=== PATIENT | female | born 2000 | race Caucasian/White ===

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

== ENCOUNTER → 2018-10-31 16:20 | Outpatient (CLI) | payer OTHER, SELFPAY ==
[2018-10-31 12:03] VITALS: BMI 19.9
[2018-10-31 18:50] LABS: Chlamydia Trachomatis by PCR Negative (Negative)
[2018-10-31 18:51] LABS: Neisserai gonorrhoeae by PCR Negative (Negative); Probe Check PASS; Sample Adequacy Control PASS; Specimen Processing Control PASS
== END ==
PROVIDERS: Family Provider Family Medicine; PCP Family Medicine; Referring Provider Obstetrics & Gynecology; Visit Provider Obstetrics & Gynecology
DX: Z34.90 Encounter for supervision of normal pregnancy, unspecified, unspecified trimester (principal)
CPT/HCPCS: 87491; 87591

== ENCOUNTER → 2018-11-17 11:37 | Outpatient (CLI) | payer OTHER, SELFPAY ==
[2018-10-31 12:03] VITALS: BMI 19.9
[2018-11-17 12:19] LABS: Absolute Lymphocyte Count 1.72 X10^3/uL (0.83-4.51); Absolute Neutrophil Count 8.1 X10^3/uL (2.0-7.7); Basophil# 0.06 X10^3/uL; Basophil% 0.6 % (0-1); Eosinophil# 0.21 X10^3/uL; Hematocrit 40.7 % (37-47); Hemoglobin 13.7 g/dL (12.0-15.0); Lymphocyte # 1.72 X10^3/ul (4.0); Lymphocyte % 16.1 % (19-41); Mean Corp Hgb Conc 33.7 g/dL (32-36); Mean Corpuscular Hgb 30.3 pg (27.0-32.0); Mean Platelet Vol. 9.8 fl (6.2-12.0); Monocyte# 0.55 X10^3/uL; Monocyte% 5.2 % (0-10); NRBC Flagged by Analyzer 0 % (0-5); Neutrophil # 8.09 X10^3/uL (2.7-7.7); Neutrophil % 75.8 % (47-70); Platelet Count 308 K/mm3 (150-450); RBC Distribution Width CV 12.2 % (11.6-14.6); RBC Distribution Width SD 39.8 fl (35.1-43.9); Red Blood Count 4.52 M/mm3 (4.2-5.4); White Blood Count 10.7 K/mm3 (4.4-11.0)
[2018-11-17 13:25] LABS: HIV - WCH Non-Reactive (Nonreactive); Hepatitis B Surface Antigen Non-Reactive (Nonreactive); Rubella IgG 35.6 IU/mL
[2018-11-18 01:39] LABS: Rapid Plasmin Reagin (RPR) NONREACTIVE (NONREACTIVE)
[2018-12-01 11:03] LABS: Miscellaneous Lab Procedure RL
== END ==
PROVIDERS: Family Provider Family Medicine; PCP Family Medicine; Referring Provider Obstetrics & Gynecology; Visit Provider Obstetrics & Gynecology
DX: Z34.81 Encounter for supervision of other normal pregnancy, first trimester (principal)
CPT/HCPCS: 36415; 85025; 86592; 86703; 86762; 86850; 86900; 86901; 87340

== ENCOUNTER → 2019-01-17 12:17 | Outpatient (CLI) | payer OTHER, SELFPAY ==
[2018-11-30 09:43] VITALS: BMI 19.3
[2018-12-28 09:46] VITALS: BMI 19.3
--- NOTE | 2019-01-17 12:19 | US_ITS ---
STUDY: SECOND AND THIRD TRIMESTER OBSTETRICAL ULTRASOUND REASON FOR EXAM: Female, 18 years old evaluation of anatomy. LMP: 08/28/2018 TECHNIQUE: Transabdominal real-time exam with kerr scale image documentation. TECHNICAL QUALITY: Adequate. PRIOR ULTRASOUND: None. FINDINGS: There is a single intrauterine fetus. The fetus is in a cephalic presentation. There is demonstrated cardiac activity with a heart rate of 143 bpm. There is a normal amniotic fluid volume. The largest amniotic fluid pocket measures 4.5 x 7.9 cm. The amniotic fluid index (VANITA) is 15.0 cm. The placenta is posterior and not low-lying. There are Grade 0 placental changes. The cervix measures 3.6 cm in length. The adnexal regions are not visualized. BIOMETRY: BPD: 4.64 cm: 20 weeks, 0 days HC: 17.3 cm: 19 weeks, 5 days AC: 14.9 cm: 20 weeks, 1 days FL: 3.13 cm: 19 weeks, 4 days CI: 77.5 FL/BPD: 67.3 FL/AC: 21 HC/AC: 1.16 age by current US: 19 weeks, 6 days. MARCELO by current US: 06/06/2018. Estimated weight: 323 grams, +/- 48 grams, 27 %. Age by LMP: 20 weeks, 1 days. MARCELO by LMP: 06/04/2018. ANATOMY: Gender: Male Cranium: Normal lateral ventricles. Normal choroid plexus. Normal cerebellum. Normal cisterna magna. Normal face, nose and lips. Chest: Normal 4-chamber heart. Abdomen/Pelvis: Normal diaphragm. Normal stomach. Normal abdominal wall. Normal cord insertion. Normal 3 vessel cord. Normal kidneys. Normal bladder. Spine: Normal cervical spine. Normal thoracic spine. Normal lumbar spine. Normal sacrum. Extremities: Normal bilateral upper extremities. Normal bilateral lower extremities. US/OB Anatomy Scan IMPRESSION: Single living male fetus of 19 weeks and 6 days with an MARCELO of 06/06/2018. Normal anatomy. Grade 0 posterior and not low lying placenta. Amniotic fluid index of 15.0 cm. Cervical length of 3.6 cm. weight of 323 g +/- 48 g, 27 percentile. Electronically Signed: Racheal Bah MD at 21:27 EST , Service support ,
== END ==
PROVIDERS: Family Provider Family Medicine; PCP Family Medicine; Referring Provider Obstetrics & Gynecology; Visit Provider Obstetrics & Gynecology
DX: Z36.89 Encounter for other specified antenatal screening (principal); Z3A.19 19 weeks gestation of pregnancy
CPT/HCPCS: 76805

== ENCOUNTER → 2019-01-27 12:28 | Outpatient (CLI) | payer OTHER, SELFPAY ==
[2019-01-27 10:27] VITALS: BMI 19.3
== END ==
PROVIDERS: Family Provider Family Medicine; PCP Family Medicine; Referring Provider Obstetrics & Gynecology; Visit Provider Obstetrics & Gynecology
DX: R30.0 Dysuria (principal)
CPT/HCPCS: 87086; 87088

== ENCOUNTER → 2019-03-15 10:27 | Outpatient (CLI) | payer OTHER, SELFPAY ==
[2019-03-15 09:53] VITALS: BMI 19.3
[2019-03-15 10:50] LABS: Absolute Lymphocyte Count 1.48 X10^3/uL (0.83-4.51); Absolute Neutrophil Count 7.4 X10^3/uL (2.0-7.7); Basophil# 0.05 X10^3/uL; Basophil% 0.5 % (0-1); Eosinophil# 0.21 X10^3/uL; Eosinophils% 2.2 % (0-5); Hematocrit 37.3 % (37-47); Hemoglobin 12.6 g/dL (12.0-15.0); Lymphocyte # 1.48 X10^3/ul (4.0); Lymphocyte % 15.3 % (19-41); Mean Corp Hgb Conc 33.8 g/dL (32-36); Mean Corpuscular Hgb 31.3 pg (27.0-32.0); Mean Corpuscular Volume 92.8 fL (81-99); Mean Platelet Vol. 9.3 fl (6.2-12.0); Monocyte# 0.51 X10^3/uL; Monocyte% 5.3 % (0-10); NRBC Flagged by Analyzer 0 % (0-5); Neutrophil # 7.35 X10^3/uL (2.7-7.7); Platelet Count 251 K/mm3 (150-450); RBC Distribution Width CV 12.2 % (11.6-14.6); RBC Distribution Width SD 42.2 fl (35.1-43.9); Red Blood Count 4.02 M/mm3 (4.2-5.4); White Blood Count 9.7 K/mm3 (4.4-11.0)
[2019-03-15 11:08] LABS: Glucose Challenge Gest 1H 50g 97 mg/dL (70-140)
== END ==
LOC: PAVLAB 10:29
PROVIDERS: PCP Family Medicine; Referring Provider Obstetrics & Gynecology; Visit Provider Obstetrics & Gynecology
DX: Z34.92 Encounter for supervision of normal pregnancy, unspecified, second trimester (principal); Z3A.28 28 weeks gestation of pregnancy
CPT/HCPCS: 36415; 82950; 85025

== ENCOUNTER → 2019-03-30 15:31 | Outpatient (CLI) | payer OTHER, SELFPAY ==
[2019-03-29 08:52] VITALS: BMI 19.3
--- NOTE | 2019-03-30 15:33 | US_ITS ---
STUDY: SECOND AND THIRD TRIMESTER OBSTETRICAL ULTRASOUND - LIMITED REASON FOR EXAM: Female, 18 years old GROWTH LMP: August 29, 2018. PRIOR ULTRASOUND: Comparison is made with a prior examination dated January 17, 2019. TECHNIQUE: Transabdominal TECHNICAL QUALITY: Adequate. FINDINGS: There is a single intrauterine fetus. The fetus is in a cephalic presentation. There is demonstrated cardiac activity with a heart rate of 125 bpm. There is a normal amniotic fluid volume. The largest amniotic fluid pocket measures 5.9 cm. The amniotic fluid index (VANITA) is 15.51 cm. The placenta is posterior in location and is not low lying. There are Grade 0 placental changes. The cervix measures 3.3 cm in length. BIOMETRY: BPD: 7.11 cm: 28 weeks, 4 days HC: 29.63 cm: 30 weeks, 2 days AC: 25.54 cm: 29 weeks, 6 days FL: 5.47 cm: 29 weeks, 0 days Age by LMP: 30 weeks, 3 days. MARCELO by LMP: June 05, 2019. age by prior US: 30 weeks, 2 days. MARCELO by prior US: June 07, 2019. age by current US: 29 weeks, 3 days. MARCELO by current US: June 20, 2019. Estimated weight: 1389 grams, +/- 203 grams, 11 percentile. US/OB Limited With Biometrics IMPRESSION: Single live intrauterine gestation with a mean gestational age of 29 weeks and 3 days. The measurements obtained today fall within the normal expected range. Electronically Signed: Helder Paulino, at 10:36 EST , Service support ,
== END ==
PROVIDERS: PCP Family Medicine; Referring Provider Obstetrics & Gynecology; Visit Provider Obstetrics & Gynecology
DX: O26.843 Uterine size-date discrepancy, third trimester (principal); Z3A.00 Weeks of gestation of pregnancy not specified
CPT/HCPCS: 76816

== ENCOUNTER → 2019-05-03 11:30 | Outpatient (CLI) | payer OTHER, SELFPAY ==
[2019-03-29 08:52] VITALS: BMI 19.3
[2019-04-26 09:02] VITALS: BMI 19.3
--- NOTE | 2019-05-03 11:31 | US_ITS ---
STUDY: SECOND AND THIRD TRIMESTER OBSTETRICAL ULTRASOUND REASON FOR EXAM: Female, 18 years old GROWTH - SIZE SMALLER THAN DATES LMP: August 29, 2018. TECHNIQUE: Transabdominal TECHNICAL QUALITY: Adequate. PRIOR ULTRASOUND: Comparison is made with prior examination of March 30, 2019. FINDINGS: There is a single intrauterine fetus. The fetus is in a cephalic presentation. There is demonstrated cardiac activity with a heart rate of 1.4 bpm. There is a normal amniotic fluid volume. The largest amniotic fluid pocket measures 5.7 cm. The amniotic fluid index (VANITA) is 20.2 cm. The placenta is posterior in location and is not low lying. There are Grade 1 placental changes. The cervix was not measured due to the head positioning. The adnexal regions are not visualized. BIOMETRY: BPD: 7.9 cm: 31 weeks, 4 days HC: 30.8 cm: 34 weeks, 3 days AC: 29.7 cm: 33 weeks, 5 days FL: 6.6 cm: 33 weeks, 5 days CI: 74% FL/BPD: 83% FL/HC: FL/AC: 22% HC/AC: 1.04 age by current US: 33 weeks, 3 days. MARCELO by current US: June 18, 2019. Estimated weight: 2223 grams, +/- 325 grams, 10 %. age by prior US: 34 weeks, 2 days. MARCELO by prior US: June 12, 2019. Age by LMP: 35 weeks, 2 days. MARCELO by LMP: June 05, 2019. US/OB Limited With Biometrics IMPRESSION: Single live intrauterine gestation with a mean gestational age of 34 weeks and 2 days. The measurements obtained today fall within the lower normal expected range. Electronically Signed: Helder Paulino, at 14:49 EDT , Service support ,
== END ==
PROVIDERS: PCP Family Medicine; Referring Provider Obstetrics & Gynecology; Visit Provider Obstetrics & Gynecology
DX: O26.843 Uterine size-date discrepancy, third trimester (principal); Z3A.34 34 weeks gestation of pregnancy
CPT/HCPCS: 76816

== ENCOUNTER → 2019-05-10 | Outpatient (CLI) | payer OTHER, SELFPAY ==
[2019-05-10 08:54] VITALS: BMI 19.3
== END | disposition home or self-care (01) ==
LOC: LABSPEC 14:00
PROVIDERS: PCP Family Medicine; Referring Provider Obstetrics & Gynecology; Visit Provider Obstetrics & Gynecology
DX: Z34.81 Encounter for supervision of other normal pregnancy, first trimester (principal)
CPT/HCPCS: 87081

== ENCOUNTER 2019-05-25 02:37 | Inpatient (IN) | payer OTHER, SELFPAY ==
[2019-05-18 08:38] VITALS: BMI 19.3
[2019-05-25] MEDS: Lactated Ringers 1,000 ML 50 ML IV (02:53)
[2019-05-25] MEDS: Lactated Ringers 500 ML 999 ML IV (03:03)
[2019-05-25] MEDS: fentaNYL-bupivacaine (epidural) 100 ML BAG EPIDURAL (04:25)
[2019-05-25] MEDS: Oxytocin 30 units/NS 500 ml 30 UNITS/500 ML IV.SOLN 334 UNITS IV (05:12)
[2019-05-25 09:29] VITALS: BMI 22.7
--- NOTE | 2019-05-25 10:36 | NURSING ---
[email or web address] charting unavailable at this time. charting completed per downtime policy on paper from [id number] through [id number]
[2019-05-25 12:05] VITALS: BP 90/54; PULSE 80; RESP 16; TEMP 36.5
[2019-05-25 14:59] LABS: White Blood Count 10.6 K/mm3 (4.4-11.0)
[2019-05-25 15:00] LABS: Hematocrit 36.7 % (37-47); Hemoglobin 12.7 g/dL (12.0-15.0); Mean Corp Hgb Conc 34.6 g/dL (32-36); Mean Corpuscular Hgb 31.8 pg (27.0-32.0); Mean Corpuscular Volume 91.8 fL (81-99); Mean Platelet Vol. 10.1 fl (6.2-12.0); Platelet Count 204 K/mm3 (150-450); RBC Distribution Width CV 12.4 % (11.6-14.6); RBC Distribution Width SD 41.3 fl (35.1-43.9); Scan Indicated on CBC? Y/N NO
[2019-05-25 17:10] VITALS: BP 106/65; PULSE 73; RESP 16; TEMP 36.6
[2019-05-25] MEDS: Naproxen 250 MG Tablet 500 MG PO (17:17)
[2019-05-25 19:30] VITALS: BP 100/56; PULSE 79; RESP 16; TEMP 36.9
[2019-05-25 23:20] VITALS: BP 102/62; PULSE 76; RESP 16; TEMP 36.4
--- NOTE | 2019-05-26 03:38 | HP.PCM_ITS ---
- Problem List (1) IUGR (intrauterine growth restriction) Status: Acute Comment: mfm consult, twice weekly testing once with MFM and once with [facility] office. deliver by 39 (2) Status: Acute Qualifiers: Comment: NIPT-low risk, declines NTD screen. declines carrier. Anatomy US normal (3) Supervision of normal Status: Acute Qualifiers: Comment: PRR MARCELO 06/05/19 boy PC Mark Kennedy History Date of Admission: 05/25/19 Final MARCELO: 06/05/19 Gestational age: 38 Weeks and 4 Days History of this : This is a 19 year-old, , at 38 weeks gestational age presents IAL. she denies any vb admits lof good fm and regular ctx. she has had a complicated by IUGR with reassuring testing. Medical History: Medical History (Last Reviewed 05/18/19 @ 08:36 by Tamera Lo) Blood in stool K92.1 Hemorrhoid K64.9 Anal fissure (Resolved) K60.2 PVCs (premature ventricular contractions) (Resolved) I49.3 Surgical History: Surgical History (Last Reviewed 05/18/19 @ 08:36 by Tamera Lo) No pertinent past surgical history Allergies No Known Allergies Allergy (Verified 05/25/19 09:30) Home Medications: Home Medications prenat.vits,lj,kbw-[id number] 1 tab PO QDAY 03/12/17 hydrocortisone 2.5 % topical cream with perineal applicator 1 applic RC QD-BID PRN #30 g 11/16/17 promethazine 12.5 mg tablet 12.5 mg PO Q6H PRN #120 tab 11/01/18 Smoking Status: Never smoker Alcohol: None Number of Fetus(es): 1 NST - FHR Rate Baby A Baseline: 130 Variability:: Moderate Accelerations:: 15 x 15 Decelerations:: None NST Reactive:: Yes FHR Category:: Category I Uterine Activity:: regular History Past Pregnancies: Past Pregnancies previous term uncomplicated Labs: Mom's Labs & Results 05/25/19 05/25/19 02:53 02:53 WBC 10.6 RBC 4.00 L Hgb 12.7 Hct 36.7 L MCV 91.8 MCH 31.8 MCHC 34.6 RDW Std Deviation 41.3 RDW Coeff of Kendra 12.4 Plt Count 204 MPV 10.1 Blood Type B POSITIVE Antibody Screen NEGATIVE Course Did the patient receive Yes care? Labs Blood Type: B RH: POSITIVE RPR/VDRL/Syphilis Nonreactive Rubella status Immune HbSAg Negative Date Done: 11/18/19 Chlamydia Negative Gonorrhea Negative HIV/AIDS Non-Reactive Group B Strep: Negative Current Obstetrical History Gestational Diabetes No Incompetent Cervix No Infertility No IUGR Yes Macrosomia No Hypertension/Pre-eclampsia No Placenta Previa/Abruption No PTL/PROM No Uterine anomaly No Oligohydramnios No Polyhydramnios No Multiple gestation No Past Medical History Asthma No Diabetes No Hypertension No Heart disease No Mitral valve prolapse No Neurologic/Seizure disorder/ No Migraines Kidney disease No Liver disease No Varicosities No Clotting disorders/Hx of DVT No Thyroid Dysfunction No Other medical diseases No Psychiatric disorders No Major trauma No Abnormal PAP smear No Sleep apnea No Mammogram in the last 2 years No Social History Marital Status: Alleged father Peter Hx Smoking No Smoking Status Never smoker Expected Infant Delivery Method: Spontaneous Vaginal Review of Systems Constitutional: Denies: Fever, Malaise Eyes: Denies: Blurred vision, Vision Change HEENT: Denies: Head Aches, Visual Changes Cardiovascular: Denies: Chest Pain, Palpitations Respiratory: Denies: Cough, Shortness of Breath, Wheezing Gastrointestinal: Denies: Abdominal Pain, Diarrhea, Nausea, Vomiting Genitourinary: Denies: Dysuria, Hematuria Musculoskeletal: Denies: Joint Pain, Muscle pain Skin: Denies: Lesions, Rash Neurological: Denies: Blurred vision, Focal weakness, Headaches Psychiatric: Denies: Anxiety, Depression Endocrine: Denies: Heat/ Cold Intolerance Hematologic/ Lymphatic: Denies: Easy Bruising, Easy Bleeding Physical Exam Vitals: Vital Signs Temp Pulse Resp BP 97.5 F L 76 16 102/62 05/25/19 23:20 05/25/19 23:20 05/25/19 23:20 05/25/19 23:20 General: Alert, Cooperative, No apparent distress HEENT: Atraumatic, Normocephalic. Negative for: Thyromegaly, Lymphadenopathy Cardiovascular: Regular rate Lungs: Normal air movement Abdomen: Soft, Non Tender, Gravid Neurological: Deep Tendon Reflexes 2+/4 and Symmetrical, Neuro grossly intact. 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 Negative for: Vulvar lesions Estimated gestational size: Appropriate for gestational size Presentation: Cephalic Assessment/Plan All Active Problems (Last Reviewed 05/18/19 @ 08:36 by Tamera Lo) IUGR (intrauterine growth restriction) (Acute) (Acute) Supervision of normal (Acute) Abdominal or pelvic swelling, mass, or lump, left lower quadrant (Resolved) Active labor at term (Resolved) Anal fissure (Resolved) False labor (Resolved) PVCs (premature ventricular contractions) (Resolved) Supervision of normal first (Resolved) Uterine size-date discrepancy, third trimester (Resolved) This is a 19 year-old, , at 38 weeks gestational age presents IAL. Patient presents IAL, plan expectant management for , Pain management: epi. GBS negative Management of any complications: IUGR I have reviewed the [facility] and made any clinically relevant updates.
--- NOTE | 2019-05-26 03:42 | PCM.OPRPT ---
Problem List (1) IUGR (intrauterine growth restriction) Status: Acute Comment: mfm consult, twice weekly testing once with MFM and once with [facility] office. deliver by 39 (2) Status: Acute Qualifiers: Comment: NIPT-low risk, declines NTD screen. declines carrier. Anatomy US normal (3) Supervision of normal Status: Acute Qualifiers: Comment: PRR MARCELO 06/05/19 boy PC Mark Kennedy Vaginal Delivery Maternal Presentation: Active Labor ial Amniotic Fluid Description: Clear Final MARCELO: 06/05/19 Gestational age: 38 Weeks and 4 Days Date of Procedure: 05/25/19 Pre-Operative Diagnosis: ial Post-Operative Diagnosis: same Surgery/ Procedure Performed: Spontaneous Vaginal Delivery Type of Anesthesia: Epidural Description of Procedure: Patient began pushing and delivered the head in the ANASTASIIA presentation. The head was delivered atraumatically. The anterior and posterior shoulders delivered without complication followed by the rest of the and the infant was placed on the maternal abdomen. Delayed cord clamping was employed for approximately 60 seconds. Cord was clamped and cut and gentle traction was applied to the cord and the placenta delivered spontaneously immediately following it was noted to be intact with three-vessel cord. The perineum and vagina were inspected and noted to have no laceration. Patient and tolerated delivery well. Presentation: ANASTASIIA Placental Delivery Description: Spontaneous Placenta Disposition: [facility] Cord Entanglement: None Infant A gender: Male Episiotomy Description: None Laceration: None Medications given after delivery: IV Pitocin Complications: None Multi Select Codes - Urinary/Genital Urinary/Genital CPT Codes: 97243 Vaginal Delivery [facility]
--- NOTE | 2019-05-26 04:11 | PCM.PN.OB ---
Subjective: doing well no complaints pain controlled no CP SOB N V ambulating well tolerating po lochia moderate, going well - Physical Exam Vitals/I&O's: Vital Signs Temp Pulse Resp BP 97.5 F L 76 16 102/62 05/25/19 23:20 05/25/19 23:20 05/25/19 23:20 05/25/19 23:20 Oxygen Delivery Method Room Air Weight: 132 lb 6 oz Body Mass Index (BMI) 22.7 Intake and Output for Last 24 Hours 05/24/19 05/25/19 05/26/19 23:59 23:59 23:59 Intake Total 1248.33 / 1248.33 Output Total 1000 / 1000 Balance 248.33 / 248.33 General: Alert, Oriented x3 Laboratory Results 05/25/19 02:53: Blood Type B POSITIVE, Antibody Screen NEGATIVE 05/25/19 02:53: WBC 10.6, RBC 4.00 L, Hgb 12.7, Hct 36.7 L, MCV 91.8, MCH 31.8, MCHC 34.6, RDW Std Deviation 41.3, RDW Coeff of Kendra 12.4, Plt Count 204, MPV 10.1 Current Medications Acetaminophen (Tylenol) 1,000 mg PO Q8H PRN PRN PRN Reason: Pain Score 1-3/10 Bisacodyl (Dulcolax) 10 mg RECTAL UD PRN PRN Reason: If no BM Dibucaine (Dibucaine) 1 applic TOPICAL TID PRN PRN; Protocol PRN Reason: Discomfort Ephedrine Sulfate () 10 mg IV Q10M PRN PRN Reason: hypotension Ephedrine Sulfate () 10 mg IM Q30M PRN PRN Reason: hypotension Hydrocortisone (Hytone) 1 applic TOPICAL TID PRN PRN; Protocol PRN Reason: Discomfort Naloxone HCl 4 mg/ Dextrose 504 mls @ 0 mls/hr IV .Q0M PRN; Protocol PRN Reason: To maintain Resp. rate >10 Methylergonovine Maleate (Methergine) 0.2 mg IM X1 PRN PRN Reason: Excess bleeding/uterine atony Nalbuphine HCl (Nubain) 5 mg IV Q3H PRN PRN PRN Reason: ITCHING Naloxone HCl (Narcan) 0.02 mg IV Q1M PRN PRN Reason: RR< 10 AND PT UNRESPONSIVE Naproxen (Naprosyn) 500 mg PO Q8H PRN PRN PRN Reason: Pain Score 1-3/10 Last Admin: 05/25/19 17:17 Dose: 500 mg Documented by: Ondansetron HCl (Zofran) 4 mg IV Q4H PRN PRN PRN Reason: Nausea Oxycodone HCl (Oxyir) 5 - 10 mg PO Q4H PRN PRN PRN Reason: Pain Score 4-10/10 Senna/Docusate Sodium (Senokot-S, Shruthi-Colace) 1 - 2 tablet PO DAILY PRN PRN PRN Reason: Constipation Simethicone (Mylicon) 80 mg PO PCHS PRN PRN Reason: Indigestion/Stomach pain Sodium Chloride () 5 - 15 ml IV UD PRN PRN Reason: SALINE FLUSH Medical Necessity - Tobacco Use Smoking Status: Never smoker Assessment/Plan All Active Problems (Last Reviewed 05/18/19 @ 08:36 by Tamera Lo) IUGR (intrauterine growth restriction) (Acute) (Acute) Supervision of normal (Acute) Abdominal or pelvic swelling, mass, or lump, left lower quadrant (Resolved) Active labor at term (Resolved) Anal fissure (Resolved) False labor (Resolved) PVCs (premature ventricular contractions) (Resolved) Supervision of normal first (Resolved) Uterine size-date discrepancy, third trimester (Resolved) s/p PPD # 1 1. routine post delivery care 2. breast feeding- support given 3. rh positive 4. rubella immune
--- NOTE | 2019-05-26 04:20 | DCINST_ITS ---
Discharge Diet: No Restrictions Discharge Activity: Return to Normal Activity, May not drive while taking narcotic pain medications., May Shower May resume sexual activity in: 4-6 weeks Call your doctor if your incision/area has: Continuous Slow Oozing, Sudden Increased Bleeding, Increased Pain/ Swelling, Increased Redness, Foul Smelling Discharge Additional Instructions: If you experience any of the following, contact your healthcare provider. * Bleeding that soaks a pad every hour for 2 hours * Fever 100.4 or higher * Unrelieved incision or abdominal pain * Swelling, redness, discharge or bleeding from your incision or episiotomy site * Your incision begins to separate * Problems urinating (including inability to urinate or burning while urinating). * Visual changes * Severe headache * Flu-like symptoms * Pain or redness in one of both of your breasts * Pain, warmth, tenderness or swelling in your legs, especially the calf area * Frequent nausea and vomiting * Symptoms of depression or anxiety If you experience any of the following, call 911 or go to the nearest Emergency Room. * Chest pain * Problems breathing * Seizure activity * Partial or complete paralysis of a body part, slurred speech, weakness or drooping of the face, or a sudden inability to walk or hold your balance Allergies/Adverse Reactions: Allergies No Known Allergies Allergy (Verified 05/25/19 09:30) Medications to take at Discharge prenat.vits,lj,lmo-jcvf-rlfcb 1 tab PO QDAY 03/12/17 hydrocortisone 2.5 % topical cream with perineal applicator 1 applic RC QD-BID PRN #30 g 11/16/17 promethazine 12.5 mg tablet 12.5 mg PO Q6H PRN #120 tab 11/01/18 Please Follow Up With: Mary Ann Boogie MD - [phone] When: Call to make an appointment with your doctor in 6 weeks. If you had elevated Blood pressure or 4th degree laceration you will need to be seen in 2 weeks. Primary Care Physician: Ge Rodarte MD [Primary Care Provider] - Test Results: Test results from this visit will be discussed in further detail at your follow- up appointment, if applicable.
--- NOTE | 2019-05-26 04:20 | PCM.DCVAG ---
Discharge Diet: No Restrictions Discharge Activity: Return to Normal Activity, May not drive while taking narcotic pain medications., May Shower May resume sexual activity in: 4-6 weeks Call your doctor if your incision/area has: Continuous Slow Oozing, Sudden Increased Bleeding, Increased Pain/ Swelling, Increased Redness, Foul Smelling Discharge Additional Instructions: If you experience any of the following, contact your healthcare provider. Bleeding that soaks a pad every hour for 2 hours Fever 100.4 or higher Unrelieved incision or abdominal pain Swelling, redness, discharge or bleeding from your incision or episiotomy site Your incision begins to separate Problems urinating (including inability to urinate or burning while urinating). Visual changes Severe headache Flu-like symptoms Pain or redness in one of both of your breasts Pain, warmth, tenderness or swelling in your legs, especially the calf area Frequent nausea and vomiting Symptoms of depression or anxiety If you experience any of the following, call 911 or go to the nearest Emergency Room. Chest pain Problems breathing Seizure activity Partial or complete paralysis of a body part, slurred speech, weakness or drooping of the face, or a sudden inability to walk or hold your balance Allergies/Adverse Reactions: Allergies No Known Allergies Allergy (Verified 05/25/19 09:30) Medications to take at Discharge prenat.vits,lj,tcx-lpes-jqofj 1 tab PO QDAY 03/12/17 hydrocortisone 2.5 % topical cream with perineal applicator 1 applic RC QD-BID PRN #30 g 11/16/17 promethazine 12.5 mg tablet 12.5 mg PO Q6H PRN #120 tab 11/01/18 Please Follow Up With: Mary Ann Boogie MD - [phone] When: Call to make an appointment with your doctor in 6 weeks. If you had elevated Blood pressure or 4th degree laceration you will need to be seen in 2 weeks. Primary Care Physician: Ge Rodarte MD [Primary Care Provider] - Test Results: Test results from this visit will be discussed in further detail at your follow-up appointment, if applicable.
[2019-05-26 05:10] VITALS: BP 99/61; PULSE 68; RESP 16; TEMP 36.4
[2019-05-26 08:00] VITALS: BP 109/70; PULSE 81; RESP 18; TEMP 36.6
[2019-05-26] MEDS: Senna/Docusate Sodium 1 Tablet PO (09:29)
[2019-05-26 13:03] VITALS: BP 125/76; PULSE 78; RESP 18; TEMP 36.4
== END 2019-05-26 13:15 | disposition home or self-care (01) | DRG 807 ==
LOC: WPOUT 08:57 → WP 08:59
PROVIDERS: Admitting Provider Obstetrics & Gynecology; PCP Family Medicine; Referring Provider Obstetrics & Gynecology; Visit Provider Obstetrics & Gynecology
DX: O36.5990 Maternal care for other known or suspected poor fetal growth, unspecified trimester, not applicable or unspecified (principal); Z37.0 Single live birth; Z3A.38 38 weeks gestation of pregnancy
CPT/HCPCS: 59025; 59050; 85027; 86850; 86900; 86901; 99218; J7120; G0378

== ENCOUNTER 2019-07-14 17:30 | Outpatient (CLI) | payer OTHER, SELFPAY ==
[2019-07-05 10:42] VITALS: BMI 22.7
== END 2019-07-14 18:30 | disposition home or self-care (01) ==
LOC: WPOUT 17:39 → WP 17:40
PROVIDERS: PCP Family Medicine; Visit Provider Obstetrics & Gynecology
DX: P92.5 Neonatal difficulty in feeding at breast (principal)
CPT/HCPCS: 96158; 96159

== ENCOUNTER → 2020-03-28 12:07 | Outpatient (CLI) | payer OTHER, SELFPAY ==
[2019-07-05 10:42] VITALS: BMI 22.7
[2020-03-28 15:37] LABS: Erythrocyte Sedimentation Rate 5 mm/hr (0-30)
[2020-03-28 15:38] LABS: Absolute Lymphocyte Count 1.88 X10^3/uL (0.83-4.51); Absolute Neutrophil Count 4.7 X10^3/uL (2.0-7.7); Basophil# 0.09 X10^3/uL; Basophil% 1.2 % (0-1); Eosinophil# 0.34 X10^3/uL; Eosinophils% 4.5 % (0-5); Hematocrit 41.4 % (37-47); Hemoglobin 13.7 g/dL (12.0-15.0); Lymphocyte # 1.88 X10^3/ul (4.0); Lymphocyte % 24.9 % (19-41); Mean Corp Hgb Conc 33.1 g/dL (32-36); Mean Corpuscular Hgb 30.4 pg (27.0-32.0); Mean Corpuscular Volume 91.8 fL (81-99); Mean Platelet Vol. 10.3 fl (6.2-12.0); Monocyte# 0.51 X10^3/uL; Monocyte% 6.7 % (0-10); NRBC Flagged by Analyzer 0 % (0-5); Neutrophil # 4.71 X10^3/uL (2.7-7.7); Neutrophil % 62.3 % (47-70); Platelet Count 310 K/mm3 (150-450); RBC Distribution Width CV 12.5 % (11.6-14.6); RBC Distribution Width SD 42.5 fl (35.1-43.9); Red Blood Count 4.51 M/mm3 (4.2-5.4); White Blood Count 7.6 K/mm3 (4.4-11.0)
[2020-03-28 15:51] LABS: Vitamin B12 569 pg/mL (211-911); Vitamin D,25 Hydroxy 20.4 ng/mL
[2020-03-28 15:59] LABS: ALB/GLOB Ratio 1.2 RATIO (0.9-2.4); AST(SGOT) 11 U/L (15-37); Alanine Aminotransfer ALT/SGPT 25 U/L (13-56); Albumin, Serum 4.1 g/dL (3.2-5.0); Alkaline Phosphatase 74 U/L (45-117); Anion Gap 6 (5-15); BUN 16 mg/dL (7-18); BUN/Creat Ratio 20.2 RATIO (10-20); Chloride 108 mmol/L (98-107); Creatinine, Serum 0.79 mg/dL (0.55-1.02); EST Glomerular Filtration Rate 97 mL/min (>60); Est Glom Filt Rate - Afr Amer 117 mL/min (>60); Globulin 3.3 g/dL (2.2-4.2); Glucose 85 mg/dL (74-106); Iron 111 ug/dL (50-170); Potassium 3.9 mmol/L (3.5-5.1); Protein, Total 7.4 g/dL (6.4-8.2); Sodium Level 140 mmol/L (136-145); Thyroid Stim Hormone (TSH) 0.89 uIU/mL (0.358-3.74)
== END ==
PROVIDERS: PCP Family Medicine; Referring Provider Family Medicine; Visit Provider Family Medicine
DX: R53.83 Other fatigue (principal)
CPT/HCPCS: 36415; 80053; 82306; 82607; 83540; 84443; 85025; 85652

== ENCOUNTER → 2020-06-25 16:22 | Outpatient (CLI) | payer OTHER, SELFPAY ==
[2019-07-05 10:42] VITALS: BMI 22.7
[2020-06-25 18:32] LABS: hCG Titer Quant., Serum 2410 mIU/mL (1-3)
== END ==
PROVIDERS: Nurse Practitioner Women's Health; PCP Family Medicine; Referring Provider Obstetrics & Gynecology; Visit Provider Obstetrics & Gynecology
DX: Z78.9 Other specified health status (principal)
CPT/HCPCS: 36415; 84702

== ENCOUNTER → 2020-06-27 16:26 | Outpatient (CLI) | payer OTHER, SELFPAY ==
[2019-07-05 10:42] VITALS: BMI 22.7
[2020-06-27 18:36] LABS: hCG Titer Quant., Serum 3241 mIU/mL (1-3)
== END ==
PROVIDERS: PCP Family Medicine; Referring Provider Obstetrics & Gynecology; Visit Provider Obstetrics & Gynecology
DX: Z34.90 Encounter for supervision of normal pregnancy, unspecified, unspecified trimester (principal)
CPT/HCPCS: 36415; 84702

== ENCOUNTER → 2020-07-09 16:39 | Outpatient (CLI) | payer OTHER, SELFPAY ==
[2019-07-05 10:42] VITALS: BMI 22.7
--- NOTE | 2020-07-09 16:42 | US_ITS ---
STUDY: FIRST TRIMESTER OBSTETRICAL ULTRASOUND REASON FOR EXAM: Female, 20 years old well being LMP: Unknown. TECHNIQUE: Transvaginal TECHNICAL QUALITY: Adequate. PRIOR ULTRASOUND: None. FINDINGS: There is visualization of a single gestational sac in a normal intrauterine position. The mean sac diameter (MSD) measures 1.21 cm, indicating an estimated gestational age (EGA) of 6 weeks, 0 days. The gestational sac shape is within normal limits. There is a visualized yolk sac. The yolk sac measures 2.3 mm.. The placenta is non-visualized. There is visualization of a live embryo. The crown-rump length (CRL) measures 1.39 cm, indicating an estimated gestational age (EGA) of 7 weeks, 5 days. There is demonstrated cardiac activity with a heart rate of 149 bpm. The estimated gestation age (EGA) by LMP: LMP is unknown. The estimated gestation age (EGA) by US is 6 weeks, 6 days. The estimated date of delivery (MARCELO) by US is 02/26/2021. The uterus measures 6.9 x 6.9 x 4.7 cm. There is no demonstrated uterine fibroid. The cervix is closed. There is a hypoechoic area with subtle internal echoes likely representing a small subchorionic hemorrhage measuring 0.4 x 0.7 x 0.5 cm. There is a small cystic structure within the left side of the differential diagnosis consisting of a simple cysts, hemorrhage or second gestational sac without pole or yolk sac seen. The right ovary measures 2.5 x 1.9 x 1.9 cm. There is no right ovarian cyst. There is no visualized right adnexal mass or complex lesion. There is normal DOPPLER flow. The left ovary measures 2.8 x 2.7 x 1.8 cm. There is a left ovarian cyst measuring 1.4 x 1.3 x 0.8 cm There is no visualized left adnexal mass or complex lesion. There is normal DOPPLER flow. There is no fluid in the cul de sac. US/Transvaginal w/Preg US IMPRESSION: Single live intrauterine with ultrasound age of 6 weeks and 6 days and estimated date of delivery of 02/26/2021. Normal cardiac activity. Small subchorionic hemorrhage as described. Small focus of cystic structure adjacent to the gestational sac with differential diagnosis described above. Electronically Signed: Sandy Sunshine MD at 3:45 EDT , Service support ,
== END ==
PROVIDERS: PCP Family Medicine; Referring Provider Obstetrics & Gynecology; Visit Provider Obstetrics & Gynecology
DX: O36.80X0 Pregnancy with inconclusive fetal viability, not applicable or unspecified (principal); Z3A.01 Less than 8 weeks gestation of pregnancy
CPT/HCPCS: 76817

== ENCOUNTER 2020-08-03 19:20 | Day surgery (SDC) | payer OTHER, SELFPAY ==
[2020-07-31 15:10] VITALS: BMI 20.4
--- NOTE | 2020-08-03 | POC_PTH ---
PATIENT: KATY TORRES LOC: [facility] [place] U#:[id number] AGE/SX: 20/F ROOM: RE08/03/[address]: Dr. Mary Ann Boogie MD : 2000 BED: DIS: 08/04/2020 SPEC #: [id number] RECD: 08/05/20 08:19 STATUS: SHORTY REKermit #: [id number] YOGESH: 08/03/20 00:[address]: Mary Ann Boogie DEPT: SURGICAL PATHOLOGY RECD BY: Erick Novoa ENTERED: 08/05/20 09:56 SP TYPE: PROD CONC OTHR DR: Dr. Julian Rodarte MD Tissues: Product of conception, NOS Procedures: Surgery Specimen Level IV HEADER OPERATION: Suction dilation and curettage PRE-OP DIAGNOSIS: Incomplete TISSUE SUBMITTED: Products of conception MICROSCOPIC DIAGNOSIS Endometrium, curettage: Chorionic villi, decidualized stroma and trophoblastic cells consistent with products of conception. AM:angela 08/06/2020 MICROSCOPIC DESCRIPTION Slides are reviewed. GROSS DESCRIPTION Received in fixative is one container labeled with the patient's name and designated products of conception. The specimen consists of multiple irregular fragments of red-fox soft tissue that in aggregate measure 8 x 5 x 1 cm. parts are not grossly recognized. Landscape Drafter portions are submitted in three cassettes. / AM:angela 08/05/20 TC:5 CPT: 48545
[2020-08-03 19:21] VITALS: BP 132/77; PULSE 122; RESP 15; TEMP 37.3; O2SAT 97; BMI 20.3
--- NOTE | 2020-08-03 19:45 | ED.VIS.FEGU ---
HPI <Dr. Alyx Ware MD - Last Filed: 08/03/20 22:47> HPI - Female History of Present Illness Informant: patient Narrative Narrative: Patient presents secondary to vaginal bleeding with a miscarriage. Patient is currently 10 weeks . They did ultrasound 3 days ago that showed no heartbeat. Patient states that she passed the baby in tissue approximate hour prior to arrival. She is still bleeding heavily and having cramping. She was advised by the nurse practitioner to come to the emergency room. PFSH <Dr. Alyx Ware MD - Last Filed: 08/03/20 22:47> PFSH Medical History Anal fissure Blood in stool Hemorrhoid PVCs (premature ventricular contractions) Home Medications prenat.vits,lj,ife-[id number] 1 tab PO DAILY 07/17/20 [History Last Taken Unknown] cetirizine [Zyrtec] 10 mg PO DAILY 08/03/20 [History Last Taken Unknown] Allergy/AdvReac Type Severity Reaction Status Date / Time No Known Allergies Allergy Verified 08/03/20 19:25 Family History Mother Colitis Surgical History No pertinent past surgical history Social History household members: spouse and children number of children: 2 current occupational status: unemployed Smoking Status: Never smoker alcohol intake: never substance use type: does not use caffeine: No what type of physical activity do you participate in: none seatbelt use: always additional social history: patient works at [employer], 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 Alyx Ware MD - Last Filed: 08/03/20 22:47> ROS ED Constitutional Constitutional ED: Denies chills or fever(s) Eyes Eyes: Denies change in vision ENT ENT ED: Denies ear pain Cardiovascular Cardiovascular: Denies chest pain or palpitations Respiratory/Chest Respiratory/Chest: Denies cough or dyspnea Gastrointestinal Gastrointestinal: Reports abdominal pain; Denies vomiting Genitourinary Genitourinary ED: Denies dysuria Integumentary Denies rash Neurologic Neurologic: Denies headache(s) Psychiatric Psychiatric: Denies depression Hematologic/Lymphatic Hematologic/Lymphatic: Denies easy bleeding or easy bruising Allergic/Immunologic Allergic/Immunologic ED: Denies urticaria EXAM <Dr. Alyx Ware MD - Last Filed: 08/03/20 22:47> Physical Exam Const Vital Signs: 08/03/20 19:21 08/03/20 21:23 08/03/20 21:54 Temperature 99.2 F H Temperature Source Temporal Pulse Rate 122 H 93 83 Respiratory Rate 15 16 16 Blood Pressure 132/77 H 105/62 91/55 L Blood Pressure Mean 95 76 67 Blood Pressure Source Blood Pressure Position Blood Pressure Location Pulse Ox 97 98 98 Oxygen Delivery Method Room Air Room Air Room Air 08/03/20 22:36 08/03/20 22:39 08/03/20 22:47 Temperature 96.6 F L Temperature Source Temporal Pulse Rate 86 88 98 Respiratory Rate 16 16 16 Blood Pressure 86/55 L 90/65 91/75 Blood Pressure Mean 65 73 80 Blood Pressure Source Monitor Blood Pressure Position Semi-Fowlers Blood Pressure Location Left Arm Pulse Ox 99 100 99 Oxygen Delivery Method Room Air Room Air Room Air Positive well nourished and well developed General Appearance ED: well developed Eyes PERRL and EOMs intact bilaterally Neck supple Chest Wall inspection of chest normal and palpation of chest normal Resp normal respiratory effort and clear to auscultation bilaterally Cardio regular rhythm Rate: tachycardic GI normal to inspection, nondistended, normoactive bowel sounds and soft to palpation Narrative: Pelvic examination was performed. Patient does have heavy vaginal bleeding with passing of clots. Neuro oriented x3 Sensorium / Orientation: alert Psych Mood & Affect: tearful <Dr. Mary Ann Boogie MD - Last Filed: 08/03/20 23:26> Physical Exam Const Vital Signs: 08/03/20 19:21 08/03/20 21:23 08/03/20 21:54 Temperature 99.2 F H Temperature Source Temporal Pulse Rate 122 H 93 83 Respiratory Rate 15 16 16 Blood Pressure 132/77 H 105/62 91/55 L Blood Pressure Mean 95 76 67 Blood Pressure Source Blood Pressure Position Blood Pressure Location Pulse Ox 97 98 98 Oxygen Delivery Method Room Air Room Air Room Air 08/03/20 22:36 08/03/20 22:39 08/03/20 22:47 Temperature 96.6 F L Temperature Source Temporal Pulse Rate 86 88 98 Respiratory Rate 16 16 16 Blood Pressure 86/55 L 90/65 91/75 Blood Pressure Mean 65 73 80 Blood Pressure Source Monitor Blood Pressure Position Semi-Fowlers Blood Pressure Location Left Arm Pulse Ox 99 100 99 Oxygen Delivery Method Room Air Room Air Room Air MDM <Dr. Alyx Ware MD - Last Filed: 08/03/20 22:47> MDM MDM Narrative Medical decision making narrative: Patient was ordered a liter of IV fluid. Lab work is obtained. Lab Data Attestation: I reviewed the patient's lab results. Labs: Laboratory Results - last 24 hr 08/03/20 08/03/20 19:45 19:45 WBC 10.7 RBC 4.25 Hgb 13.2 Hct 39.4 MCV 92.7 MCH 31.1 MCHC 33.5 RDW Std Deviation 41.1 RDW Coeff of Kendra 11.9 Plt Count 312 MPV 9.4 Immature Gran % (Auto) 0.400 Neut % (Auto) 63.3 Lymph % (Auto) 22.8 Coosa % (Auto) 7.6 Eos % (Auto) 5.1 H Baso % (Auto) 0.8 Absolute Neuts (auto) 6.8 Absolute Lymphs (auto) 2.44 Nucleated RBC % 0 Sodium 138 Potassium 3.7 Chloride 106 Carbon Dioxide 26.0 Anion Gap 6 BUN 10 Creatinine 0.74 Estim Creat Clear Calc 98.20 Est GFR (MDRD) Af Amer 126 Est GFR (MDRD) Non-Af 104 BUN/Creatinine Ratio 13.5 Glucose 96 Calcium 9.0 Radiography Diagnostic Testing: Radiology Impression Obstetrics Ultrasound 08/03/20 20:26 IMPRESSION: No IUP demonstrated. Thickened heterogeneous endometrial stripe at 18 mm with blood flow within the endometrial canal consistent with retained products of conception or neoplasia. Findings may represent missed AB. at 2234 Reported and signed by: Alphonso Ruano MD Electronically Signed: Alphonso Ruano MD at 22:33 EDT Tel , Service support , Treatment and Re-Evaluation Comments:: Patient was discussed with Dr. Boogie shortly after I performed her pelvic examination. She did request that we go ahead and get an ultrasound. She also requested the patient be given p.o. Cytotec. Ultrasound was performed and does reveal thickened endometrial stripe at 18 mm with blood flow in the canal consistent with retained products. She was updated with these findings and she will begin with plan to take the patient for a D&C. Bleeding at this time has significantly improved. <Dr. Mary Ann Boogie MD - Last Filed: 08/03/20 23:26> [facility] Lab Data Labs: Laboratory Results - last 24 hr 08/03/20 08/03/20 19:45 19:45 WBC 10.7 RBC 4.25 Hgb 13.2 Hct 39.4 MCV 92.7 MCH 31.1 MCHC 33.5 RDW Std Deviation 41.1 RDW Coeff of Kendra 11.9 Plt Count 312 MPV 9.4 Immature Gran % (Auto) 0.400 Neut % (Auto) 63.3 Lymph % (Auto) 22.8 Coosa % (Auto) 7.6 Eos % (Auto) 5.1 H Baso % (Auto) 0.8 Absolute Neuts (auto) 6.8 Absolute Lymphs (auto) 2.44 Nucleated RBC % 0 Sodium 138 Potassium 3.7 Chloride 106 Carbon Dioxide 26.0 Anion Gap 6 BUN 10 Creatinine 0.74 Estim Creat Clear Calc 98.20 Est GFR (MDRD) Af Amer 126 Est GFR (MDRD) Non-Af 104 BUN/Creatinine Ratio 13.5 Glucose 96 Calcium 9.0 Radiography Diagnostic Testing: Radiology Impression Obstetrics Ultrasound 08/03/20 20:26 IMPRESSION: No IUP demonstrated. Thickened heterogeneous endometrial stripe at 18 mm with blood flow within the endometrial canal consistent with retained products of conception or neoplasia. Findings may represent missed AB. at 2234 Reported and signed by: Alphonso Ruano MD Electronically Signed: Alphonso Ruano MD at 22:33 EDT Tel , Service support , Discharge Plan Dx/Rx/DC Orders Clinical Impression: Incomplete Disposition Disposition: Acute Care Hospital [facility] [place] [facility]
[2020-08-03 19:51] LABS: Absolute Lymphocyte Count 2.44 X10^3/uL (0.83-4.51); Absolute Neutrophil Count 6.8 X10^3/uL (2.0-7.7); Basophil# 0.09 X10^3/uL; Basophil% 0.8 % (0-1); Eosinophil# 0.55 X10^3/uL; Eosinophils% 5.1 % (0-5); Hematocrit 39.4 % (37-47); Hemoglobin 13.2 g/dL (12.0-15.0); Lymphocyte # 2.44 X10^3/ul (0.83-4.51); Lymphocyte % 22.8 % (19-41); Mean Corp Hgb Conc 33.5 g/dL (32-36); Mean Corpuscular Hgb 31.1 pg (27.0-32.0); Mean Corpuscular Volume 92.7 fL (81-99); Mean Platelet Vol. 9.4 fl (6.2-12.0); Monocyte# 0.81 X10^3/uL; Monocyte% 7.6 % (0-10); NRBC Flagged by Analyzer 0 % (0-5); Neutrophil # 6.76 X10^3/uL (2.7-7.7); Neutrophil % 63.3 % (47-70); Platelet Count 312 K/mm3 (150-450); RBC Distribution Width CV 11.9 % (11.6-14.6); RBC Distribution Width SD 41.1 fl (35.1-43.9); Red Blood Count 4.25 M/mm3 (4.2-5.4); White Blood Count 10.7 K/mm3 (4.4-11.0)
[2020-08-03] MEDS: 0.9% Normal Saline 1,000 ML 1000 ML IV (19:51)
[2020-08-03] MEDS: Ondansetron 4 MG/2 ML Vial IV (19:52)
[2020-08-03] MEDS: Ketorolac 30 MG/ML Syringe IV (19:53)
--- NOTE | 2020-08-03 19:56 | ED.RN ---
pt refused morphine at this time.
[2020-08-03 20:07] LABS: Anion Gap 6 (5-15); BUN 10 mg/dL (7-18); BUN/Creat Ratio 13.5 RATIO (10-20); Chloride 106 mmol/L (98-107); Creatinine, Serum 0.74 mg/dL (0.55-1.02); EST Glomerular Filtration Rate 104 mL/min (>60); Est Glom Filt Rate - Afr Amer 126 mL/min (>60); Glucose 96 mg/dL (74-106); Potassium 3.7 mmol/L (3.5-5.1); Sodium Level 138 mmol/L (136-145)
[2020-08-03] MEDS: Morphine 2 MG/ML Syringe IV (20:22)
--- NOTE | 2020-08-03 20:26 | US_ITS ---
HISTORY: Miscarriage. Bleeding. 76 images. Comparison study is from July 09, 2020 when the patient was . Findings: Endovaginal imaging: The cervix appears to contain some heterogeneous tissue.. The uterus measures 11.3 x 5.1 x 5.5 cm. The endometrial stripe is heterogeneous. Endometrial stripe thickness is measured at 18 mm. Color Doppler imaging demonstrates flow within the endometrial canal. The left ovary measures 1.9 x 1.9 x 1.1 cm. Color Doppler imaging demonstrates flow to the left ovarian parenchyma. The right ovary measures 2.2 x 1.0 x 1.7 cm. Color Doppler imaging demonstrates flow to left ovarian parenchyma. US/Transvaginal w/Preg US IMPRESSION: No IUP demonstrated. Thickened heterogeneous endometrial stripe at 18 mm with blood flow within the endometrial canal consistent with retained products of conception or neoplasia. Findings may represent missed AB. at 2234 Reported and signed by: Alphonso Ruano MD Electronically Signed: Alphonso Ruano MD at 22:33 EDT Tel , Service support ,
[2020-08-03] MEDS: miSOPROStol 200 MCG Tablet 800 MCG PO (21:07)
[2020-08-03] MEDS: 0.9% Normal Saline 1,000 ML 150 ML IV (21:11)
[2020-08-03 21:23] VITALS: BP 105/62; PULSE 93; RESP 16; O2SAT 98
[2020-08-03 21:54] VITALS: BP 91/55; PULSE 83; RESP 16; O2SAT 98
[2020-08-03] MEDS: 0.9% Normal Saline 1,000 ML 999 ML IV (22:06)
[2020-08-03 22:36] VITALS: BP 86/55; PULSE 86; RESP 16; O2SAT 99
[2020-08-03 22:39] VITALS: BP 90/65; PULSE 88; RESP 16; O2SAT 100
[2020-08-03 22:47] VITALS: BP 91/75; PULSE 108; PULSE 98; RESP 14; RESP 16; TEMP 35.9; O2SAT 100; O2SAT 99; BMI 21.0
--- NOTE | 2020-08-03 23:18 | HP.PCM.OB_ITS ---
HPI - General HPI Narrative 20-year-old at 19 weeks of with demise measuring 8 weeks presents with heavy bleeding and having passed tissue at home. Initially patient was mildly tachycardic then after IV fluids this resolved. Initial hemoglobin was 13. Ultrasound shows 18 mm lining with increased blood flow suspected retained products of conception. Maternal Data Information MARCELO Calculator Estimated Delivery Date Method Current WG Current Estimate 02/26/21 Ultrasound #1 10w 3d PFSH [facility] Medical History Anal fissure Blood in stool Hemorrhoid PVCs (premature ventricular contractions) Home Medications prenat.vits,lj,ube-[id number] 1 tab PO DAILY 07/17/20 [History Last Taken Unknown] cetirizine [Zyrtec] 10 mg PO DAILY 08/03/20 [History Last Taken Unknown] Allergy/AdvReac Type Severity Reaction Status Date / Time No Known Allergies Allergy Verified 08/03/20 19:25 Family History Mother Colitis Surgical History No pertinent past surgical history Social History household members: spouse and children number of children: 2 current occupational status: unemployed Smoking Status: Never smoker alcohol intake: never substance use type: does not use caffeine: No what type of physical activity do you participate in: none seatbelt use: always additional social history: patient works at [employer], just finished school for [employer] History 3 Elective abortions Hx Para 2 Spontaneous abortions Hx # Term Pregnancies 2 Ectopic pregnancies Hx # Pregnancies Multiple births # of living children 2 Past Pregnancies Del. Date Name GA/Weeks Outcome Route Bth Weight Infant Gen Labor Lgth Anesthesia Del Locatn Provider FOB 09/13/17 [place] 39 live - full term Male epi dural [facility] 05/25/19 [place] live - full term 6# 9oz Male epidu ral [facility] Dr. Keagan Benavides Delivery Date: 09/13/17 No notes to display Delivery Date: 05/25/19 IUGR [facility] Visit Details OB Flowsheet Initial Weight: Not Recorded Date -?-?-?-?-?-?-?-?-?-?-?-?- EGA Weight BP Urine Prot -?-?-?-?-?-?-?-?-?-?-?-?- Glucose FHR FuHt Pres Dilation -?-?-?-?-?-?-?-?-?-?-?-?- Effaced St Visit Note 07/31/20 -?-?-?-?-?-?-?-?-?-?-?-?- 10w 0d 115 lb 4 oz 110/60 -?-?-?-?-?-?-?-?-?-?-?-?- -?-?-?-?-?-?-?-?-?-?-?-?- GP - presented f or NOB. US showed CRL 7w5d with no cardiac activity. 08/03/20 -?-?-?-?-?-?-?-?-?-?-?-?- 10w 3d 119 lb 0.794 oz 105/ 62 91/55 86/55 90/65 91/75 91/75 -?-?-?-?-?-?-?-?-?-?-?-?- -?-?-?-?-?-?-?--?-?-?-?-?- ROS Review of Systems ROS Unobtainable: due to mental status and other Constitutional Constitutional: Reports systems reviewed and no addt'l complaints, except as documented; Denies as per HPI, change in weight, fatigue, fever(s), malaise, weakness or other Eyes Eyes: Reports systems reviewed and no addt'l complaints, except as documented; Denies as per HPI, change in vision or other ENT HEENT: Reports as per HPI and dizziness; Denies dry mouth, headache(s), loss taste/smell, nasal congestion, nasal discharge, neck pain, sore throat or other Respiratory/Chest Respiratory/Chest: Reports systems reviewed and no addt'l complaints, except as documented Gastrointestinal Gastrointestinal: Reports systems reviewed and no addt'l complaints, except as documented Genitourinary Genitourinary: Reports systems reviewed and no addt'l complaints, except as documented and as per HPI Musculoskeletal Musculoskeletal: Reports systems reviewed and no addt'l complaints, except as documented; Denies back pain or joint pain Neurologic Neurologic: Reports systems reviewed and no addt'l complaints, except as documented Psychiatric Psychiatric: Reports systems reviewed and no addt'l complaints, except as documented Endocrine Endocrinology: Reports systems reviewed and no addt'l complaints, except as documented Hematologic/Lymphatic Hematologic/Lymphatic: Reports systems reviewed and no addt'l complaints, except as documented Vital Signs Vital Signs Vital Signs: 08/03/20 19:21 08/03/20 21:23 08/03/20 21:54 Temperature 99.2 F H Temperature Source Temporal Pulse Rate 122 H 93 83 Respiratory Rate 15 16 16 Blood Pressure 132/77 H 105/62 91/55 L Blood Pressure Mean 95 76 67 Blood Pressure Source Blood Pressure Position Blood Pressure Location Pulse Ox 97 98 98 Oxygen Delivery Method Room Air Room Air Room Air 08/03/20 22:36 08/03/20 22:39 08/03/20 22:47 Temperature 96.6 F L Temperature Source Temporal Pulse Rate 86 88 98 Respiratory Rate 16 16 16 Blood Pressure 86/55 L 90/65 91/75 Blood Pressure Mean 65 73 80 Blood Pressure Source Monitor Blood Pressure Position Semi-Fowlers Blood Pressure Location Left Arm Pulse Ox 99 100 99 Oxygen Delivery Method Room Air Room Air Room Air Weight Weight: 119 lb 0.794 oz Body Mass Index (BMI) 21.0 Physical Exam Const alert, oriented x3 and no apparent distress HEENT normocephalic Head and Scalp: atraumatic Eyes EOMs intact bilaterally and conjunctivae normal Neck full ROM, no lymphadenopathy, supple and thyroid normal General: trachea midline Lymph Lymphatic: no lymphadenopathy noted Resp normal respiratory effort, no retractions, no use of accessory muscles and clear to auscultation bilaterally Cardio regular rhythm GI normal to inspection, nondistended, normoactive bowel sounds, soft to palpation, non-distended and no masses Inspection: Negative for abdominal distention Palpation: tender Speculum Exam - Vagina: vaginal bleeding Back/Spine no CVA tenderness Extremity normal to inspection Skin no rashes or lesions noted Neuro moves all extremities and deep tendon reflexes 2+ bilaterally Motor Exam: clonus absent Psych mental status grossly normal Labs Labs Labs: Blood Type B POSITIVE Antibody Screen NEGATIVE Hct 39.4 % (37-47) Hgb 13.2 g/dL (12.0-15.0) Obstetrics US Rubella IgG Antibody 35.6 IU/mL Hep Bs Antigen Non-Reactive (Nonreactive) HIV 1&2 Antibody Non-Reactive (Nonreactive) C.trachomatis DNA (PCR) Negative (Negative) Glucose 1 Hr 50 gm 97 mg/dL (70-140) Group B Strep DNA Negative (Negative) Rhogam given: No Miscellaneous Test RL Assessment & Plan (1) Incomplete : COMMENT: suction d and c 08/04/20 PLAN: proceed with surgery due to suspected retained products. After discussing the patient's diagnosis and treatment plan options, patient wishes to proceed with surgical management. I have discussed with the patient the risks, benefits, and alternatives of the procedure which include but are not limited to risks of anesthesia, bleeding, infection, possible damage to bowel, bladder, or surrounding vasculature which could lead to additional surgery to evaluate any complications. Patient agrees to procedure and wishes to proceed.
--- NOTE | 2020-08-03 23:28 | OP.PCM_ITS ---
Problems Associated Problem List Diagnoses (1) Incomplete : Report of Operation Date of Procedure: 08/04/20 Pre-Operative Diagnosis: see problem list Post-Operative Diagnosis: same Surgery/Procedure Performed:: Suction dilation and curettage Description of Surgical Findings:: no FHT present, Nonviable 9-10 weeks neurosurgery spine physician: None Type of Anesthesia: Local MAC Special Medications: none Specimen's removed: POC Drains: none Estimated Blood Loss (mL): 50 Fluids Replaced: crystalloid Description of Procedure: Patient was taken to the operating room and placed under MAC local anesthesia. She was prepped and draped in the normal sterile fashion the dorsal lithotomy position. Bladder was drained of clear urine and anterior lip of the cervix was grasped and the uterus sounded to 10mm. Cervix was progressively dilated to allow passage of a 8 then 10 mm suction curette. Progressive passes were made removing the retained products of conception without complication. Sharp curettage confirmed complete removal of the retained products. All instruments were removed from the vagina and excellent hemostasis was noted and the patient was taken to recovery in stable condition. Grafts/Implants Used: none Complications none Admit VTE Documentation VTE Present on Admission: No VTE Mechan Device Prophylaxis: SCD's Procedures Urinary/Genital [id number]: [id number] Trmt of incomplete Ab, any TM
--- NOTE | 2020-08-03 23:29 | PCM.DC ---
Discharge Instructions Diet Discharge Diet: No restrictions Activity Discharge Activity: Return to Normal Activity, May Shower and May Take a Tub Bath (after 1 week) May resume sexual activity in: 1-2 weeks Weight Bearing Status: Weight bearing as tolerated Lifting Restrictions: none Dressing / Incision Call your doctor if you observe: Fever of 101 or Higher, Using more than 1 pad per hour, Shortness of breath and Uncontrolled pain Follow Up Care Please Follow Up With: Mary Ann Boogie MD When: Call [phone] to schedule appointment. Test Results: Test results from this visit will be discussed in further detail at your follow-up appointment, if applicable. Discharge Plan Admission Primary Reason for Your Visit: miscarriage Attending Provider: Mary Ann Boogie Primary Care Provider: Ge Rodarte Discharge Orders/Prescriptions Prescriptions: No Action prenat.vits,lj,[id number] Tablet 1 tab PO DAILY RF: 0 cetirizine [Zyrtec] 10 mg Tablet 10 mg PO DAILY RF: 0 Referrals / Follow Up: Ge Rodarte MD [Primary Care Provider] - Mary Ann Boogie MD [STAFF PHYSICIAN] - 08/12/20 Disposition Disposition (needs filled in before D/C Order can be placed): Home, self care
[2020-08-04] VITALS (7 sets, daily range): BP systolic 88–103; BP diastolic 50–75; PULSE 76–97; RESP 16; TEMP 36.1–36.3; O2SAT 99–100
== END 2020-08-04 01:35 | disposition home or self-care (01) ==
LOC: ED 22:47 → SDC 23:03 → MS3 23:06
PROVIDERS: Emergency Provider Emergency Medicine; PCP Family Medicine; Visit Provider Obstetrics & Gynecology
PROC: (CPT 59812; principal; 2020-08-03 23:10)
DX: O03.4 Incomplete spontaneous abortion without complication (principal); Z3A.19 19 weeks gestation of pregnancy; Z87.59 Personal history of other complications of pregnancy, childbirth and the puerperium; Z56.0 Unemployment, unspecified
CPT/HCPCS: 59812; 76817; 80048; 85025; 88305; 99285; J7030; A4216; J2405

== ENCOUNTER → 2020-09-09 09:29 | Outpatient (CLI) | payer OTHER, SELFPAY ==
[2020-08-13 08:25] VITALS: BMI 21.0
[2020-09-09 10:17] LABS: hCG Titer Quant., Serum 57 mIU/mL (1-3)
== END ==
PROVIDERS: PCP Family Medicine; Referring Provider Obstetrics & Gynecology; Visit Provider Obstetrics & Gynecology
DX: O03.4 Incomplete spontaneous abortion without complication (principal)
CPT/HCPCS: 36415; 84702

== ENCOUNTER → 2020-09-11 11:33 | Outpatient (CLI) | payer OTHER, SELFPAY ==
[2020-08-13 08:25] VITALS: BMI 21.0
[2020-09-11 12:25] LABS: hCG Titer Quant., Serum 63 mIU/mL (1-3)
== END ==
PROVIDERS: PCP Family Medicine; Referring Provider Nurse Practitioner Women's Health; Visit Provider Nurse Practitioner Women's Health
DX: N91.2 Amenorrhea, unspecified (principal)
CPT/HCPCS: 36415; 84702

== ENCOUNTER → 2020-09-13 09:48 | Outpatient (CLI) | payer OTHER, SELFPAY ==
[2020-08-13 08:25] VITALS: BMI 21.0
[2020-09-13 10:32] LABS: Vitamin D,25 Hydroxy 44.9 ng/mL
[2020-09-13 10:33] LABS: hCG Titer Quant., Serum 58 mIU/mL (1-3)
== END ==
PROVIDERS: Obstetrics & Gynecology; PCP Family Medicine; Referring Provider Obstetrics & Gynecology; Visit Provider Obstetrics & Gynecology
DX: Z34.90 Encounter for supervision of normal pregnancy, unspecified, unspecified trimester (principal)
CPT/HCPCS: 36415; 82306; 84702

== ENCOUNTER → 2020-09-14 10:35 | Outpatient (CLI) | payer OTHER, SELFPAY ==
[2020-08-13 08:25] VITALS: BMI 21.0
--- NOTE | 2020-09-14 10:37 | US_ITS ---
EXAM: US PELVIS TRANSVAGINAL CLINICAL INDICATION: Status post DTC TECHNIQUE: Transvaginal pelvic ultrasound was performed with grayscale and color Doppler imaging. Transvaginal imaging was used for better evaluation of the endometrium and adnexa. This report was created using [employer] report gate5 technology. COMPARISON: None. FINDINGS: UTERUS/CERVIX: Within the endometrium of the uterine fundus, there is a 1.8 x 1.1 x 0.8 cm focal hyperechoic structure that demonstrates mild vascular flow. Uterus measures 9.4 x 6.7 x 4.4 cm. The endometrial complex measures 12 mm. Anteverted. There is no uterine mass. RIGHT OVARY: Right ovary measures 2.1 x 1.6 x 1.3 cm. Blood flow is present in the right ovary. LEFT OVARY: Left ovary measures 3.3 x 2.2 x 3.3 cm. Blood flow is present in the left ovary. Left ovarian mildly septated cyst measures up to 1.7 cm. SRU Consensus Conference guidelines ([place], et. al. Radiology 2019;293:359-371) suggest no follow-up is necessary. FREE FLUID: None. BLADDER: Empty bladder which cannot be evaluated with this probe. OTHER FINDINGS: No intrauterine identified. US/Transvaginal w/Preg US IMPRESSION: 1. Within the endometrium of the uterine fundus, there is a 1.8 x 1.1 x 0.8 cm focal hyperechoic structure that demonstrates mild vascular flow. This could potentially represent retained products of conception versus endometritis. 2. No intrauterine identified. Electronically Signed: Jorge Corral MD ([place]) at 17:24 EDT , Service support ,
== END ==
PROVIDERS: PCP Family Medicine; Referring Provider Obstetrics & Gynecology; Visit Provider Obstetrics & Gynecology
DX: O36.80X0 Pregnancy with inconclusive fetal viability, not applicable or unspecified (principal)
CPT/HCPCS: 76817

== ENCOUNTER → 2020-09-16 16:34 | Outpatient (CLI) | payer OTHER, SELFPAY ==
[2020-09-16 16:21] VITALS: BMI 21.0
[2020-09-16 19:19] LABS: hCG Titer Quant., Serum 141 mIU/mL (1-3)
== END ==
PROVIDERS: PCP Family Medicine; Visit Provider Obstetrics & Gynecology
DX: Z34.90 Encounter for supervision of normal pregnancy, unspecified, unspecified trimester (principal)
CPT/HCPCS: 36415; 84702

== ENCOUNTER → 2020-09-18 16:06 | Outpatient (CLI) | payer OTHER, SELFPAY ==
[2020-09-16 16:21] VITALS: BMI 21.0
[2020-09-18 17:55] LABS: hCG Titer Quant., Serum 271 mIU/mL (1-3)
== END ==
PROVIDERS: PCP Family Medicine; Visit Provider Obstetrics & Gynecology
DX: Z34.90 Encounter for supervision of normal pregnancy, unspecified, unspecified trimester (principal)
CPT/HCPCS: 36415; 84702

== ENCOUNTER → 2020-09-23 17:03 | Outpatient (CLI) | payer OTHER, SELFPAY ==
[2020-09-16 16:21] VITALS: BMI 21.0
--- NOTE | 2020-09-23 17:04 | US_ITS ---
STUDY: FIRST TRIMESTER OBSTETRICAL ULTRASOUND REASON FOR EXAM: Female, 20 years old viability LMP: Unknown. TECHNIQUE: Transvaginal TECHNICAL QUALITY: Adequate. PRIOR ULTRASOUND: None. FINDINGS: There is no demonstrated intrauterine gestational sac.. The uterus measures 8.8 x 6.0 x 4.7 cm. There is no demonstrated uterine fibroid. The cervix is closed. There is a 5 mm round hyperechoic mass in the anterior endometrial stripe and correlation with hysteroscopy would be useful. The right ovary measures 2.8 x 1.1 x 1.7 cm. There is no right ovarian cyst. There is no visualized right adnexal mass or complex lesion. The left ovary measures 2.3 x 1.5 x 1.7 cm. There is no left ovarian cyst. There is no visualized left adnexal mass or complex lesion. There is minimal fluid in the cul de sac. US/Transvaginal w/Preg US IMPRESSION: 1. No intrauterine . 2. 5 mm hyperechoic mass in the anterior aspect of the endometrial stripe and correlation with hysteroscopy would be useful. Electronically Signed: Дмитрий Yuen MD at 9:53 EDT Tel , Service support ,
== END ==
PROVIDERS: PCP Family Medicine; Referring Provider Obstetrics & Gynecology; Visit Provider Obstetrics & Gynecology
DX: Z34.90 Encounter for supervision of normal pregnancy, unspecified, unspecified trimester (principal)
CPT/HCPCS: 76817

== ENCOUNTER → 2020-09-27 16:41 | Outpatient (CLI) | payer OTHER, SELFPAY ==
[2020-09-16 16:21] VITALS: BMI 21.0
[2020-09-27 17:40] LABS: hCG Titer Quant., Serum 29 mIU/mL (1-3)
== END ==
PROVIDERS: PCP Family Medicine; Referring Provider Obstetrics & Gynecology; Visit Provider Obstetrics & Gynecology
DX: O20.0 Threatened abortion (principal); Z3A.00 Weeks of gestation of pregnancy not specified
CPT/HCPCS: 36415; 84702

== ENCOUNTER → 2020-10-05 11:15 | Outpatient (CLI) | payer OTHER, SELFPAY ==
[2020-09-16 16:21] VITALS: BMI 21.0
[2020-10-05 12:09] LABS: hCG Titer Quant., Serum 4 mIU/mL (1-3)
[2020-10-05 12:13] LABS: Thyroid Stim Hormone (TSH) 0.85 uIU/mL (0.358-3.74)
== END ==
PROVIDERS: PCP Family Medicine; Referring Provider Nurse Practitioner Women's Health; Visit Provider Nurse Practitioner Women's Health
DX: O03.9 Complete or unspecified spontaneous abortion without complication (principal); N96 Recurrent pregnancy loss
CPT/HCPCS: 36415; 84443; 84702; 86146; 86147

== ENCOUNTER → 2021-01-13 09:22 | Outpatient (CLI) | payer OTHER, SELFPAY ==
[2021-01-13 11:09] LABS: hCG Titer Quant., Serum 1258 mIU/mL (1-3)
== END ==
PROVIDERS: PCP Family Medicine; Referring Provider Obstetrics & Gynecology; Visit Provider Obstetrics & Gynecology
DX: Z34.90 Encounter for supervision of normal pregnancy, unspecified, unspecified trimester (principal)
CPT/HCPCS: 36415; 84702

== ENCOUNTER → 2021-01-15 10:39 | Outpatient (CLI) | payer OTHER, SELFPAY ==
[2021-01-15 11:46] LABS: hCG Titer Quant., Serum 2458 mIU/mL (1-3)
== END ==
PROVIDERS: PCP Family Medicine; Referring Provider Obstetrics & Gynecology; Visit Provider Obstetrics & Gynecology
DX: Z34.90 Encounter for supervision of normal pregnancy, unspecified, unspecified trimester (principal)
CPT/HCPCS: 36415; 84702

== ENCOUNTER → 2021-02-13 06:40 | Outpatient (CLI) | payer OTHER, SELFPAY ==
[2021-02-13 18:18] LABS: Amphetamine Urine VISTA NEGATIVE (<1000 ng/mL); Barbiturate Urine VISTA NEGATIVE (< 200 ng/mL); Benzodiazepine Urine VISTA NEGATIVE (< 200 ng/mL); Cocaine Urine VISTA NEGATIVE (< 300 ng/mL); Ecstacy Urine VISTA NEGATIVE (< 500 ng/mL); Methadone Urine VISTA NEGATIVE (< 300 ng/mL); PCP Urine VISTA NEGATIVE (< 25 ng/mL); THC Urine VISTA NEGATIVE (< 50 ng/mL); Vista UDS pH Range 6
[2021-02-18 00:06] LABS: Chlamydia By Nucleic Acid AMP Negative (Negative)
[2021-02-18 09:16] LABS: Gonococcus By Nucleic Acid AMP Negative (Negative)
[2021-02-19 13:42] LABS: HPV Reflexed? NOT INDICATED
== END ==
PROVIDERS: PCP Family Medicine; Referring Provider Obstetrics & Gynecology; Visit Provider Obstetrics & Gynecology
DX: Z12.4 Encounter for screening for malignant neoplasm of cervix (principal); Z34.80 Encounter for supervision of other normal pregnancy, unspecified trimester
CPT/HCPCS: 80307; 87086; 87088; 87491; 87591; 88175; G0145

== ENCOUNTER 2021-02-28 11:08 | Outpatient (CLI) | payer OTHER, SELFPAY ==
[2021-02-28 11:30] LABS: Absolute Lymphocyte Count 1.78 X10^3/uL (0.83-4.51); Basophil# 0.05 X10^3/uL; Basophil% 0.4 % (0-1); Eosinophil# 0.12 X10^3/uL; Hematocrit 37.9 % (37-47); Hemoglobin 12.8 g/dL (12.0-15.0); Lymphocyte # 1.78 X10^3/ul (0.83-4.51); Lymphocyte % 15.4 % (19-41); Mean Corp Hgb Conc 33.8 g/dL (32-36); Mean Corpuscular Hgb 30.5 pg (27.0-32.0); Mean Corpuscular Volume 90.2 fL (81-99); Mean Platelet Vol. 9.5 fl (6.2-12.0); Monocyte# 0.61 X10^3/uL; Monocyte% 5.3 % (0-10); NRBC Flagged by Analyzer 0 % (0-5); Neutrophil # 8.97 X10^3/uL (2.7-7.7); Neutrophil % 77.5 % (47-70); Platelet Count 309 K/mm3 (150-450); RBC Distribution Width CV 12.2 % (11.6-14.6); RBC Distribution Width SD 40.2 fl (35.1-43.9); White Blood Count 11.6 K/mm3 (4.4-11.0)
[2021-02-28 12:20] LABS: NATERA MAILED SPECIMEN
[2021-02-28 12:31] LABS: HIV - WCH Non-Reactive (Nonreactive); Hepatitis B Surface Antigen Non-Reactive (Nonreactive); Hepatitis C Antibody Non-Reactive (Nonreactive); Rubella IgG Reactive (Nonreactive); Syphilis Antibodies Non-reactive
== END 2021-02-28 23:59 | disposition short-term general hospital (02) ==
LOC: PAVLAB 11:10
PROVIDERS: PCP Family Medicine; Referring Provider Obstetrics & Gynecology; Visit Provider Obstetrics & Gynecology
DX: Z34.81 Encounter for supervision of other normal pregnancy, first trimester (principal)
CPT/HCPCS: 36415; 85025; 86703; 86762; 86780; 86803; 86850; 86900; 86901; 87340

== ENCOUNTER 2021-04-21 13:03 | Outpatient (CLI) | payer OTHER, SELFPAY ==
[2021-04-21] MEDS: Dextrose 5%-Lactated Ringers 1,000 ML 999 ML IV (13:13)
[2021-04-21 13:16] VITALS: BP 99/56; PULSE 97; RESP 16; TEMP 36.8; O2SAT 97
[2021-04-21] MEDS: Ondansetron 4 MG/2 ML Vial IV (13:24)
[2021-04-21] MEDS: 0.9% NaCl Peripheral Flush Adult/Peds IV (13:26)
[2021-04-21 14:25] VITALS: BP 92/57; PULSE 89; RESP 16; O2SAT 100
== END 2021-04-21 23:59 | disposition home or self-care (01) ==
LOC: MEDOUTP 13:03
PROVIDERS: PCP Family Medicine; Referring Provider Nurse Practitioner Women's Health; Visit Provider Nurse Practitioner Women's Health
DX: E86.0 Dehydration (principal)
CPT/HCPCS: 96374; 96360; A4216; J2405

== ENCOUNTER 2021-05-05 11:41 | Outpatient (CLI) | payer OTHER, SELFPAY ==
--- NOTE | 2021-05-05 11:46 | US_ITS ---
STUDY: SECOND AND THIRD TRIMESTER OBSTETRICAL ULTRASOUND REASON FOR EXAM: Female, 20 years old anatomy LMP: The established LMP 12/13/2020. Gestational age 20 weeks 3 days. TECHNIQUE: Transabdominal and Transvaginal TECHNICAL QUALITY: Adequate. PRIOR ULTRASOUND: None. FINDINGS: There is a single intrauterine fetus. The fetus is in a cephalic presentation. There is demonstrated cardiac activity with a heart rate of 131 bpm. There is a normal amniotic fluid volume. The largest amniotic fluid pocket measures 5.8 cm. The amniotic fluid index (VANITA) is within normal limits. The placenta is anterior in location and is not low lying. There are Grade 0 placental changes. The cervix measures 3.7 cm in length. Cervical os is closed. Adnexa visualized. BIOMETRY: BPD: 4.6 cm: 9 weeks, 6 days HC: 17.8 cm: 20 weeks, 1 days AC: 15.6 cm: 20 weeks, 5 days FL: 3.1 cm: 19 weeks, 4 days FL/BPD is slightly low measuring 78.1. The other 4 calculated biometric ratios are within normal limits. age by current US: 19 weeks, 6 days. MARCELO by current US: 09/23/2021. Estimated weight: 342 grams, +/- 51 grams, 36 %. Age by LMP: 20 weeks, 3 days. MARCELO by LMP: 09/19/2021. ANATOMY: Gender: Male from the images provided Lateral ventricles, choroid plexus, cerebellum, cisterna magna, face nose and lips, four-chamber heart, diaphragm, stomach, abdominal wall, cord insertion, three-vessel cord, kidneys, bladder, cervical, thoracic and lumbar spine, sacrum, upper and lower extremities were visualized. Bilateral choroid cysts measuring 0.6 cm on the right and 0.6 cm on the left. Bilateral renal pelvis dilatation measuring 0.2 cm. As per real estate photographer worksheet velamentous cord insertion. US/OB Anatomy Scan IMPRESSION: Single living intrauterine gestation with estimated gestational age by ultrasound of 19 weeks 6 days. Estimated date of delivery September 23, 2021. Bilateral choroid cysts. Bilateral renal pelvis dilatation. Velamentous cord insertion. Electronically Signed: Facundo Magana MD at 5:07 EDT Reading Location ID and State: [id number] / , Service support ,
== END 2021-05-05 23:59 | disposition home or self-care (01) ==
PROVIDERS: PCP Family Medicine; Referring Provider Obstetrics & Gynecology; Visit Provider Obstetrics & Gynecology
DX: Z34.80 Encounter for supervision of other normal pregnancy, unspecified trimester (principal)
CPT/HCPCS: 76805; 76817

== ENCOUNTER 2021-05-19 23:15 | Outpatient (CLI) | payer OTHER, SELFPAY ==
[2021-05-19 23:23] VITALS: BMI 21.8
[2021-05-19 23:38] VITALS: PULSE 72; O2SAT 98
[2021-05-19 23:39] VITALS: TEMP 36.6
[2021-05-19 23:40] VITALS: BP 107/58; PULSE 72
[2021-05-19 23:55] LABS: Glucose, Dipstick Normal (Normal); Ketone-Dipstick Negative (Negative); Leukocyte Esterase-Dipstick Negative /ul (Negative); Nitrite-Dipstick Negative (Negative); Occult Blood-Urine 150 /ul (Negative); Protein-Dipstick Negative (Negative); Urine Bilirubin Dipstick Negative (Negative); Urine Urobilinogen Normal (Normal); Urine pH 6.5 (5.0 - 8.0)
[2021-05-20 00:06] LABS: Color, Urine Yellow (Yellow); Urine Clarity Clear (Clear)
--- NOTE | 2021-06-06 08:41 | OB.TRI.PN ---
Progress Notes Date of Service: 05/19/21 Progress Note: seen for pelvic pressure, fht present, no regular ctx, cervix not significantly dilated, reassurance given, ua and culture sent fu as scheduled. Laboratory Studies: Laboratory Tests 05/19/21 Range/Units 23:40 Urine Color Yellow (Yellow) Urine Clarity Clear (Clear) Urine pH 6.5 (5.0 - 8.0) Ur Specific [place] 1.020 (1.002-1.030) Urine Protein Negative (Negative) mg/dl Urine Glucose (UA) Normal (Normal) mg/dl Urine Ketones Negative (Negative) mg/dl Urine Occult Blood 150 H (Negative) /ul Urine Nitrite Negative (Negative) Urine Bilirubin Negative (Negative) mg/dL Urine Urobilinogen Normal (Normal) mg/dl Ur Leukocyte Esterase Negative (Negative) /ul Assessment & Plan (1) Pelvic pressure in female:
== END 2021-05-20 00:15 | disposition home or self-care (01) ==
LOC: WPOUT 23:23 → WP 23:23
PROVIDERS: PCP Family Medicine; Visit Provider Obstetrics & Gynecology
DX: O26.899 Other specified pregnancy related conditions, unspecified trimester (principal); Z3A.00 Weeks of gestation of pregnancy not specified
CPT/HCPCS: 59025; 59050; 81002; 87086; 87088; 99218; G0378

== ENCOUNTER 2021-05-30 12:14 | Outpatient (CLI) | payer OTHER, SELFPAY ==
--- NOTE | 2021-05-30 12:16 | US_ITS ---
STUDY: SECOND AND THIRD TRIMESTER OBSTETRICAL ULTRASOUND - LIMITED REASON FOR EXAM: Female, 21 years old anatomy US follow up -- CORD INSERTION -- BILAT CHOROID CYSTS -- FULL RENAL PELVIS LMP: 12/13/2020 PRIOR ULTRASOUND: Comparison is made with prior study 05/05/2021. TECHNIQUE: Transabdominal TECHNICAL QUALITY: Adequate. FINDINGS: There is a single intrauterine fetus. The fetus is in a cephalic presentation. There is demonstrated cardiac activity with a heart rate of 149 bpm. 4.17 The largest amniotic fluid pocket measures 4.17cm. The amniotic fluid index (VANITA) is 13.26 cm. The placenta is anterior in location and is not low lying. There are Grade 1 placental changes. The cervix measures 3.5 cm in length. BIOMETRY: Age by LMP: 24 weeks, 0 days. MARCELO by LMP: 09/19/2021. The cord insertion is at the edge of the placenta. It is velamentous . Once again, small bilateral choroid plexus cysts are seen. They both measure 6 mm. Minimal fullness of the renal pelves. US/OB Limited (No Biometrics) IMPRESSION: Velamentous insertion of the umbilical cord on the placenta. 6 mm choroid plexuses cysts bilaterally Fullness of the renal pelves. Electronically Signed: Helder Paulino MD at 11:13 EDT ,
== END 2021-05-30 23:59 | disposition home or self-care (01) ==
LOC: US 12:15
PROVIDERS: PCP Family Medicine; Referring Provider Obstetrics & Gynecology; Visit Provider Obstetrics & Gynecology
DX: Z34.92 Encounter for supervision of normal pregnancy, unspecified, second trimester (principal); Z3A.24 24 weeks gestation of pregnancy
CPT/HCPCS: 76815

== ENCOUNTER → 2021-06-26 | Outpatient (CLI) | payer OTHER, SELFPAY ==
[2021-06-26 11:24] LABS: Absolute Lymphocyte Count 1.51 X10^3/uL (0.83-4.51); Absolute Neutrophil Count 6.8 X10^3/uL (2.0-7.7); Basophil# 0.06 X10^3/uL; Basophil% 0.6 % (0-1); Eosinophil# 0.29 X10^3/uL; Eosinophils% 3.1 % (0-5); Hematocrit 36.3 % (37-47); Hemoglobin 12.5 g/dL (12.0-15.0); Lymphocyte # 1.51 X10^3/ul (0.83-4.51); Lymphocyte % 16.3 % (19-41); Mean Corp Hgb Conc 34.4 g/dL (32-36); Mean Corpuscular Hgb 31.7 pg (27.0-32.0); Mean Corpuscular Volume 92.1 fL (81-99); Mean Platelet Vol. 9.7 fl (6.2-12.0); Monocyte# 0.58 X10^3/uL; Monocyte% 6.3 % (0-10); NRBC Flagged by Analyzer 0 % (0-5); Neutrophil % 73.4 % (47-70); Platelet Count 229 K/mm3 (150-450); RBC Distribution Width CV 12.7 % (11.6-14.6); RBC Distribution Width SD 42.3 fl (35.1-43.9); Red Blood Count 3.94 M/mm3 (4.2-5.4); White Blood Count 9.3 K/mm3 (4.4-11.0)
[2021-06-26 11:41] LABS: Glucose Challenge Gest 1H 50g 91 mg/dL (70-140)
== END | disposition home or self-care (01) ==
LOC: PAVLAB 11:08
PROVIDERS: PCP Family Medicine; Referring Provider Obstetrics & Gynecology; Visit Provider Obstetrics & Gynecology
DX: Z34.80 Encounter for supervision of other normal pregnancy, unspecified trimester (principal)
CPT/HCPCS: 36415; 82950; 85025

== ENCOUNTER → 2021-07-25 | Outpatient (CLI) | payer OTHER, SELFPAY ==
[2021-08-04 11:26] LABS: Dilute Prothrombin Time (dPT) 29.7 sec (0.0-47.6); Dilute Russell Viper Venom 32.4 sec (0.0-47.0); PTT-LA 35.3 sec (0.0-51.9); Thrombin Time 15.8 sec (0.0-23.0); dPT Confirm Ratio 1.17 Ratio (0.00-1.34)
[2021-08-04 18:02] LABS: Interpretation Comment: (.)
== END | disposition home or self-care (01) ==
LOC: LAB 15:11
PROVIDERS: PCP Family Medicine; Visit Provider Obstetrics & Gynecology
DX: N96 Recurrent pregnancy loss (principal)
CPT/HCPCS: 36415; 86146; 86147

== ENCOUNTER → 2021-07-30 | Outpatient (CLI) | payer OTHER, SELFPAY | END | disposition home or self-care (01) | PROVIDERS: PCP Family Medicine; Referring Provider Obstetrics & Gynecology; Visit Provider Obstetrics & Gynecology | DX: Z00.00 Encounter for general adult medical examination without abnormal findings (principal) ==

== ENCOUNTER → 2021-08-22 | Outpatient (CLI) | payer OTHER, SELFPAY | END | disposition home or self-care (01) | PROVIDERS: PCP Family Medicine; Referring Provider Obstetrics & Gynecology; Visit Provider Obstetrics & Gynecology | DX: O09.90 Supervision of high risk pregnancy, unspecified, unspecified trimester (principal) | CPT/HCPCS: 87081 ==

== ENCOUNTER 2021-09-07 00:02 | Inpatient (IN) | payer OTHER, SELFPAY ==
[2021-09-07] VITALS (45 sets, daily range): BP systolic 86–127; BP diastolic 51–78; PULSE 63–156; RESP 14–16; TEMP 36.2–36.7; O2SAT 81–99; BMI 24.3
[2021-09-07] MEDS: Lactated Ringers 1,000 ML 200 ML IV (00:10)
[2021-09-07] MEDS: LACTATED RINGERS 500 ML 999 ML IV (00:25)
[2021-09-07 00:27] LABS: Absolute Lymphocyte Count 2.03 X10^3/uL (0.83-4.51); Absolute Neutrophil Count 7.1 X10^3/uL (2.0-7.7); Basophil# 0.03 X10^3/uL; Basophil% 0.3 % (0-1); Eosinophil# 0.12 X10^3/uL; Eosinophils% 1.2 % (0-5); Hematocrit 33.9 % (37-47); Hemoglobin 11.6 g/dL (12.0-15.0); Lymphocyte # 2.03 X10^3/ul (0.83-4.51); Lymphocyte % 20.2 % (19-41); Mean Corp Hgb Conc 34.2 g/dL (32-36); Mean Corpuscular Hgb 31.4 pg (27.0-32.0); Mean Corpuscular Volume 91.6 fL (81-99); Mean Platelet Vol. 9.9 fl (6.2-12.0); Monocyte# 0.74 X10^3/uL; Monocyte% 7.3 % (0-10); NRBC Flagged by Analyzer 0 % (0-5); Neutrophil # 7.09 X10^3/uL (2.7-7.7); Neutrophil % 70.4 % (47-70); Platelet Count 237 K/mm3 (150-450); RBC Distribution Width CV 12.5 % (11.6-14.6); RBC Distribution Width SD 41.2 fl (35.1-43.9); White Blood Count 10.1 K/mm3 (4.4-11.0)
[2021-09-07 00:35] LABS: ROM Internal Control Test YES-OK TO RESULT pt. (Internal QC)
[2021-09-07 00:36] LABS: ROM Patient Test POSITIVE (Negative)
[2021-09-07] MEDS: Mag Hydrox/Al Hydrox/Simeth 30 ML UDC PO (00:38)
--- NOTE | 2021-09-07 00:59 | HP.PCM.OB_ITS ---
HPI - General General Date of Admission: 09/07/21 Date of Service: 09/07/21 Chief Complaint: labor HPI Narrative KATY TORRES, is a 21 y/o @ 38 weeks 2 days who presents to L&D with rupture of membranes and active labor. She denies decreased movement but has some bloody show Maternal Data Information MARCELO Calculator Estimated Delivery Date Method Current WG Current Estimate 09/19/21 LMP (Certain) 38w 2d Other Estimates 09/17/21 Ultrasound #1 38w 4d Final MARCELO: 09/19/21 Final MARCELO Source: US <20 weeks PFSH PFS Medical History Anal fissure Blood in stool Congenital dilated renal pelvis Hemorrhoid Incomplete PVCs (premature ventricular contractions) Threatened Velamentous insertion of umbilical cord Home Medications prenat.vits,lj,wra-rblh-otmpk 1 tab PO DAILY 07/17/20 [History Last Taken 09/06/21 20:00] aspirin 81 mg tablet 81 mg PO DAILY hx of miscarriage 04/21/21 [History Last Taken 09/06/21 20:00] docosahexaenoic acid 200 mg capsule (Algal [place]-3 DHA) mg PO 05/30/21 [History Last Taken Unknown] sertraline 50 mg tablet (Zoloft) 50 mg PO DAILY 09/07/21 [History Last Taken 09/06/21 20:00] Allergy/AdvReac Type Severity Reaction Status Date / Time No Known Allergies Allergy Verified 09/05/21 10:41 Family History Mother Colitis Surgical History H/O dilation and curettage No pertinent past surgical history Social History household members: spouse and children number of children: 2 current occupational status: unemployed Smoking Status: Never smoker alcohol intake: never substance use type: does not use caffeine: No what type of physical activity do you participate in: none seatbelt use: always additional social history: patient works at [employer], 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 Date Name GA/Weeks Outcome Route Bth Weight Gen Labor Lgth Anesthesia Del Locatn Provider FOB 09/13/17 Mark 39 live - full term 7lbs 5oz Male 9 hours epidural [facility] 05/25/19 Moiz 38 live - full term 6# 9oz Male [address] [facility] Dr. Keagan Benavides Delivery Date: 05/25/19 Last Updated by: Tory Segundo REFRESH TECHNICIAN, REFRESH TECHNICIAN-C IUGR Visit Details Expected Delivery Route/Plan Labor Preferences- CB/BF classes: [] labor support person: [] labor intervention preferences: [] pain management options preferred: [] cut cord/dad catch: [] : [] PP control planned: [] discussed possible routes of delivery and associated risks: [] special requests: [] Plans Covid status: [] Flu vaccine: [] Tdap vaccine: [] Rhogam: [] LARC form signed: [] Problem list reviewed and updated with the most current plan of care details and appropriate orders placed. Relevant counseling for the gestational age provided. Continue routine care and follow up unless otherwise noted in visit notes/problem list details OB Flowsheet Initial Weight: Not Recorded Date -?-?-?-?-?-?-?-?-?-?-?-?- EGA Weight BP Urine Prot -?-?-?-?-?-?-?-?-?-?-?-?- Glucose FHR FuHt Pres Dilation -?-?-?-?-?-?-?-?-?-?-?-?- Effaced St Visit Note 02/13/21 -?-?-?-?-?-?-?-?-?-?-?-?- 8w 6d 114 lb 120/70 -?-?-?-?-?-?-?-?-?-?-?-?- 170 -?-?-?-?-?-?-?-?-?-?-?-?- JV- CRL consiste nt with LMP 02/28/21 -?-?-?-?-?-?-?-?-?-?-?-?- 11w 0d 115 lb 6 oz 100/70 Nega tive -?-?-?-?-?-?-?-?-?-?-?-?- Negative 153 -?-?-?-?-?-?-?-?-?-?-?-?- JV- no vaginal b leeding or cramping. pt is using the progesterone cream up to 16 weeks. no complaints. nausea is well controlled on medication. 04/01/21 -?-?-?-?-?-?-?-?-?-?-?-?- 15w 4d 117 lb 2 oz 90/58 Nega tive -?-?-?-?-?-?-?-?-?-?-?-?- Negative 150 -?-?-?-?-?-?-?-?-?-?-?-?- JV- no lof, vagi nal bleeding, or cramping. Pt has an anatomy scan april 26. nausea is improving but not gone. pt declines further medication. 05/01/21 -?-?-?-?-?-?-?-?-?-?-?-?- 19w 6d 119 lb 2 oz 110/72 Nega tive -?-?-?-?-?-?-?-?-?-?-?-?- Negative 154 -?-?-?-?-?-?-?-?-?-?-?-?- JV- no lof, vagi nal bleeding or cramping. anatomy scan wednesday05/23/21 -?-?-?-?-?-?-?-?-?-?-?-?- 23w 0d 122 lb 2 oz 114/70 Nega tive -?-?-?-?-?-?-?-?-?-?-?-?- Negative 150 -?-?-?-?-?-?-?-?-?-?-?-?- JV- no lof ,vagi nal bleeding or dec fm. velamentous insertion, choroid plexus cysts, an mild pyelectasis. for rpt scan next month 05/30/21 -?-?-?-?-?-?-?--?-?-?-?-?- 24w 0d 121 lb 94/60 Negative -?-?-?-?-?-?-?-?-?-?-?-?- Negative 150 -?-?-?-?-?-?-?-?-?-?-?-?- SM- no vb lof go od fm no regular ctx 06/26/21 -?-?-?-?-?-?-?-?-?-?-?-?- 27w 6d 126 lb 8 oz 96/54 Nega tive -?-?-?-?-?-?-?-?-?-?-?-?- Negative 134 27 -?-?-?-?-?-?-?-?-?-?-?-?- JV- follow up ul trasound done today was normal GCT is pending, 07/10/21 -?-?-?-?-?-?-?-?-?-?-?-?- 29w 6d 130 lb 6 oz 104/66 Nega tive -?-?-?-?-?-?-?--?-?-?-?-?- Negative 124 29 -?-?-?-?-?-?-?-?-?-?-?-?- JV- pt has instr uctions for weekly nsts starting 32 weeks. no lof, vaginal bleeding, or cramping. 07/25/21 -?-?-?-?-?-?-?-?-?-?-?-?- 32w 0d 134 lb 104/62 -?-?-?-?-?-?-?-?-?-?-?-?- 130 -?-?-?-?-?-?-?-?-?-?-?-?- SM- no vb lof go od fm no regular ctx 07/30/21 -?-?-?-?-?-?-?-?-?-?-?-?- 32w 5d 134 lb 8 oz 90/58 Nega tive -?-?-?-?-?-?-?-?-?-?-?-?- Negative 140 -?-?-?-?-?--?-?-?-?-?-?-?- JV- nst reactive . no complaints today 08/08/21 -?-?-?-?-?-?-?-?-?-?-?-?- 34w 0d 137 lb 2 oz 100/70 Nega tive -?-?-?-?-?-?-?-?-?-?-?-?- Negative 120 -?-?-?-?-?-?-?-?-?-?-?-?- JV- no lof, vagi nal bleeding, or dec fm. growth 50th% on 07/25, next scan scheduled for 08/2108/22/21 -?-?-?-?-?--?-?-?-?-?-?-?- 36w 0d 139 lb 2 oz 110/70 Nega tive -?-?-?-?-?-?-?-?-?-?-?-?- Negative 130 -?-?-?-?-?-?-?-?-?-?-?-?- SM- no vb lof go od fm no regular ctx 08/29/21 -?-?-?-?-?-?-?-?-?-?-?-?- 37w 0d 140 lb 118/70 Negative -?-?-?-?-?-?-?-?-?-?-?-?- Negative 130 38 -?-?-?-?-?-?-?-?-?-?--?-?- SM- no vb lof go od fm no regular ctx 09/05/21 -?-?-?-?-?-?-?-?-?-?-?-?- 38w 0d 139 lb 100/60 Negative -?-?-?-?-?-?-?-?-?-?-?-?- Negative 135 39 -?-?-?-?-?-?-?-?-?-?-?-?- sm- no vb lof go od fm no regular ctx NST FHR Rate Baby A Baseline: 135 Variability:: Moderate Accelerations:: 15 x 15 Decelerations:: None NST Reactive:: Yes FHR Category:: Category I ROS Constitutional Constitutional: Denies change in weight, fatigue, fever(s), headache(s), poor appetite or weakness Eyes Eyes: Denies blurry vision, change in vision, seeing flashes or spots in vision ENT HEENT: Denies dizziness, headache(s), loss taste/smell or sore throat Cardiovascular Cardiovascular: Denies chest pain, dizziness, dyspnea, irregular heart rhythm, leg edema, palpitations, rapid heart rate or vomiting Respiratory/Chest Respiratory/Chest: Denies chest tightness, cough, dyspnea or breast pain Gastrointestinal Gastrointestinal: Denies abdominal pain, anorexia, constipation, cramping, diarrhea, hemorrhoids, vomiting or weight changes Genitourinary Genitourinary: Denies dysuria, flank pain, genital lesions, genital pain, urinary frequency or urinary urgency Musculoskeletal Musculoskeletal: Denies back pain, difficulty walking, joint pain, limited range of motion, muscle cramps or numbness Integumentary Integumentary: Denies lesions or unusual bruising Neurologic Neurologic: Denies abnormal movements, abnormal speech, dizziness, numbness, seizure-like activity or syncope Psychiatric Psychiatric: Denies anxiety, behavioral changes, change in appetite, change in libido, cognitive impairment, confusion, depression, difficulty concentrating, hallucinations or suicidal thoughts Endocrine Endocrinology: Denies excessive sweating, polydipsia or polyuria Hematologic/Lymphatic Hematologic/Lymphatic: Denies easy bleeding, easy bruising or lymphadenopathy Allergic/Immunologic Allergic/Immunologic: Denies itchy eyes, lip swelling, seasonal rhinorrhea, rhinitis, throat swelling, tongue swelling, eczemia, wheezing or asthma Vital Signs Vital Signs Vital Signs: 09/07/21 00:05 09/07/21 00:05 09/07/21 00:05 Temperature Temperature Source Pulse Rate 80 Blood Pressure 118/74 BP Systolic 118 BP Diastolic 74 Pulse Ox 98 09/07/21 00:05 09/07/21 00:05 09/07/21 00:57 Temperature 98.0 F Temperature Source Temporal Pulse Rate 156 H Blood Pressure BP Systolic BP Diastolic Pulse Ox 09/07/21 00:57 09/07/21 00:57 09/07/21 00:57 Temperature Temperature Source Pulse Rate 73 Blood Pressure BP Systolic BP Diastolic Pulse Ox 81 99 Weight Weight: 137 lb 2 oz Body Mass Index (BMI) 24.3 Physical Exam Const alert, oriented x3, no apparent distress and healthy appearing General Appearance: cooperative; Negative for anxious HEENT normocephalic Face and Sinus: normal facial exam Eyes EOMs intact bilaterally and no scleral icterus General Eye: normal appearance of both eyes Neck full ROM and supple Lymph Lymphatic: no lymphadenopathy noted Chest Chest: abnormal inspection of the chest Resp normal respiratory effort Effort and Inspection: able to speak in complete sentences Cardio regular rate GI soft to palpation and non-tender Inspection: gravid Palpation: soft; Negative for tender external exam normal Speculum Exam - Cervix: other cx: /bulging membrane forebag Amniotic Fluid: ROM+plus positive + Back/Spine no CVA tenderness Extremity normal to inspection, full ROM and no clubbing, cyanosis or edema General Extremity: Negative for calf tenderness or edema Skin Lesions: no lesions Rashes: no rashes Psych mental status grossly normal Labs Labs Labs: Blood Type B POSITIVE Antibody Screen NEGATIVE Hct 33.9 % (37-47) L Hgb 11.6 g/dL (12.0-15.0) L Obstetrics US Syphilis Total Ab Non-reactive Rubella IgG Antibody Reactive (Nonreactive) Hep Bs Antigen Non-Reactive (Nonreactive) Chlamydia DNA (BERNARDA) Negative (Negative) Neisseria gonorrhoeae DNA (BERNARDA) Negative (Negative) HIV 1&2 Antibody Non-Reactive (Nonreactive) Glucose 1 Hr 50 gm 91 mg/dL (70-140) Group B Strep DNA Negative (Negative) Rhogam given: No Miscellaneous Test RL Assessment & Plan (1) Anxiety and depression: COMMENT: counseling, zoloft. (2) : QUALIFIERS: Weeks of gestation: 38 weeks Qualified Code(s): Z3A.38 - 38 weeks gestation of COMMENT: NIPT low risk, GBS Negative (3) IUGR (intrauterine growth restriction) in prior , : COMMENT: growth scans 32 and 36 weeks 6/3 nl growth (4) H/O miscarriage, currently : COMMENT: taking vaginal progesterone 400mg bid until 16 weeks (5) Supervision of high-risk : COMMENT: PRR MARCELO: 09/19/21 Boy PC: Moiz Flores Spouse: Kennedy (6) Polyhydramnios: COMMENT: weekly BPP with MFM (7) Velamentous insertion of umbilical cord: COMMENT: repeat US @ 4 wks-NL growth 06/26. testing x1 week daily kick counts starting at 32 weeks (8) Congenital dilated renal pelvis: COMMENT: bilateral and persistent after 24 weeks. consulting MFM for recommendations and repeat scan at 28 weeks PLAN: Plan Patient presents IAL, plan expectant management for , pitocin/AROM PRN if needed. Pain management: plans epidural. GBS negative . Management of any complications: none I have reviewed the [facility] and made any clinically relevant updates.
--- NOTE | 2021-09-07 01:03 | PCM.DC ---
Discharge Instructions Diet Discharge Diet: No restrictions Activity Discharge Activity: Return to Normal Activity, May Not Drive (while taking narcotic pain medications.) and May Shower May resume sexual activity in: 4-6 weeks Dressing / Incision Call your doctor if your incision/area has: Continuous Slow Oozing, Sudden Increased Bleeding, Increased Pain/ Swelling, Increased Redness and Foul Smelling Discharge Follow Up Care Please Follow Up With: Alyx Champagne, When: Call [phone] to make an appointment with your doctor in 6 weeks. If you had elevated blood pressure or 4th degree laceration, you will need to be seen in 2 weeks. Test Results: Test results from this visit will be discussed in further detail at your follow-up appointment, if applicable. Discharge Plan Admission Admit Date/Time: 09/07/21 00:02 Primary Reason for Your Visit: vaginal delivery Attending Provider: Alyx Champagne Primary Care Provider: Ge Rodarte Discharge Orders/Prescriptions Prescriptions: New ibuprofen 600 mg tablet 600 mg PO Q6H PRN (Reason: pain) 7 Days Qty: 30 0RF Continued prenat.vits,lj,tos-fbae-rcirr Tablet 1 tab PO DAILY Algal [place]-3 DHA 200 mg capsule PO sertraline [Zoloft] 50 mg tablet 50 mg PO DAILY Discontinued aspirin 81 mg Tablet 81 mg PO DAILY Referrals / Follow Up: Ge Rodarte MD [Primary Care Provider] - Disposition Disposition (needs filled in before D/C Order can be placed): Home, Self Care
[2021-09-07] MEDS: fentaNYL-bupivacaine (epidural) 100 ML BAG EPIDURAL (01:32)
[2021-09-07] MEDS: Ondansetron 4 MG/2 ML Vial IV (02:36)
[2021-09-07] MEDS: 0.9% Saline Lock 10 ML Syringe IV (02:36)
[2021-09-07] MEDS: Oxytocin 30 units/NS 500 ml 30 UNITS/500 ML IV.SOLN 334 UNITS IV (03:13)
--- NOTE | 2021-09-07 03:17 | OP.PCM_ITS ---
Assessment & Plan (1) Anxiety and depression: COMMENT: counseling, garimaoft. (2) : QUALIFIERS: Weeks of gestation: 38 weeks Qualified Code(s): Z3A.38 - 38 weeks gestation of COMMENT: NIPT low risk, GBS Negative (3) IUGR (intrauterine growth restriction) in prior , : COMMENT: growth scans 32 and 36 weeks 6/3 nl growth (4) H/O miscarriage, currently : COMMENT: taking vaginal progesterone 400mg bid until 16 weeks (5) Supervision of high-risk : COMMENT: PRR MARCELO: 09/19/21 Boy PC: Moiz Flores Spouse: Kennedy (6) Polyhydramnios: COMMENT: weekly BPP with MFM (7) Velamentous insertion of umbilical cord: COMMENT: repeat US @ 4 wks-NL growth 06/26. testing x1 week daily kick counts starting at 32 weeks (8) Congenital dilated renal pelvis: COMMENT: bilateral and persistent after 24 weeks. consulting MFM for recommendations and repeat scan at 28 weeks Maternal Data Information MARCELO Calculator Estimated Delivery Date Method Current WG Current Estimate 09/19/21 LMP (Certain) 38w 2d Other Estimates 09/17/21 Ultrasound #1 38w 4d Final MARCELO: 08/20/21 Final MARCELO Source: US <20 weeks Vaginal Delivery Maternal Presentation Maternal Presentation: Active Labor Operative Information Date of Procedure: 09/07/21 Pre-Operative Diagnosis: @ 38 weeks 2 days in active labor Post-Operative Diagnosis: @ 38 weeks 2 days in active labor Surgery / Procedure Performed: Spontaneous Vaginal Delivery Type of Anesthesia: Epidural Drain: Duran to straight drain Estimated Blood Loss: 100cc Findings Description of Procedure: Patient began pushing and delivered the head in the ANASTASIIA presentation. The head was delivered atraumatically and a tight nuchal cord ?1 was identified and reduced over the infant's head. The anterior and posterior shoulders delivered without complication followed by the rest of the and the was placed on the maternal abdomen. Delayed cord clamping was employed for approximately 60 seconds. Cord was clamped and cut and gentle traction was applied to the cord and the placenta delivered spontaneously immediately following it was noted to be intact with three-vessel cord. The perineum and vagina were inspected and noted to have no laceration. EBL was 100 cc. Patient and infant tolerated delivery well. Presentation: Vertex and ANASTASIIA Amniotic Fluid Description: Clear Placental Delivery Description: Spontaneous Placenta Disposition: [facility] Cord Vessel Description: 3 Vessels Cord Entanglement: Around neck x 2, tight Nuchal Cord Compression: Without compression A Gender: Male (1 minute): 7 (5 minute): 9 Delayed Cord Clamping: Yes Post Vaginal Delivery Medications Given After Delivery: IV Pitocin Episiotomy Description: None Laceration: None Multi Select Codes Urinary/Genital Urinary/Genital CPT Codes: 01651 Vaginal Delivery [facility]
[2021-09-07] MEDS: Ibuprofen 600 MG Tablet PO ×2 (07:50→16:22)
[2021-09-07] MEDS: Hydrocortisone 2.5% Crm 1 APPLIC TOPICAL (08:32)
[2021-09-07] MEDS: Acetaminophen 500 MG Tablet 1000 MG PO (13:58)
[2021-09-07] MEDS: Sertraline 50 MG Tablet PO (22:06)
[2021-09-07] MEDS: Prenatal Vits Tablet 1 TABLET PO (22:06)
[2021-09-08] VITALS (9 sets, daily range): BP systolic 98–110; BP diastolic 56–62; PULSE 58–73; RESP 16–18; TEMP 36–36.4; O2SAT 94–97
[2021-09-08] MEDS: Ibuprofen 600 MG Tablet PO (03:49)
== END 2021-09-08 15:10 | disposition home or self-care (01) | DRG 807 ==
LOC: WPOUT 00:05 → WP 00:05
PROVIDERS: Admitting Provider Obstetrics & Gynecology; PCP Family Medicine; Visit Provider Obstetrics & Gynecology
DX: O36.5930 Maternal care for other known or suspected poor fetal growth, third trimester, not applicable or unspecified (principal); Z37.0 Single live birth; O40.3XX0 Polyhydramnios, third trimester, not applicable or unspecified; F32.A Depression, unspecified; F41.9 Anxiety disorder, unspecified; Z79.82 Long term (current) use of aspirin; Z3A.38 38 weeks gestation of pregnancy; O99.344 Other mental disorders complicating childbirth; O69.2XX0 Labor and delivery complicated by other cord entanglement, with compression, not applicable or unspecified; N28.89 Other specified disorders of kidney and ureter; Q63.8 Other specified congenital malformations of kidney; O99.893 Other specified diseases and conditions complicating puerperium
CPT/HCPCS: 59025; 59050; 84112; 85025; 86850; 86900; 86901; 87426; 99218; J7120; A4216; G0378; J2405

== ENCOUNTER → 2021-11-11 | Outpatient (CLI) | payer OTHER, SELFPAY ==
[2021-11-11 17:10] LABS: Absolute Lymphocyte Count 3.48 X10^3/uL (0.83-4.51); Absolute Neutrophil Count 5.3 X10^3/uL (2.0-7.7); Eosinophil# 0.72 X10^3/uL; Eosinophils% 6.9 % (0-5); Hematocrit 38.7 % (37-47); Hemoglobin 12.6 g/dL (12.0-15.0); Lymphocyte # 3.48 X10^3/ul (0.83-4.51); Lymphocyte % 33.2 % (19-41); Mean Corp Hgb Conc 32.6 g/dL (32-36); Mean Corpuscular Hgb 30.2 pg (27.0-32.0); Mean Corpuscular Volume 92.8 fL (81-99); Mean Platelet Vol. 9.6 fl (6.2-12.0); Monocyte# 0.84 X10^3/uL; NRBC Flagged by Analyzer 0 % (0-5); Neutrophil % 50.6 % (47-70); Platelet Count 301 K/mm3 (150-450); RBC Distribution Width CV 12.3 % (11.6-14.6); RBC Distribution Width SD 41.8 fl (35.1-43.9); Red Blood Count 4.17 M/mm3 (4.2-5.4); White Blood Count 10.5 K/mm3 (4.4-11.0)
== END | disposition home or self-care (01) ==
LOC: LAB 16:36
PROVIDERS: PCP Family Medicine; Referring Provider Obstetrics & Gynecology; Visit Provider Obstetrics & Gynecology
DX: Z01.818 Encounter for other preprocedural examination (principal)
CPT/HCPCS: 36415; 85025

== ENCOUNTER 2021-11-14 06:12 | Day surgery (SDC) | payer OTHER, SELFPAY ==
--- NOTE | 2021-11-13 16:22 | HP.PCM_ITS ---
History and Physical Date of Admission: 11/13/21 MR#: [id number] Acct: [id number] Name:KATY CARVALHO Rep #: [id number] : 2000 ? ? Provider: Dr. Alyx Champagne, Age/Sex:? 21/F ? ? Location: [facility] [place] Status: Signed Intake Vital Signs ? 09/07/2199:02 10/21/2214:00 Height 5 ft 3 inB 5 ft 3 in Intake Visit Reasons:?6wk pp, declined IUD discuss tubal Refrigeration Unit Repairer Required: No Is patient in pain?: No Allergies No Known Allergies Allergy (Verified 10/21/21 14:58) Medications docosahexaenoic acid 200 mg capsule (Algal [place]-3 DHA) mg PO 05/30/21 [History Confirmed 10/21/21] sertraline 50 mg tablet (Zoloft) 50 mg PO DAILY 09/07/21 [History Confirmed 10/21/21] lactobacillus combination no.4 3 billion cell capsule (Probiotic) 3,000 mmu cells PO DAILY 10/21/21 [History Confirmed 10/21/21] : Yes PFSH Medical History? Anal fissure Blood in stool Congenital dilated renal pelvis H/O miscarriage, currently Hemorrhoid Incomplete IUGR (intrauterine growth restriction) in prior , Polyhydramnios PVCs (premature ventricular contractions) Supervision of high-risk Threatened Velamentous insertion of umbilical cord Surgical History?(Updated 10/21/21 @ 15:[address] Alyx Champagne, DO) H/O dilation and curettage No pertinent past surgical history Status post vaginal delivery Family History? Mother Colitis Social History?(Updated 10/21/21 @ 14:58 by Tamera Lo) household members:? spouse and children number of children:? 3 current occupational status:? unemployed Smoking Status:? Never smoker alcohol intake:? never substance use type:? does not use caffeine:? No what type of physical activity do you participate in:? none seatbelt use:? always additional social history:? patient works at [employer], just finished school for [employer] [place] History ? ? ? 5 ? Elective abortions ? Hx Para ? ? ? 3 ? Spontaneous abortions ? ? ? 2 Hx # Term Pregnancies ? ? ? 3 ? Ectopic pregnancies ? Hx # Pregnancies ? Multiple births ? # of living children ? ? ? 3 Past Pregnancies Del. Date Name GA/Weeks Outcome Route Bth Weight Infant Gen Labor Lgth Anesthesia Del Locatn Provider FOB 09/13/17 Mark 39 live - full term 7lbs 5oz Male 9 hours epidural [facility] BERNICE ? 05/25/19 Moiz 38 live - full term 6# 9oz Male 4 hours epidural [facility] Dr. Keagan Benavides 09/07/21 [place] ? live - full term ? Male ? ? [facility] [place]de ? Delivery Date: 05/25/19? Last Updated by: Tory Segundo PROTOTYPE TECHNICIAN, PROTOTYPE TECHNICIAN-C ? ? ? IUGR Depression Screen PHQ-2/9 PHQ-2 Over the last 2 weeks, how often have you been bothered by any of the following problems? 1. Little interest or pleasure in doing things: not at all 2. Feeling down, depressed, or hopeless: not at all Total score: 0 Post HPI 6wk pp, declined IUD discuss tubal: Details: KATY TORRES is a 21 year old who presents for her post visit. Infant Feeding: Breast Menses resumed: No [place] since delivery: No Emotional Support: Yes Last Pap:: 2020 ROS Const Reports system reviewed and no additional complaints, except as documented GI Reports system reviewed and no additional complaints, except as documented, Denies bloating, Denies constipation, Denies nausea and Denies vomiting Reports system reviewed and no additional complaints, except as documented, Denies abnormal vaginal bleeding, Denies pelvic pain, Denies sexual dysfunction, Denies urinary incontinence, Denies urinary hesitancy, Denies urinary urgency and Denies vaginal discharge Skin/Breast Reports system reviewed and no additional complaints, except as documented and Reports as per HPI Psych Reports as per HPI Exam Const General: cooperative, healthy appearing, comfortable and no acute distress HENMT Head: normal to inspection Neck Neck: normal visual inspection and no lymphadenopathy Thyroid: thyroid normal Chest Breast inspection: normal inspection of the breasts and normal inspection of the axillae Breast palpation: normal palpation of the breasts and normal palpation of the axillae Resp Effort & Inspection: normal respiratory effort GI Inspection: normal to inspection Palpation: soft, no hepatosplenomegaly and nontender General: bladder normal to palpation External Female Exam: normal external appearance and normal appearance of the urethra Urethra: normal appearance of the urethra Speculum Exam - Vagina: normal appearance of the vagina and normal vaginal discharge Speculum Exam - Cervix: normal appearance of the cervix Bimanual Exam- Vagina & Uterus: normal bimanual exam, uterine size normal, bladder normal to palpation, uterine shape normal and non-tender Bimanual Exam- Adnexa, other: normal adnexae and normal Pelvic Support: normal Skin General: no rashes or lesions noted Coding Level of Care Code No Charge Diagnoses Status post vaginal delivery? Assessment and Plan Assessment and Plan (1) Status post vaginal delivery: ?Status:?Acute Plan Cervical cancer screening: up to date Contraceptive plans: wants tubal ligation -After discussing the patient's diagnosis and treatment plan options, patient wishes to proceed with surgical management.? I have discussed with the patient the risks, benefits, and alternatives of the procedure which include but are not limited to risks of anesthesia, bleeding, infection, possible damage to bowel, bladder, or surrounding vasculature which could lead to additional surgery to evaluate any complications.? Patient agrees to procedure and wishes to proceed.? ACOG/uptodate references given for additional information regarding procedure.? Complications: none Follow up for annual exams or sooner if indicated. UPDATE- I have seen the patient and performed any clinically relevant updates to the history and physical exam. Alyx Champagne, DO
[2021-11-14 06:36] VITALS: BP 107/67; PULSE 79; RESP 16; TEMP 37; O2SAT 99; BMI 22.2
[2021-11-14] MEDS: Lactated Ringers 1,000 ML 15 ML IV (06:44)
[2021-11-14 06:46] LABS: Internal QC Validated? YES +Cl - CLEAR BKGD; Pregnancy, Urine Negative Negative
--- NOTE | 2021-11-14 07:30 | FALS_PTH ---
PATIENT: KATY TORRES LOC: [facility] [place] U#:[id number] AGE/SX: ROOM: RE11/14/[address]: Dr. Alyx Champagne DO : 2000 BED: DIS: 11/14/2021 SPEC #: [id number] RECD: 11/14/21 11:08 STATUS: SHORTY SHASTA #: [id number] YOGESH: 11/14/21 07:[address]: Alyx Champagne DEPT: SURGICAL PATHOLOGY RECD BY: Roberto Tavares ENTERED: 11/14/21 12:07 SP TYPE: FALL TUBES OTHR DR: Dr. Julian Rodarte MD Tissues: Fallopian tube Procedures: Surgery Specimen Level II HEADER OPERATION: Laparoscopic salpingectomy PRE-OP DIAGNOSIS: Status post vaginal delivery TISSUE SUBMITTED: Bilateral fallopian tubes MICROSCOPIC DIAGNOSIS Bilateral fallopian tubes, salpingectomies: Complete sections of benign fallopian tubes with paratubal cyst. AM:angela 11/17/2021 MICROSCOPIC DESCRIPTION Slides are reviewed. GROSS DESCRIPTION Received in fixative is one container labeled with the patient's name and designated bilateral fallopian tubes. The specimen consists of bilateral fallopian tubes including fimbrial ends measuring 4.6 cm in length and 0.3 cm in diameter and 5 cm in length and 0.5 cm in diameter. The fallopian tubes are not identified as right or left. Sections reveal unremarkable cut surfaces. Drilling Rig Operator sections are submitted in two cassettes with each cassette containing one fallopian tube. / CORDELIA:angela 11/14/2021 TC:5 CPT: 81470 x2
--- NOTE | 2021-11-14 07:35 | DCINST_ITS ---
Discharge Instructions Diet Discharge Diet: No restrictions Activity Discharge Activity: Return to Normal Activity, May Not Drive (for two weeks or while taking narcotic pain medications.), May Shower and May Take a Tub Bath (in 7 days) May resume sexual activity in: 1 week Weight Bearing Status: Full weight bearing Dressing / Incision Call your doctor if you observe: Using more than 1 pad per hour, Shortness of breath, Chest pain and Uncontrolled pain Suture Line Care: Avoid Pulling/Pushing and Avoid Pinching/Bending Remove Dressing in: 1 week (if present) Cleanse incision/area with: Soap & Water and Keep Dressing Clean & Dry Follow Up Care Please Follow Up With: Alyx Champagne DO When: Call to make an appointment with your doctor for a follow up incision check in 1-2 weeks. Test Results: Test results from this visit will be discussed in further detail at your follow- up appointment, if applicable. Discharge Plan Admission Primary Reason for Your Visit: laparoscopic bilateral salpingectomy for sterilization Attending Provider: Alyx Champagne Primary Care Provider: Ge Rodarte Discharge Orders/Prescriptions Prescriptions: New ibuprofen 600 mg tablet 600 mg PO Q6H PRN (Reason: pain) 7 Days Qty: 28 0RF Rx Instructions: one tab every 6 hrs as needed for mild to moderate pain oxycodone-acetaminophen [Percocet] 5-325 mg tablet 1 tab PO Q4H PRN (Reason: pain) 7 Days Qty: 15 0RF Continued Algal [place]-3 DHA 200 mg capsule 200 mg PO DAILY Probiotic 3 billion cell capsule 3,000 mmu cells PO DAILY Rx Instructions: administer with a meal sertraline [Zoloft] 50 mg tablet 50 mg PO QHS [id number] 1 mg Tablet 1 tab PO DAILY Referrals / Follow Up: Ge Rodarte MD [Primary Care Provider] - Disposition Disposition (needs filled in before D/C Order can be placed): Home, Self Care
--- NOTE | 2021-11-14 08:12 | OP.PCM_ITS ---
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 Bladder was drained of clear urine and SCDs were on preoperatively. Uterus was sounded and a uterine manipulator was placed after dilating. Attention was then paid to the abdominal portion of the procedure and the umbilicus was elevated and injected with Marcaine and after a 5 mm incision was made and a 5 mm trocar was inserted into the abdomen under direct visualization using the laparoscope. Abdomen was insufflated with CO2 gas and a 5 mm optical trocar was placed under direct visualization. A left lower quadrant 5 mm port and a mini grasper suprapubically were placed under direct visualization. Uterus was well visualized and bilateral fallopian tubes identified and bilateral tubes were elevated and transecting across the mesosalpinx and the attachment to the uterine corpus bilaterally the tubes were removed without complication. Excellent hemostasis was noted. Fallopian tubes were removed through the lower port sites without complication. Liver and upper abdomen were visualized notably within normal limits and no other gross abnormalities were seen in the abdomen. All instruments removed from the abdomen after gas was desufflated. Port sites were closed with 3-0 Monocryl Steri's and op sites were applied. All instruments removed from the vagina and patient was awoken and taken recovery in stable condition. Procedure Start Time: 07:54 Procedure Stop Time: 08:09 Complications none Admit VTE Documentation VTE Present on Admission: Yes VTE Mechan Device Prophylaxis: SCD's VTE Pharm Prophylaxis ordered?: No Reason prophylaxis not ordered:: Treatment Not Indicated Multi Select Codes Urinary/Genital Urinary/Genital CPT Codes: 94618 Laproscopic BS/O
[2021-11-14 08:24] VITALS: BP 107/67; BP 108/64; PULSE 64; RESP 16; TEMP 36.2; O2SAT 98
[2021-11-14 08:30] VITALS: BP 106/72; BP 107/67; PULSE 63; RESP 16; O2SAT 98
[2021-11-14 08:45] VITALS: BP 107/67; BP 110/78; PULSE 62; RESP 15; O2SAT 99
[2021-11-14 08:57] VITALS: BP 105/72; BP 107/67; PULSE 58; RESP 16; TEMP 36.6; O2SAT 98
[2021-11-14 10:12] VITALS: BP 102/61; BP 107/67; PULSE 66; RESP 16; TEMP 36.6; O2SAT 99
== END 2021-11-14 10:24 | disposition home or self-care (01) ==
LOC: SDC 06:12 → AC 06:13
PROVIDERS: PCP Family Medicine; Referring Provider Obstetrics & Gynecology; Visit Provider Obstetrics & Gynecology
PROC: (CPT 58661; principal; 2021-11-14 07:15)
DX: Z30.2 Encounter for sterilization (principal); N83.8 Other noninflammatory disorders of ovary, fallopian tube and broad ligament
CPT/HCPCS: 58661; 00840; 81025; 88302; J7120; J2405

== ENCOUNTER → 2022-12-15 | Outpatient (CLI) | payer OTHER, SELFPAY ==
[2022-12-18 22:06] LABS: Chlamydia By Nucleic Acid AMP Negative (Negative); Gonococcus By Nucleic Acid AMP Negative (Negative)
== END | disposition home or self-care (01) ==
LOC: LABSPEC 15:43
PROVIDERS: PCP Family Medicine; Visit Provider Nurse Practitioner Women's Health
DX: N89.8 Other specified noninflammatory disorders of vagina (principal)
CPT/HCPCS: 87070; 87077; 87186; 87205; 87491; 87591

== ENCOUNTER → 2023-01-06 | Outpatient (CLI) | payer OTHER, SELFPAY | END | disposition home or self-care (01) | LOC: LABSPEC 11:03 | PROVIDERS: PCP Family Medicine; Referring Provider Nurse Practitioner Women's Health; Visit Provider Nurse Practitioner Women's Health | DX: N76.0 Acute vaginitis (principal) | CPT/HCPCS: 87070; 87077; 87186; 87205 ==

== ENCOUNTER → 2023-02-26 | Outpatient (CLI) | payer OTHER, SELFPAY ==
--- NOTE | 2023-02-26 09:02 | RAD_ITS ---
STUDY: X-RAY - RIGHT KNEE REASON FOR EXAM: Female, 22 years old. Right knee injury. TECHNIQUE: 4 views of the right knee. COMPARISON: None. FINDINGS: Normal visualized distal femur. Normal visualized proximal tibia and fibula. Normal proximal tibiofibular articulation. There is no demonstrated fracture. Normal medial femorotibial compartment. Normal lateral femorotibial compartment. Normal patellofemoral articulation. There is no demonstrated joint effusion. The soft tissue structures are unremarkable. RAD/Knee 4 or More Views IMPRESSION: Normal x-ray examination of the knee. Electronically Signed: Walter Dela Cruz MD at 9:26 EST ,
== END | disposition home or self-care (01) ==
LOC: MTRAD 08:55
PROVIDERS: PCP Family Medicine; Referring Provider Family Medicine; Visit Provider Family Medicine
DX: S89.91XA Unspecified injury of right lower leg, initial encounter (principal)
CPT/HCPCS: 73564

== ENCOUNTER → 2023-12-17 | Outpatient (CLI) | payer OTHER, SELFPAY ==
--- OUTSIDE RECORDS SUMMARY | 2023-12-17 17:13 | XMS RPT_ITS | CCD ---
Author Organization [facility] Care Team Providers Care Research Neuropsychologist Name Role Phone CLINTON LOVE Unavailable Unavailable CLINTON LOVE Unavailable Unavailable CLINTON LOVE Unavailable Unavailable PHYSICIAN, NOT RECORDED Primary Care Unavaila jackelyn ALVARENGA MD, EKTA Attending Unavailable LYLE AREVALO, EKTA Consulting Unavailable LYLE AREVALO, EKTA Admitting Unavailable Medications Current Medications Medication Drug Class(es) Dates Sig (Normalized) Sig (Original) acetaminophen 325 mg / HYDROcodone bitartrate 5 mg oral tablet (1 source) Opioid Agonist Start: 03-09-2022 End: 03-14-2022 [place] 325- 5 mg oral tablet Dose = 1 tab(s), Oral, q4h, PRN Pain, scale 1-6, X 5 day(s), # 12 tab(s), 0 Refill(s), Pharmacy: [id number], Acute post-operative pain, 160, cm, 03/09/22 9:22:00 EST, Height, 54.5 Start Date: 03/09/22 Stop Date: 03/14/22 Status: Ordered sertraline 50 mg oral tablet (1 source) Serotonin Reuptake Inhibitor Start: 03-09-2022 sertraline 50 mg oral tablet Dose : 50 mg = 1 tab(s), Oral, Daily, 0 Refill(s) Start Date: 03/09/22 Status: Ordered Problems Active Problems Problem Classification Problem Date Documented Date Episodic/Chronic Appendicitis and other appendiceal conditions (1 source) Appendicitis; Translations: [Unspecified appendicitis] Onset: 03-09-2022 Episodic Other nervous system disorders (1 source) Postoperative pain ; Translations: [Other acute postprocedural pain] Onset: 03-09-2022 Episodic Unclassified (1 source) Unknown / UNK(Unknown) Onset: 01-12-2017 Past or Other Problems Problem Classification Problem Date Documented Da te Episodic/Chronic Normal and/or delivery (1 source) Encounter for supervision of normal first , first trimester; Translations: [Encounter for supervision of normal first , first trimester] Onset: 02-09-2017 Episodic Results Test Name Value Interpretation Reference Range Facility Final Surgical Pathology Rep edmund 03-11-2022 Final Surgical Pathology Report . Pathology Reports Accession: Collected Date/Time: Received Date/Time: Pathologist: [id number] 03/09/2022 10:46 EST 03/10/2022 08:43 GASPER GUTIERREZ MD Final Surgical Pathology Report DIAGNOSIS: APPENDIX: - ACUTE APPENDICITIS AND SEROSITIS COMMENT: [facility] [id number] CLINICAL INFORMATION: Procedure: LAPAROSCOPIC APPENDECTOMY Preoperative diagnosis: APPENDICITIS Postoperative diagnosis: APPENDICITIS SPECIMEN: A APPENDIX GROSS DESCRIPTION: A. Received in formalin, labeled with the patients name, Case #[id number], and appendix , Dimensions-5.5 x 0.6 cm Serosal surface- fox-brown with focal areas of white-fox exudate Lumen-hemorrhage filled measuring up to 0.3 cm Wall thickness-0.2 cm. RS- 1 Dictated by WILFREDO NELSON MICROSCOPIC DESCRIPTION: The microscopic examination is performed, except in the case of Gross Only. Electronically Signed by Pathology Report verified by [facility] GASPER SANCHEZ Sign out Date: 03/11/2022 10:35 Performing Lab: [facility], [address] [place] [address] Pathology Dept Normal [facility] ([place]) .Auto Diffon 03-09-2022 Basophil, Absolute 0.2 10 3/mcL Normal 0.0-0.2 [facility] ([place]) Comment on above: Performed By: #### M DW, CBC, LIP, ANEU, CMP, GFR, ADIFF #### [address] [place], [place] [address] Basophils/100 WBC (Bld) 2.3 % Normal 0.0-2.5 [facility] ([place]) Comment on above: Performed By: #### M DW, CBC, LIP, ANEU, CMP, GFR, ADIFF #### [address] [place], [place] [address] Eosinophil, Absolute 0.6 10 3/mcL High 0.0-0.4 [facility] ([place]) Comment on above: Performed By: #### M DW, CBC, LIP, ANEU, CMP, GFR, ADIFF #### [address] [address] Eosinophils/100 WBC (Bld) 7.9 % High 0.0-7.0 [facility] ([place]) Comment on above: Performed By: #### M DW, CBC, LIP, ANEU, CMP, GFR, ADIFF #### [address] [address] Lymphocyte, Absolute 3.1 10 3/mcL Normal 0.8-3.9 [facility] ([place]) Comment on above: Performed By: #### M DW, CBC, LIP, ANEU, CMP, GFR, ADIFF #### [address] [address] Lymphocytes/100 WBC (Bld) 38.7 % Normal 10.0-50.0 [facility] ([place] Comment on above: Performed By: #### M DW, CBC, LIP, ANEU, CMP, GFR, ADIFF #### [address] [address] Monocyte, Absolute 0.6 10 3/mcL Normal 0.2-1.0 [facility] ([place]) Comment on above: Performed By: #### M DW, CBC, LIP, ANEU, CMP, GFR, ADIFF #### [address] [address] Monocytes/100 WBC (Bld) 7.4 % Normal 1.7-13.0 [facility] ([place] Comment on above: Performed By: #### M DW, CBC, LIP, ANEU, CMP, GFR, ADIFF #### [address] [address] Neutrophils/100 WBC (Bld) 43.7 % Normal 37.0-80.0 [facility] ([place] Comment on above: Performed By: #### M DW, CBC, LIP, ANEU, CMP, GFR, ADIFF #### [address] [place], [place] [address] .GFRon 03-09-2022 GFR Non- 96 ml/min/1.73sqm Normal [facility] ([place]) Comment on above: Result Comment: GFR Population mean for , Non- Americans Ages 20-29 = 116 mL/min/1.73 sq.m. Ages 30-39 = 107 mL/min/1.73 sq.m. Ages 40-49 = 99 mL/min/1.73 sq.m. Ages 50-59 = 93 mL/min/1.73 sq.m. Ages 60-69 = 85 mL/min/1.73 sq.m. Ages 70+ = 75 mL/min/1.73 sq.m. Chronic Kidney Disease: Less than 60 mL/min/1.73 square meters End Stage Renal Disease: Less than 15 mL/min/1.73 square meters Performed By: #### M DW, CBC, LIP, ANEU, CMP, GFR, ADIFF ####[facility] [place], [place] [address] GFR 116 ml/min/1.73sqm Normal [facility] ([place] Comment on above: Result Comment: GFR Population mean for , Non- Americans Ages 20-29 = 116 mL/min/1.73 sq.m. Ages 30-39 = 107 mL/min/1.73 sq.m. Ages 40-49 = 99 mL/min/1.73 sq.m. Ages 50-59 = 93 mL/min/1.73 sq.m. Ages 60-69 = 85 mL/min/1.73 sq.m. Ages 70+ = 75 mL/min/1.73 sq.m. Chronic Kidney Disease: Less than 60 mL/min/1.73 square meters End Stage Renal Disease: Less than 15 mL/min/1.73 square meters Performed By: #### M DW, CBC, LIP, ANEU, CMP, GFR, ADIFF ####[place] [address] [place], [place] [address] .MDWon 03-09-2022 Monocyte Distribution Width 15.84 Normal 0.00-20.00 [facility] ([place]) Comment on above: Result Comment: For ED adult patients suspected of sepsis, MDW<=20.0 does not rule out sepsis or risk of sepsis Performed By: #### M DW, CBC, LIP, ANEU, CMP, GFR, ADIFF #### [address] [address] .NEUABSon 03-09-2022 Neutrophil, Absolute 3.5 10 3/mcL Normal 2.9-6.2 [facility] ([place]) Comment on above: Performed By: #### M DW, CBC, LIP, ANEU, CMP, GFR, ADIFF #### [address] [address] .Urinalysis Microscopic (AO) on 03-09-2022 UA RBC None Seen Normal None Seen [facility] ([place]) Comment on above: Performed By: #### U A, UAMICAO, PREGU #### [place] [address] UA Squam Epithelial 0-5 Abnormal None Seen [facility] ([place]) Comment on above: Performed By: #### U A, UAMICAO, PREGU #### [place] [address] UA WBC 0-5 Abnormal None Seen [facility] ([place]) Comment on above: Performed By: #### U A, UAMICAO, PREGU #### [place] [address] APTTon 03-09-2022 aPTT Coag (Bld) [Time] 31.5 s Normal 24.1-34.9 [facility]) Comment on above: Result Comment: For Heparin anticoagulation therapy, the recommended therapeutic range is: 46.2-75.9 seconds (1.5 - 2.5 the normal plasma mean). Patients on heparin therapy may have an extreme result. Performed By: #### P RO, ANSG, APTT, ABOG ####[place] [address] Heparin dose (APTT) Unknown Normal [facility] ([place]) Comment on above: Performed By: #### P RO, ANSG, APTT, ABOG ####[address] [address] CBCon 03-09-2022 Erythrocyte distribution width (RBC) [Ratio] 12.6 % Normal 11.5-14.5 [facility] ([place]) Comment on above: Performed By: #### M DW, CBC, LIP, ANEU, CMP, GFR, ADIFF #### [place] [address] Hematocrit (Bld) [Volume fraction] 42.1 % Normal 37.0-47.0 [facility] ([place] Comment on above: Performed By: #### M DW, CBC, LIP, ANEU, CMP, GFR, ADIFF #### [place] [address] Hgb 14.4 G/dL Normal 12.0-16.0 [facility] ([place] Comment on above: Performed By: #### M DW, CBC, LIP, ANEU, CMP, GFR, ADIFF #### [place] [address] MCH (RBC) [Entitic mass] 30.5 pg Normal 27.0-31.2 [facility] ([place] Comment on above: Performed By: #### M DW, CBC, LIP, ANEU, CMP, GFR, ADIFF #### [address] [address] MCHC 34.2 G/dL Normal 33.0-37.0 [facility] ([place] Comment on above: Performed By: #### M DW, CBC, LIP, ANEU, CMP, GFR, ADIFF #### [address] [address] MCV (RBC) [Entitic vol] 89.1 fL Normal 80.0-94.0 [facility] ([place] Comment on above: Performed By: #### M DW, CBC, LIP, ANEU, CMP, GFR, ADIFF #### [place] [address] Platelet 281 10 3/mcL Normal 130-400 [facility] ([place] Comment on above: Performed By: #### M DW, CBC, LIP, ANEU, CMP, GFR, ADIFF #### [address] [address] Platelet mean volume (Bld) [Entitic vol] 7.3 fL Low 7.4-10.4 [facility] ([place] Comment on above: Performed By: #### M DW, CBC, LIP, ANEU, CMP, GFR, ADIFF #### [address] [address] RBC 4.72 10 6/mcL Normal 4.20-5.40 [facility] ([place] Comment on above: Performed By: #### M DW, CBC, LIP, ANEU, CMP, GFR, ADIFF #### [address] [address] WBC 8.1 10 3/mcL Normal 4.6-10.8 [facility] ([place] Comment on above: Performed By: #### M DW, CBC, LIP, ANEU, CMP, GFR, ADIFF #### [address] [address] CMPon 03-09-2022 Albumin Level 4.3 G/dL Normal 3.5-5.0 [facility] ([place] Comment on above: Performed By: #### M DW, CBC, LIP, ANEU, CMP, GFR, ADIFF ####[address] [place], [place] [address] Albumin/Globulin [Mass ratio] 1.3 {ratio} Normal 1.1-2.5 [facility] ([place] Comment on above: Performed By: #### M DW, CBC, LIP, ANEU, CMP, GFR, ADIFF ####[facility] [place], [place] [address] ALP [Catalytic activity/Vol] 78 U/L Normal 40-135 [facility] ([place] Comment on above: Performed By: #### M DW, CBC, LIP, ANEU, CMP, GFR, ADIFF ####[address] [place], [place] [address] ALT [Catalytic activity/Vol] 22 U/L Normal 14-59 [facility] ([place] Comment on above: Performed By: #### M DW, CBC, LIP, ANEU, CMP, GFR, ADIFF ####[address] [place], [place] [address] AST [Catalytic activity/Vol] 19 U/L Normal 10-40 [facility] ([place] Comment on above: Performed By: #### M DW, CBC, LIP, ANEU, CMP, GFR, ADIFF ####[address] [place], [place] [address] Bili Total 0.5 mg/dL Normal 0.2-1.0 [facility] ([place] Comment on above: Result Comment: Use of this assay is not recommended for patients undergoing treatment with eltrombopag due to the potential for falsely elevated results. Performed By: #### M DW, CBC, LIP, ANEU, CMP, GFR, ADIFF ####[address] [place], [place] [address] BUN/Creatinine Ratio 23 ratio Normal 7-27 [facility] ([place]) Comment on above: Performed By: #### M DW, CBC, LIP, ANEU, CMP, GFR, ADIFF ####[address] [place], [place] [address] Calcium [Mass/Vol] 9.1 mg/dL Normal 8.4-10.2 [facility] ([place]) Comment on above: Performed By: #### M DW, CBC, LIP, ANEU, CMP, GFR, ADIFF ####[address] [place], [place] [address] Chloride [Moles/Vol] 103 mmol/L Normal 98-107 [facility] ([place]) Comment on above: Performed By: #### M DW, CBC, LIP, ANEU, CMP, GFR, ADIFF ####[address] [place], [place] [address] CO2 [Moles/Vol] 29 mmol/L Normal 22-29 [facility] ([place] Comment on above: Performed By: #### M DW, CBC, LIP, ANEU, CMP, GFR, ADIFF ####[address] [place], [place] [address] Creatinine [Mass/Vol] 0.75 mg/dL Normal 0.55-1.02 [facility] ([place] Comment on above: Performed By: #### M DW, CBC, LIP, ANEU, CMP, GFR, ADIFF ####[address] [place], [place] [address] Electrolyte Balance 9.0 mEq/L Normal 4.0-15.0 [facility] ([place]) Comment on above: Performed By: #### M DW, CBC, LIP, ANEU, CMP, GFR, ADIFF ####[address] [place], [place] [address] Globulin 3.2 G/dL Normal [facility] ([place] Comment on above: Performed By: #### M DW, CBC, LIP, ANEU, CMP, GFR, ADIFF ####[address] [place], [place] [address] Glucose [Mass/Vol] 107 mg/dL High 70-105 [facility] ([place] Comment on above: Performed By: #### M DW, CBC, LIP, ANEU, CMP, GFR, ADIFF ####[address] [place], [place] [address] Potassium [Moles/Vol] 3.6 mmol/L Normal 3.5-5.1 [facility] ([place] Comment on above: Performed By: #### M DW, CBC, LIP, ANEU, CMP, GFR, ADIFF ####[address] [place], [place] [address] Sodium [Moles/Vol] 141 mmol/L Normal 136-145 [facility] ([place] Comment on above: Performed By: #### M DW, CBC, LIP, ANEU, CMP, GFR, ADIFF ####[address] [place], [place] [address] Total Protein 7.5 G/dL Normal 6.4-8.2 [facility] ([place] Comment on above: Performed By: #### M DW, CBC, LIP, ANEU, CMP, GFR, ADIFF ####[address] [place], [place] [address] Urea nitrogen [Mass/Vol] 17 mg/dL Normal 7-18 [facility] ([place] Comment on above: Performed By: #### M DW, CBC, LIP, ANEU, CMP, GFR, ADIFF ####[address] [place], [place] [address] CT ABD/PELVIS W/ IV CONTRAST ONLYon 03-09-2022 CT ABD/PELVIS W/ IV CONTRAST ONLY ORIGINAL EXAMINATION: CT OF THE ABDOMEN AND PELVIS WITH CONTRAST 03/09/2022 5:31 am TECHNIQUE: CT of the abdomen and pelvis was performed with the administration of intravenous contrast. Multiplanar reformatted images are provided for review. Automated exposure control, iterative reconstruction, and/or weight based adjustment of the mA/kV was utilized to reduce the radiation dose to as low as reasonably achievable. COMPARISON: None. HISTORY: ORDERING SYSTEM PROVIDED HISTORY: Reason for Exam: pain FINDINGS: Lower Chest: No acute findings. Organs: The liver, pancreas, spleen, adrenal glands, kidneys, and ureters show no sign of abnormality. GI/Bowel: The stomach and duodenum are unremarkable. In the distal small intestine there are several loops of fluid-filled small intestine without dilatation. These are mostly located in the pelvis. The appendix is mildly thickened (8 mm) and moderately inflamed. The appendix is identified in the right side of the pelvis posterior to the right external iliac vein (image 82 of series 2. No abscess or free intraperitoneal air is present. There is no obstruction or inflammation of the colon. Pelvis: Urinary bladder is partly distended. Uterus and adnexal structures are unremarkable. There is a small amount of free fluid in the pelvis. Peritoneum/Retroperitone um: Abdominal aorta is nonaneurysmal. No retroperitoneal lymph node enlargement is present. Bones/Soft Tissues: No acute findings. IMPRESSION: Acute appendicitis. There is associated ileus in the distal small intestine. No abscess or free intraperitoneal air. Interpreted by: Sanket Cuevas MD Preliminary Report By: Sanket Cuevas MD Electronically signed By Sanket Cuevas MD Dictated Date: 03/09/2022 5:34:08 AM Prelim Date: 03/09/2022 5:43:39 AM Sign Date: 03/09/2022 5:43:39 AM Ordering Provider: ADRIANA PACHECO [facility] ([place]) Gel ABOon 03-09-2022 ABO/Rh Interp Positive Invalid Interpretation Code [facility] ([place] Comment on above: Performed By: #### P RO, ANSG, APTT, ABOG ####[address] [place], [place] [address] Gel ABSon 03-09-2022 Antibody Screen Gel Negative Normal [facility] ([place]) Comment on above: Performed By: #### P RO, ANSG, APTT, ABOG ####[address] [place], [place] [address] LABORATORYOrdered By: Maria Del Carmen Vaughan on 03-09-2022 ABO/Rh Interp Positive Invalid Interpretation Code AO BB SS Antibody Screen Gel Negative ABSC (03/09/22 6:31 AM) Invalid Interpretation Code AO BB SS LABORATORYOrdered By: Amadou Yi on 03-09-2022 aPTT Coag (Bld) [Time] 31.5 s Invalid Interpretation Code 24.1 - 34.9 seconds AO Coag SS Heparin dose (APTT) Unknown (03/09/22 6:31 AM) Invalid Interpretation Code AO Coag SS INR Coag (PPP) [Relative time] 1.1 {INR} Invalid Interpretation Code 0.9 - 1.2 ratio AO Coag SS PT Coag (PPP) [Time] 12.5 s Invalid Interpretation Code 9.7 - 13.9 seconds AO Coag SS LABORATORYOrdered By: SYSTEM SYSTEM on 03-09-2022 Albumin BCP dye [Mass/Vol] 4.3 G/dL Invalid Interpretation Code 3.5 - 5.0 G/dL AO ADM SS Albumin/Globulin [Mass ratio] 1.3 {ratio} Invalid Interpretation Code 1.1 - 2.5 ratio AO ADM SS ALP [Catalytic activity/Vol] 78 U/L Invalid Interpretation Code 40 - 135 U/L AO ADM SS ALT With P-5'-P [Catalytic activity/Vol] 22 U/L Invalid Interpretation Code 14 - 59 U/L AO ADM SS AST With P-5'-P [Catalytic activity/Vol] 19 U/L Invalid Interpretation Code 10 - 40 U/L AO ADM SS Bilirubin [Mass/Vol] 0.5 mg/dL Invalid Interpretation Code 0.2 - 1.0 mg/dL AO ADM SS Calcium [Mass/Vol] 9.1 mg/dL Invalid Interpretation Code 8.4 - 10.2 mg/dL AO ADM SS Chloride [Moles/Vol] 103 mmol/L Invalid Interpretation Code 98 - 107 mmol/L AO ADM SS CO2 [Moles/Vol] 29 mmol/L Invalid Interpretation Code 22 - 29 mmol/L AO ADM SS Creatinine [Mass/Vol] 0.75 mg/dL Invalid Interpretation Code 0.55 - 1.02 mg/dL AO ADM SS Electrolyte Balance 9.0 mEq/L Invalid Interpretation Code 4.0 - 15.0 mEq/L AO ADM SS GFR 116 ml/min/1.73sqm Invalid Interpretation Code AO Chemistry S GFR Non- 96 ml/min/1.73sqm Invalid Interpretation Code AO Chemistry S Globulin 3.2 G/dL Invalid Interpretation Code AO ADM SS Glucose [Mass/Vol] 107 mg/dL Invalid Interpretation Code 70 - 105 mg/dL AO ADM SS Lipase [Catalytic activity/Vol] 50 U/L Invalid Interpretation Code 16 - 77 U/L AO ADM SS Potassium [Moles/Vol] 3.6 mmol/L Invalid Interpretation Code 3.5 - 5.1 mmol/L AO ADM SS Protein [Mass/Vol] 7.5 G/dL Invalid Interpretation Code 6.4 - 8.2 G/dL AO ADM SS Sodium [Moles/Vol] 141 mmol/L Invalid Interpretation Code 136 - 145 mmol/L AO ADM SS Urea nitrogen [Mass/Vol] 17 mg/dL Invalid Interpretation Code 7 - 18 mg/dL AO ADM SS Urea nitrogen/Creatinine [Mass ratio] 23 ratio Invalid Interpretation Code 7 - 27 ratio AO ADM SS LABORATORYOrdered By: Abby Hoff on 03-09-2022 Appearance (U) Clear (03/09/22 4:38 AM) Invalid Interpretation Code Clear AO Auto Urine SS Basophil, Absolute 0.2 103/mcL Invalid Interpretation Code 0.0 - 0.2 10^3/mcL AO Workflow SS Basophils/100 WBC (Bld) 2.3 % Invalid Interpretation Code 0.0 - 2.5 % AO Workflow SS Bilirubin Ql (U) Negative (03/09/22 4:38 AM) Invalid Interpretation Code Negative AO Auto Urine SS Color (U) Yellow (03/09/22 4:38 AM) Invalid Interpretation Code AO Auto Urine SS Eosinophil, Absolute 0.6 103/mcL Invalid Interpretation Code 0.0 - 0.4 10^3/mcL AO Workflow SS Eosinophils/100 WBC (Bld) 7.9 % Invalid Interpretation Code 0.0 - 7.0 % AO Workflow SS Erythrocyte distribution width (RBC) [Ratio] 12.6 % Invalid Interpretation Code 11.5 - 14.5 % AO Workflow SS Glucose Test strip (U) [Mass/Vol] Negative Invalid Interpretation Code Negativemg/dL AO Auto Urine SS HCG ( test) Ql Negative (03/09/22 4:38 AM) Invalid Interpretation Code AO Manual Urine SS Hematocrit (Bld) [Volume fraction] 42.1 % Invalid Interpretation Code 37.0 - 47.0 % AO Workflow SS Hemoglobin (Bld) [Mass/Vol] 14.4 G/dL Invalid Interpretation Code 12.0 - 16.0 G/dL AO Workflow SS Hemoglobin Auto test strip (U) [Mass/Vol] Trace *ABN* (03/09/22 4:38 AM) Invalid Interpretation Code Negative AO Auto Urine SS Ketones Ql (U) Negative Invalid Interpretation Code Negativemg/dL AO Auto Urine SS Lymphocyte, Absolute 3.1 103/mcL Invalid Interpretation Code 0.8 - 3.9 10^3/mcL AO Workflow SS Lymphocytes/100 WBC (Bld) 38.7 % Invalid Interpretation Code 10.0 - 50.0 % AO Workflow SS MCH (RBC) [Entitic mass] 30.5 pg Invalid Interpretation Code 27.0 - 31.2 pg AO Workflow SS MCHC 34.2 G/dL Invalid Interpretation Code 33.0 - 37.0 G/dL AO Workflow SS MCV (RBC) [Entitic vol] 89.1 fL Invalid Interpretation Code 80.0 - 94.0 fL AO Workflow SS Monocyte distribution width Auto (Bld) [Entitic vol] 15.84 Invalid Interpretation Code 0.00 - 20.00 AO Workflow SS Comment on above: Result Comment: For ED adult patients suspected of sepsis, MDW<=20.0 does not rule out sepsis or risk of sepsis Monocyte, Absolute 0.6 103/mcL Invalid Interpretation Code 0.2 - 1.0 10^3/mcL AO Workflow SS Monocytes/100 WBC (Bld) 7.4 % Invalid Interpretation Code 1.7 - 13.0 % AO Workflow SS Neutrophil, Absolute 3.5 103/mcL Invalid Interpretation Code 2.9 - 6.2 10^3/mcL AO Workflow SS Neutrophils/100 WBC (Bld) 43.7 % Invalid Interpretation Code 37.0 - 80.0 % AO Workflow SS Platelet mean volume (Bld) [Entitic vol] 7.3 fL Invalid Interpretation Code 7.4 - 10.4 fL AO Workflow SS Platelets (Bld) [#/Vol] 281 103/mcL Invalid Interpretation Code 130 - 400 10^3/mcL AO Workflow SS test (u) int Not detected Invalid Interpretation Code AO Manual Urine SS RBC (Bld) [#/Vol] 4.72 106/mcL Invalid Interpretation Code 4.20 - 5.40 10^6/mcL AO Workflow SS UA Leuk Est Trace *ABN* (03/09/22 4:38 AM) Invalid Interpretation Code Negative AO Auto Urine SS UA Nitrite Negative (03/09/22 4:38 AM) Invalid Interpretation Code Negative AO Auto Urine SS UA pH 5.5 (03/09/22 4:38 AM) Invalid Interpretation Code 5.0 - 8.0 AO Auto Urine SS UA Protein Negative Invalid Interpretation Code Negativemg/dL AO Auto Urine SS UA RBC None Seen /HPF Invalid Interpretation Code None Seen/HPF AO Auto Urine SS UA Spec Grav >=1.030 *ABN* (03/09/22 4:38 AM) Invalid Interpretation Code 1.015-1.025 AO Auto Urine SS UA Specimen Type Clean Catch (03/09/22 4:38 AM) Invalid Interpretation Code AO Auto Urine SS UA Squam Epithelial 0-5 /HPF Invalid Interpretation Code None Seen/HPF AO Auto Urine SS UA Urobilinogen 0.2 E.U./dL Invalid Interpretation Code 0.2-1.0E.U./d L AO Auto Urine SS WBC (Bld) [#/Vol] 8.1 103/mcL Invalid Interpretation Code 4.6 - 10.8 10^3/mcL AO Workflow SS WBC LM.HPF (Urine sed) [#/Area] 0-5 /HPF Invalid Interpretation Code None Seen/HPF AO Auto Urine SS LIPon 03-09-2022 Lipase Level 50 U/L Normal 16-77 [facility] ([place]) Comment on above: Performed By: #### M DW, CBC, LIP, ANEU, CMP, GFR, ADIFF #### [address] [address] PREGUon 03-09-2022 HCG ( test) Ql (U) Negative Normal [facility] ([place] Comment on above: Performed By: #### U A, UAMICAO, PREGU #### [address] [address] test (u) int Not detected Invalid Interpretation Code [facility] ([place] Comment on above: Performed By: #### U A, UAMICAO, PREGU #### [address] [address] PROon 03-09-2022 INR Coag (PPP) [Relative time] 1.1 {INR} Normal 0.9-1.2 [facility] ([place]) Comment on above: Result Comment: Sridhar dard Dose 2.0 - 3.0 High Dose 2.5 - 3.5 The recommended therapeutic range for oral anticoagulant therapy is: LOW RISK: Prophylaxis of venous thrombosis INR: 2.0 - 3.0 Treatment of pulmonary embolism 2.0 - 3.0 Prevention of systemic embolism 2.0 - 3.0 HIGH RISK: Mechanical prosthetic valves 2.5 - 3.5 Performed By: #### P RO, ANSG, APTT, ABOG ####[place] [address] [address] PT Coag (PPP) [Time] 12.5 s Normal 9.7-13.9 [facility] ([place]) Comment on above: Performed By: #### P RO, ANSG, APTT, ABOG ####[address] [address] UAon 03-09-2022 Color (U) Yellow Normal [facility] ([place] Comment on above: Performed By: #### U A, UAMICAO, PREGU #### [address] [address] Glucose (U) [Mass/Vol] Negative Normal Negative [facility] ([place] Comment on above: Performed By: #### U A, UAMICAO, PREGU #### [address] [address] Ketones Ql (U) Negative Normal Negative [facility] ([place] Comment on above: Performed By: #### U A, UAMICAO, PREGU #### [place] [address] UA Appear Clear Normal Clear [facility] ([place] Comment on above: Performed By: #### U A, UAMICAO, PREGU #### [address] [address] UA Blood Trace Abnormal Negative [facility] ([place] Comment on above: Performed By: #### U A, UAMICAO, PREGU #### [place] [address] UA Leuk Est Trace Abnormal Negative [facility] [place] Comment on above: Performed By: #### U A, UAMICAO, PREGU #### [place] [address] UA Nitrite Negative Normal Negative [facility] [place] Comment on above: Performed By: #### U A, UAMICAO, PREGU #### [place] [address] UA pH 5.5 Normal 5.0 - 8.0 [facility] [place] Comment on above: Performed By: #### U A, UAMICAO, PREGU #### [place] [address] UA Protein Negative Normal Negative [facility] [place] Comment on above: Performed By: #### U A, UAMICAO, PREGU #### [place] [address] UA Spec Grav >=1.030 Abnormal 1.015-1.025 [facility] [place] Comment on above: Performed By: #### U A, UAMICAO, PREGU #### [place] [address] UA Specimen Type Clean Catch Normal [facility] [place] Comment on above: Performed By: #### U A, UAMICAO, PREGU #### [place] [address] UA Urobilinogen 0.2 E.U./dL Normal 0.2-1.0 [facility] [place] Comment on above: Performed By: #### U Bacilio UAMICTHAD PREGU #### [address] [place] [address] [place], [place] [address] Urobilinogen (U) [Mass/Vol] Negative Normal Negative [facility] [place] Comment on above: Performed By: #### U A UAMICTHAD PREGU #### [place] [address] [place], [place] [address] Progress Noteon 08-21-2021 Color Maker Formulator Authentication Interface Message Text Amie Jimenez was seen on at [facility] to discuss the ultrasound finding of polyhydramnios History At the time of the visit Amie was 21 y.o. y.o. and approximately 35 6/7 weeks gestation. Known velamentous cord insertion Family and Medical History Low risk NIPT- male Report normal glucose screen Follow-up Weekly BPP, fluid evaluation Consider other underlying etiology if increases Reinforced movement monitoring, continued follow up with OB provider The total patient time of the visit was 10 minutes: 5 direct patient care, 5 minutes chart review and documentation. Normal [facility] CBCon 02-09-2017 Erythrocyte distribution width Auto Ratio (RBC) 12.3 % Normal 11.5-15.0 [facility] Comment on above: Performed By: #### H BSAG, HIV12C, RUBIGG, CBC, SYPHGX ####[facility] [place], [place] [phone] Erythrocytes (RBC) 10*6/uL Normal <0.01 [facility] Comment on above: Performed By: #### H BSAG, HIV12C, RUBIGG, CBC, SYPHGX ####[facility] [place], [place] [phone] Erythrocytes (RBC) 4.31 10*6/uL Normal 3.90-5.20 [facility] Comment on above: Performed By: #### H BSAG, HIV12C, RUBIGG, CBC, SYPHGX ####[place] [address] [address] [place] [phone] Hematocrit (HCT) 40.8 % Normal 36.0-46.0 [facility] Comment on above: Performed By: #### H BSAG, HIV12C, RUBIGG, CBC, SYPHGX ####[address] [phone] Hemoglobin mass conc (Bld) 13.2 g/dL Normal 11.5-15.5 [facility] Comment on above: Performed By: #### H BSAG, HIV12C, RUBIGG, CBC, SYPHGX ####[phone] MCH 30.6 pG Normal 26.0-34.0 [facility] Comment on above: Performed By: #### H BSAG, HIV12C, RUBIGG, CBC, SYPHGX ####[phone] MCHC mass conc (RBC) 32.4 g/dL Normal 30.5-36.0 [facility] Comment on above: Performed By: #### H BSAG, HIV12C, RUBIGG, CBC, SYPHGX ####[address] [phone] MCV 94.7 fL Normal 80.0-100.0 [facility] Comment on above: Performed By: #### H BSAG, HIV12C, RUBIGG, CBC, SYPHGX ####[address] [place] [phone] Platelet mean volume (PMV) 10.0 fL Normal 9.0-12.7 [facility] Comment on above: Performed By: #### H BSAG, HIV12C, RUBIGG, CBC, SYPHGX ####[address] [phone] Platelets 357 10*3/uL Normal 150-400 [facility] Comment on above: Performed By: #### H BSAG, HIV12C, RUBIGG, CBC, SYPHGX ####[place] [address] [place], [place] [phone] WBC (Leukocytes) 11.82 10*3/uL High 3.70-11.00 [facility] [place] Comment on above: Performed By: #### H BSAG, HIV12C, RUBIGG, CBC, SYPHGX ####[place] [phone] GC/Chlamydia Amplifon 2016 Chlamydia Amplif Negative Normal [facility] Comment on above: Performed By: #### G CCT ####[place] [phone] GC Amplification Negative Normal [facility] Comment on above: Performed By: #### G CCT ####[place] [phone] GC/Chlam Amp Source Cervix Normal [facility] Comment on above: Performed By: #### G CCT ####[place] [phone] HIV 12 Combo (Ag/Ab)on 02-09 HIV 12 Ag/Ab Non Reactive Normal Non Reactive [facility] Comment on above: Result Comment: (NOT E)HIV Information: [place] Rev. Code 3701.243(E):This information has been disclosed to you from confidential recordsprotected from disclosure by state law. You shall make no furtherdisclosure of this information without the specific, written, andinformed release of the individual to whom it pertains, or asotherwise permitted by state law. A general authorization for therelease of medical or other information is not sufficient for thepurpose of the release of HIV test results or diagnoses. Performed By: #### H BSAG, HIV12C, RUBIGG, CBC, SYPHGX ####[facility] [address] [place], [place] [phone] HOSPon 02-09-2017 HOSP Initial Off ice Visit (WOOB) CHANI MOISE ([id number]) 2000 FDate Time Provider Uphzulmmdt33/19/17 9:45 AM CLINTON LOVE During your visit today, we recorded the following information about you: Blood pressure Weight Height Last Period 102/60 50.3 kg 1.613 m 12/12/16Clinton Love MD 02/09/2017 10:41 AM SignedINITIAL OB ASSESSMENTOB Provider: Kenisha Galicia [facility]: Amie Moise is a 16 year old female here to establishObstetrical Care. 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 Patient BMI over 30? NoMarital Status:MarriedPAST MEDICAL HISTORYDiagnosis Date- ChlamydiaNo past surgical history on file.Current Outpatient Prescriptions on File Prior to Visit: Rtvtwvee-Ni-Udm-Fe-FA ( VITAMIN) tab Take 1 tablet by mouth.DOCOSAHEXANOIC ACID/EPA (FISH OIL ORAL) Take by mouth.MULTIVITAMIN ORAL Take by mouth.No current facility-administered medications on file prior to visit.Review of Systems:GENERAL: Negative for: Fever or ChillsHEENT: Negative for: Headache, Impaired Vision, Ringing in Ears, NosebleedsNECK: Negative for: Swelling, Pain, StiffnessRESPIRATORY: Negative for: Cough, Shortness of breath, WheezingGASTROINTESTINAL : Negative for: Heartburn, Constipation, Diarrhea, Blood instoolMUSCULOSKELETAL: Negative for: Muscle or joint pain, stiffness, Joint swellingNEUROLOGIC/PSYCH IATRIC: Negative for: Weakness, Paralysis, Numbness, Tingling,Tremor, Anxiety, Depression, Memory lossSKIN: Negative for: Rash, ItchingGENITOURINARY: Negative for: vaginal itching, vaginal discharge, hematuria ordysuriaPHYSICAL EXAM: LMP 12/12/2016GENERAL: pleasant female in no apparent distressDERMATOLOGY: Normal, without lesions, non-icteric and non-hirsuteNECK: Supple, full range of motion, no adenopathy and thyroid normalCHEST: Normal inspiratory effortBREAST: soft, non-tender, symmetric, no dominant mass, normal nipple-areolarcomplex, no lymphadenopathy and no nipple dischargeABDOMEN: soft, non-tender and no massesNEURO: alert and oriented x3,exam grossly non-focalPELVIS: External genitalia normal without lesions. Perineal body intact. Novaginal or cervical lesions. Cervix closed. Uterus 8 week size. No adnexalmasses or tenderness.Clinical Pelvimetry: Pelvimetry clinically assessed as adequateLimited OB ultrasound exam: single intrauterine and positive fetalcardiac activityASSESSMENT: 16 year old at 8ANDamp;3 wks gestational agePLAN:1) Patient oriented to practice.Discussed nutrition, folic acid supplementation, dietary guidelines, exercise,smoking, alcohol, caffeine, and drug use.Discussed routine OB labs including STD/HIV.Discussed aneuploidy screening options including serum screening and nuchaltranslucency.Patie nt declines all aneuploidy screening.CF carrier screening discussed and declined.2) See problem listFollow up in 4 weeks or sooner prn.Karmon Tomer, MDReferring Provider: SELF [200]Allergies As of Date: 02/09/2017(No Known Allergies)Date Reviewed: 02/09/2017Reviewed by: Kenisha Galicia LPN - Fully AssessedReason for Visit: Initial OB Visit [4058]Primary Visit Diagnosis:Supervision of normal first teen in first trimester [Z34.01] Other Visit Diagnoses:8 weeks gestation of [Z3A.08] Supervision of normal first , antepartum [Z34.00]Order(s):CBC [SQCBC] Order #: [id number] FUTURE SYPHILIS IGG WITH CONF [SQSYPHGX] Order #: [id number] FUTURE RUBELLA IGG AB [SQRUBQNT] Order #: [id number] FUTURE HEP B SURF AG SCRN [SQHBSAG] Order #: [id number] FUTURE HIV 1,2 COMBO (AG/AB) [SQHIV12] Order #: [id number] FUTURE TYPE + SCREEN [SQTSPN] Order #: [id number] FUTURE GC/CHLAMYDIA DNA DET [SQGCCAMP] Order #: [id number] URINE CULTURE [SQURCUL] Order #: [id number] TOX SCREEN ROUT UR [SQUTOX2] Order #: [id number] as of 02/09/2017 Sig: VITAMIN,CALCIUM,MINE* Take 1 tablet by mouth. FISH OIL ORAL Take by mouth.Problem List As Of Date 02/09/2017 Noted Resolved Acne vulgaris [L70.0] INVALID FOR* Supervision of normal first [Z34.00] INVALID FOR*Medications Discontinued During This Encounter MULTIVITAMIN ORAL 02/09/2017 Class: Historical Med Route: ORAL Sig: Take by mouth. Disc: Discontinued by PatientDisposition: Return in 4 weeks (on 03/09/2017) for FOLLOW UP.Follow-up and Disposition History RecordedEncounter Number: [id number] Status:Closed by CLINTON LOVE MD on 02/09/17 Normal [facility] Hepatitis B Surf. Agon 02-09 Hepatitis B Surf. Ag Negative Normal Negative [facility] Comment on above: Performed By: #### H BSAG, HIV12C, RUBIGG, CBC, SYPHGX ####[facility] [address] AveC[address], [place] [phone] PROGRESSon 02-09-2017 PROGRESS HNO ID: [id number]: Clinton Espino: (none)Author Type: PhysicianType: Progress NotesFiled: 02/09/2017 10:41 AMNote Text:INITIAL OB ASSESSMENTOB Provider: Kenisha Galicia LPCAPI: Amie Moise is a 16 year old female here to establishObstetrical Care. Patient's last menstrual period was 12/12/2016 (exactdate). 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 Patient BMI over 30? NoMarital Status:MarriedPAST MEDICAL HISTORYDiagnosis Date- ChlamydiaNo past surgical history on file.Current Outpatient Prescriptions on File Prior to Visit: Rhskjyuy-Ni-Tuk-Fe-FA ( VITAMIN) tab Take 1 tablet bymouth.DOCOSAHEXANOIC ACID/EPA (FISH OIL ORAL) Take by mouth.MULTIVITAMIN ORAL Take by mouth.No current facility-administered medications on file prior to visit.Review of Systems:GENERAL: Negative for: Fever or ChillsHEENT: Negative for: Headache, Impaired Vision, Ringing in Ears,NosebleedsNECK: Negative for: Swelling, Pain, StiffnessRESPIRATORY: Negative for: Cough, Shortness of breath, WheezingGASTROINTESTINAL : Negative for: Heartburn, Constipation, Diarrhea, Bloodin stoolMUSCULOSKELETAL: Negative for: Muscle or joint pain, stiffness, JointswellingNEUROLOGIC/ PSYCHIATRIC: Negative for: Weakness, Paralysis, Numbness,Tingling, Tremor, Anxiety, Depression, Memory lossSKIN: Negative for: Rash, ItchingGENITOURINARY: Negative for: vaginal itching, vaginal discharge, hematuriaor dysuriaPHYSICAL EXAM: LMP 12/12/2016GENERAL: pleasant female in no apparent distressDERMATOLOGY: Normal, without lesions, non-icteric and non-hirsuteNECK: Supple, full range of motion, no adenopathy and thyroid normalCHEST: Normal inspiratory effortBREAST: soft, non-tender, symmetric, no dominant mass, normalnipple-areolar complex, no lymphadenopathy and no nipple dischargeABDOMEN: soft, non-tender and no massesNEURO: alert and oriented x3,exam grossly non-focalPELVIS: External genitalia normal without lesions. Perineal body intact.No vaginal or cervical lesions. Cervix closed. Uterus 8 week size. Noadnexal masses or tenderness.Clinical Pelvimetry: Pelvimetry clinically assessed as adequateLimited OB ultrasound exam: single intrauterine and positivefetal cardiac activityASSESSMENT: 16 year old at 8AND3 wks gestational agePLAN:1) Patient oriented to practice.Discussed nutrition, folic acid supplementation, dietary guidelines,exercise, smoking, alcohol, caffeine, and drug use.Discussed routine OB labs including STD/HIV.Discussed aneuploidy screening options including serum screening andnuchal translucency.Patient declines all aneuploidy screening.CF carrier screening discussed and declined.2) See problem listFollow up in 4 weeks or sooner prn.Clinton Love MD Normal [facility] Rubella IgG Antibodyon 02-09 Rubella IgG Ab 1.33 Index Value Normal [facility] Comment on above: Result Comment: Inde x values are interpreted as follows:Negative specimens <0.90Equivocol specimens 0.90 to 0.99Positive specimens >0.99The magnitude of the measured result is not indicative of the amount of antibody present. Performed By: #### H BSAG, HIV12C, RUBIGG, CBC, SYPHGX ####[facility] [place], [place] [phone] Rubella IgG Ab, Qual Positive Critically abnormal Negative [facility] Comment on above: Result Comment: Samp le is considered positive for IgG antibodies to rubella virus.A positive result indicates previous exposure to Rubella virus or vaccination. Performed By: #### H BSAG, HIV12C, RUBIGG, CBC, SYPHGX ####[place] [address] [place], [place] [phone] Syphilis IgG with Confon Syphilis IgG <0.2 Normal [facility] Comment on above: Result Comment: Anti body index is interpreted as follows:Non reactive SPECIMENS <=0.8Weak reactive SPECIMENS 0.9 to 5.9Reactive SPECIMENS >=6.0 Performed By: #### H BSAG, HIV12C, RUBIGG, CBC, SYPHGX ####[place] [phone] Syphilis IgG, Qual Nonreactive Normal Nonreactive [facility] Comment on above: Result Comment: In c onjunction with this result, the immune status of the patient should be evaluated based on their clinical status, related risk factors, and other diagnostic test results. Performed By: #### H BSAG, HIV12C, RUBIGG, CBC, SYPHGX ####[place] [phone] Toxicology Screen,Uron 02-09 Amphetamines, Urine Negative Normal Negative [facility] [place] Comment on above: Result Comment: Cuto ff threshold at 1000 ng/mL.Cross reactivity with other substances can occur with immunoassay screening. In house validation testing showed 70% of preliminary positive samples were confirmed by mass spectrometry (high specificity, quantitative) testing. Greater than 99% of negative screen results were confirmed by mass spectrometry (high specificity, quantitative) testing. Performed By: #### U TOX2 ####[place] [phone] Barbiturates, Urine Negative Normal Negative [facility] Comment on above: Result Comment: Cuto ff threshold at 200 ng/mL.Cross reactivity with other substances can occur with immunoassay screening. In house validation testing showed greater than 99% of preliminary positive samples were confirmed by mass spectrometry (high specificity, quantitative) testing. Greater than 99% of negative screen results were confirmed by mass spectrometry (high specificity, quantitative) testing. Performed By: #### U TOX2 ####[place] [address], [place] [phone] Benzodiazepines, Ur Negative Normal Negative [facility] Comment on above: Result Comment: Cuto ff threshold at 200 ng/mL.Cross reactivity with other substances can occur with immunoassay screening. In house validation testing showed 90% of preliminary positive samples were confirmed by mass spectrometry (high specificity, quantitative) testing. 80% of negative screen results were confirmed by mass spectrometry (high specificity, quantitative) testing. Performed By: #### U TOX2 ####[address] [phone] Cannabinoids, Urine Negative Normal Negative [facility] [place] Comment on above: Result Comment: Cuto ff threshold at 50 ng/mL.Cross reactivity with other substances can occur wtih immunoassay screening. In house validation testing showed 80% of preliminary positive samples were confirmed by mass spectrometry (high specificity, quantitative) testing. Greater than 99% of negative screen results were confirmed by mass spectrometry (high specificity, quantitative) testing. Performed By: #### U TOX2 ####[place] [address] [address], [place] [phone] Cocaine, Urine Negative Normal Negative [facility] Comment on above: Result Comment: Cuto ff threshold at 300 ng/mL.Cross reactivity with other substances can occur with immunoassay screening. In house validation testing showed greater than 99% of preliminary positive samples were confirmed by mass spectrometry (high specificity, quantitative) testing. Greater than 99% of negative screen results were confirmed by mass spectrometry (high specificity, quantitative) testing. Performed By: #### U TOX2 ####[place] [address] [address], [place] [phone] Ethanol, Urine <11 Normal <11 [facility] Comment on above: Performed By: #### U TOX2 ####[place] [address] [place], [place] [phone] Opiates, Urine Negative Normal Negative [facility] Comment on above: Result Comment: Cuto ff threshold at 300 ng/mL.Cross reactivity with other substances can occur wtih immunoassay screening. In house validation testing showed greater than 99% of preliminary positive samples were confirmed by mass spectrometry (high specificity, quantitative) testing. 90% of negative screen results were confirmed by mass spectrometry (high specificity, quantitative) testing. Performed By: #### U TOX2 ####[place] [address] [place], [place] [phone] Oxycodone, Urine Negative Normal Negative [facility] Comment on above: Result Comment: Cuto ff threshold at 100 ng/mL.Cross reactivity with other substances can occur with immunoassay screening. In house validation testing showed greater than 99% of preliminary positive samples were confirmed by mass spectrometry (high specificity, quantitative) testing. Greater than 99% of negative screen results were confirmed by mass spectrometry (high specificity, quantitative) testing.Comment:Immunoassay screen only. Detection of any drug(s) in this urine toxicology panel is presumptive only. Intended use is for evaluation of suspected acute overdose. These tests are for medical purposes only and should not be used for compliance monitoring, legal, or forensic use.If clinically indicated, confirmation by high specificity, quantitative methodology may be requested on the same specimen through Client Services ([phone]) if contacted within 48 hours of initial testing.These tests were developed and their performance characteristics determined by [facility]'s Wilfredo Doll [facility] [place] ([facility]). They have not been cleared or approved by the FDA. [facility] is regulated under CLIA as qualified to perform high complexity testing.These tests are used for clinical purposes. They should not be regarded as investigational or for research. Performed By: #### U TOX2 ####[facility] [place], [place] [phone] Phencyclidine, Urine Negative Normal Negative [facility] Comment on above: Result Comment: Cuto ff threshold at 25 ng/mL.Cross reactivity with other substances can occur with immunoassay screening. In house validation testing showed 80% of preliminary positive samples were confirmed by mass spectrometry (high specificity, quantitative) testing. Greater than 99% of negative screen results were confirmed by mass spectrometry (high specificity, quantitative) testing. Performed By: #### U TOX2 ####[place] [address] [place], [place] [phone] Type and Scr,Prenatlon 02-09 ABO/RH(D) Positive Normal [facility] Comment on above: Performed By: #### T SPN ####[place] [address] [place], [place] [phone] Antibody Screen Negative Normal [facility] Comment on above: Performed By: #### T SPN ####[place] [address] [place], [place] [phone] Urine Cultureon 02-09-2017 Urine culture, bacteria Sp. Request/Comment: - Specimen received in preservative Culture Result - No growth (<1,000 CFU/ml) Normal [facility] Comment on above: Performed By: #### U RCUL ####[facility] [place], [place] [phone] CNNURSEon 01-12-2017 CNNURSE Nurse Visit (WOOB) CHANI MOISE ([id number]) 2000 FDate Time Provider Gjuikgromb43/21/17 9:30 AM NURSE PNOB [facility] WSTR WOOB During your visit today, we recorded the following information about you: Last Period 12/12/16Apolonia Weeks RN 01/12/2017 9:47 AM SignedSEQUENTIAL SCREENINGSThe [facility] offers sequential screenings for women who are interestedin screenings for chromosomal abnormalities and certain defects during apregnancy. The sequential screen combines ultrasound and blood tests todetermine the risk of chromosomal abnormalities, including Down's Syndrome(Trisomy 21) and Trisomy 18, as well as open neural tube defects includingspina bifida. Ultrasound examination is performed between 11 weeks and 13 weeksgestational age. Blood tests are drawn after the ultrasound and again later inthe between 15 and 21 weeks gestational age. Please let yourphysician know if you are interested in this testing. It will require anappointment with our licensed chemical spray technician. This is not an ultrasound performedby a physician in our office during a routine visit.SIGNS AND SYMPTOMS OF LABOR1. Contractions every 10 minutes or more often2. Clear, pink, or brownish fluid (water) leaking from vagina3. Feeling that baby is pushing down, pressure4. Low, dull backache5. Cramps that feel like a period6. Cramps with or without diarrheaIf you notice any of the above symptoms, contact our office at [phone] andask to speak with a nurse.After hours, you can call doctors registry at [phone] OR call [facility] at [phone] and ask to have the doctor medical collections paged.If you consider this an emergency, dial 9-1-1 or go to your nearest emergencydepartment.Cord -Blood BankingUp until recently, the umbilical cord--along with the blood that remained in itafter a baby was born and the cord cut--was simply discarded by the hospital.Then, in the late 1980s, researchers discovered that cord blood possessedunusual properties that made it useful in the treatment of patients with somecancers and other illnesses. While the actual process of collecting cord bloodis straightforward, many parents are not even aware that this option nowexists, much less familiar with all the issues involved.The case for saving your baby's cord bloodThe blood running back and forth between your baby and the placenta is full ofimmature cells called stem cells. Unlike embryonic stem cells, which have theability to develop into any type of body cell, cord-blood stem cells alreadyare locked into a certain, vital function: making all the different componentsof the blood, such as platelets, white blood cells, and red bloodcells-serving, in effect, like bone marrow. When transfused into a patientwhose own blood cells have faulty genetic coding or have been destroyed bychemotherapy or other cancer treatments, the cord-blood cells can implantthemselves in the bone marrow and generate legions of new, healthy cells.These days, cord-blood transplants most commonly are used in cancer patientswhen a donor can't be found for a bone-marrow transplant. The treatment isparticularly effective in young patients-the [facility] Cord BloodBank reports a 70 percent success rate in children, but only 20 to 40 percentin adults. Researchers envision improving those odds and see many futureapplications as well, such as curing sickle cell disease and otherblood-related genetic illnesses. So there is a possibility that your child, orsomeone else, may need these super-healthy and versatile cells one day.The drawbacksAside from not knowing about this medical option, the main reason most [place] not save their baby's stem cells is cost. In a private blood bank, theinitial costs run from $275 to $1,500. Most also charge a yearly storage fee of$50 to $95. The advantage of using a private bank is that your sample is savedfor only you to use.An alternative to private bankingPublic cord-blood escobar are an alternative. These cost no money to use, butyour sample is not specifically saved for you. Another person with a moreimmediate need may use it. If the time should come that you need stem cells,yours may still be available, or you may use donations from other peoplewithout charge. You also can direct your sample to go to a relative with animmediate need if the blood type matches. Anyone else needing to use stem cellsfrom a public bank who has not been a donor must pay for it, sometimes tens ofthousands of dollars.Will my family benefit from saving stem cells?Right now, situations in which stem cells would be helpful are quite rare. Asmentioned earlier, stem-cell transplants are most commonly used for raregenetic conditions and for some types of cancer, including leukemia andlymphoma.And even with these present uses, many questions remain. In cancer treatment,for example, some researchers are concerned about the wisdom of transplantingback into the child the same cells that already showed a propensity to becomemalignant. Doctors also aren't sure if the number of cells taken at the time ofbirth would be enough to treat a full-grown 16-year-old. It is also notcompletely clear how active the cells would be after years of being stored. Thetreatment is so new and rare, we just don't have the data yet to resolve theseimportant issues.What do the experts say?The [place] [employer] encourages philanthropic blood banking inpublic escobar, but only for families with a current or potential need.Blood-bank proponents encourage any kind of banking, pointing out that researchis getting closer and closer to many diverse, live-saving applications.How do I decide?Each family must weigh the pros and cons for themselves. Some families say thatany cost is worth their peace of mind. Others say that in the face ofuncertainty about the effectiveness of the treatment, they will use theirresources elsewhere. Some choose the middle ground of donating publicly,knowing that their sample might benefit another family, if not themselves. Formore information, ask your doctor or nurse, and be sure to check out ourarticle on the technical aspects of cord-blood banking.Technical Aspects of Cord-Blood BankingIf you are interested in storing your baby's umbilical-cord blood because ofits possible use in emerging medical treatments, you must make arrangementswith a blood bank before your child is born. The collection procedure is quitesimple:After delivery of the baby, the umbilical cord is clamped and cut in the usualway. The blood that remains in the umbilical-cord vessels is then collected insterile containers. The blood may be removed from the cord with a large needleor allowed to flow freely, depending on the company's collection system. Thecontainers may look like large test tubes or like the plastic bags used in ablood bank. It does not cause the mother or the baby any pain to collect theblood, and no blood is taken that the baby needs at the moment.The nurse, client advisor, or physician will then label the samples, check them overwith you, and package them for a special pickup arranged with a commercialcarrier. When the blood arrives at the blood-bank facility, it is processed andthe parents are notified. It is then kept in an advanced storage system foryears.How do I know that my sample is safe?Power outages and bankruptcies potentially could threaten any organization, butso far none have been reported. It is to be hoped that the scientists in thesebanks would arrange for safe transfer to another facility if the need arose.YOU MUST MAKE ARRANGEMENTS AHEAD OF TIME!Public cord-blood escobar--DONATION:[employer] [phone], [facility] Cord [facility], private cord-blood escobar--SAVING FOR YOUR OWN USE:[employer], (I think this is the least expensive)[employer] [phone], (354) [place] [facility] Blood [facility], [phone]) 700-CORDBirth Cells, [phone] Cryobank, Cord Blood Registry, (690) CORDBLOODViacord, an Internet search may provide you with additional listings.Referring Provider: SELF [200]Allergies As of Date: 01/12/2017(No Known Allergies)Date Reviewed: 01/12/2017Reviewed by: Apolonia Weeks RN - Fully AssessedReason for Visit: Care [86] Cmt: Pre-New OBPrimary Visit Diagnosis:Supervision of normal first , antepartum [Z34.00]Prescriptions as of 01/12/2017 Sig: VITAMIN,CALCIUM,MINE* Take 1 tablet by mouth. FISH OIL ORAL Take by mouth. MULTIVITAMIN ORAL Take by mouth.Medication notes this encounter MULTIVITAMIN ORAL >> Apolonia Weeks RN 01/12/2017 9:34 AM >> APOLONIA WEEKS RN e Jan 12, 2017 9:34 AM Pt no longer takingProblem List As Of Date 01/12/2017 Noted Resolved Acne vulgaris [L70.0] INVALID FOR* Other instructions from your clinician: SEQUENTIAL SCREENINGS The [facility] offers sequential screenings for women who are interested in screenings for chromosomal abnormalities and certain defects during a . The sequential screen combines ultrasound and blood tests to determine the risk of chromosomal abnormalities, including Down's Syndrome (Trisomy 21) and Trisomy 18, as well as open neural tube defects including spina bifida. Ultrasound examination is performed between 11 weeks and 13 weeks gestational age. Blood tests are drawn after the ultrasound and again later in the between 15 and 21 weeks gestational age. Please let your physician know if you are interested in this testing. It will require an appointment with our licensed chemical spray technician. This is not an ultrasound performed by a physician in our office during a routine visit. SIGNS AND SYMPTOMS OF LABOR 1. Contractions every 10 minutes or more often 2. Clear, pink, or brownish fluid (water) leaking from vagina 3. Feeling that baby is pushing down, pressure 4. Low, dull backache 5. Cramps that feel like a period 6. Cramps with or without diarrhea If you notice any of the above symptoms, contact our office at [phone] and ask to speak with a nurse. After hours, you can call doctors registry at [phone] OR call [facility] at [phone] and ask to have the doctor medical collections paged. If you consider this an emergency, dial or go to your nearest emergency department. Cord-Blood Banking Up until recently, the umbilical cord--along with the blood that remained in it after a baby was born and the cord cut--was simply discarded by the hospital. Then, in the late , researchers discovered that cord blood possessed unusual properties that made it useful in the treatment of patients with some cancers and other illnesses. While the actual process of collecting cord blood is straightforward, many parents are not even aware that this option now exists, much less familiar with all the issues involved. The case for saving your baby's cord blood The blood running back and forth between your baby and the placenta is full of immature cells called stem cells. Unlike embryonic stem cells, which have the ability to develop into any type of body cell, cord-blood stem cells already are locked into a certain, vital function: making all the different components of the blood, such as platelets, white blood cells, and red blood cells-serving, in effect, like bone marrow. When transfused into a patient whose own blood cells have faulty genetic coding or have been destroyed by chemotherapy or other cancer treatments, the cord-blood cells can implant themselves in the bone marrow and generate legions of new, healthy cells. These days, cord-blood transplants most commonly are used in cancer patients when a donor can't be found for a bone-marrow transplant. The treatment is particularly effective in young patients-the [facility] Cord Blood Bank reports a 70 percent success rate in children, but only 20 to 40 percent in adults. Researchers envision improving those odds and see many future applications as well, such as curing sickle cell disease and other blood-related genetic illnesses. So there is a possibility that your child, or someone else, may need these super-healthy and versatile cells one day. The drawbacks Aside from not knowing about this medical option, the main reason most people do not save their baby's stem cells is cost. In a private blood bank, the initial costs run from $275 to $1,500. Most also charge a yearly storage fee of $50 to $95. The advantage of using a private bank is that your sample is saved for only you to use. An alternative to private banking Public cord-blood escobar are an alternative. These cost no money to use, but your sample is not specifically saved for you. Another person with a more immediate need may use it. If the time should come that you need stem cells, yours may still be available, or you may use donations from other people without charge. You also can direct your sample to go to a relative with an immediate need if the blood type matches. Anyone else needing to use stem cells from a public bank who has not been a donor must pay for it, sometimes tens of thousands of dollars. Will my family benefit from saving stem cells? Right now, situations in which stem cells would be helpful are quite rare. As mentioned earlier, stem-cell transplants are most commonly used for rare genetic conditions and for some types of cancer, including leukemia and lymphoma. And even with these present uses, many questions remain. In cancer treatment, for example, some researchers are concerned about the wisdom of transplanting back into the child the same cells that already showed a propensity to become malignant. Doctors also aren't sure if the number of cells taken at the time of would be enough to treat a full-grown 16-year-old. It is also not completely clear how active the cells would be after years of being stored. The treatment is so new and rare, we just don't have the data yet to resolve these important issues. What do the experts say? The [place] [employer] encourages philanthropic blood banking in public escobar, but only for families with a current or potential need. Blood-bank proponents encourage any kind of banking, pointing out that research is getting closer and closer to many diverse, live-saving applications. How do I decide? Each family must weigh the pros and cons for themselves. Some families say that any cost is worth their peace of mind. Others say that in the face of uncertainty about the effectiveness of the treatment, they will use their resources elsewhere. Some choose the middle ground of donating publicly, knowing that their sample might benefit another family, if not themselves. For more information, ask your doctor or nurse, and be sure to check out our article on the technical aspects of cord-blood banking. Technical Aspects of Cord-Blood Banking If you are interested in storing your baby's umbilical-cord blood because of its possible use in emerging medical treatments, you must make arrangements with a blood bank before your child is born. The collection procedure is quite simple: After delivery of the baby, the umbilical cord is clamped and cut in the usual way. The blood that remains in the umbilical-cord vessels is then collected in sterile containers. The blood may be removed from the cord with a large needle or allowed to flow freely, depending on the company's collection system. The containers may look like large test tubes or like the plastic bags used in a blood bank. It does not cause the mother or the baby any pain to collect the blood, and no blood is taken that the baby needs at the moment. The nurse, client advisor, or physician will then label the samples, check them over with you, and package them for a special pickup arranged with a commercial carrier. When the blood arrives at the blood-bank facility, it is processed and the parents are notified. It is then kept in an advanced storage system for years. How do I know that my sample is safe? Power outages and bankruptcies potentially could threaten any organization, but so far none have been reported. It is to be hoped that the scientists in these escobar would arrange for safe transfer to another facility if the need arose. YOU MUST MAKE ARRANGEMENTS AHEAD OF TIME! Public cord-blood escobar--DONATION: [employer] [phone] [facility]'s Placental Blood Program, [facility] Umbilical Cord Blood Bank, Private cord-blood escobar--SAVING FOR YOUR OWN USE: [employer], (I think this is the least expensive) Cry[employer]Bank [phone] [employer], ([phone]) LIF[facility]ANK [place] Cord Blood Bank, [phone]-CORD Cells, [phone] [place] Cryob[facility], Cord Blood Registry, ([phone]) [facility], An Internet search may provide you with additional listings.Disposition: Return in 4 weeks (on 02/09/2017) for New OB with Dr Love.Follow-up and Disposition History RecordedEncounter Number: [id number] Status:Closed by APOLONIA WEEKS RN on 01/12/17 [facility] CNCOon 11-12-2016 CNCO Letter TextDear Chani Moise:How to activate your [facility] [employer] Account 1. Visit the [employer] Signup page at [email or web address] 2. Identify yourself using your one-time use activation code: [email or web address] 3. Follow the on-screen prompts to choose your own secure username andpasswordThe following information will be necessary to access your account for thefirst time:Information needed for sign-up:Your custom activation code used one-time only for the initial accountset-up.Your date of birthThe last 4 digits of your social security numberWhat to do next:Fill in the requested information on the Identify Yourself Form [email or web address] , click Next.Create your login and password, choose a [employer] ID and password that will beeasy for you to use, but impossible for anyone else to guess.Pick a security question that will assist you in the event you forget yourpassword the next time you log-on.If you have difficulty activating your account, please call our [place] at [phone] or toll free at .We hope you enjoy using [employer]!Kindest Regards,[facility] Ovonyxt Team [facility] CNOVon 11-12-2016 CNOV Office Visit (WOOB) CHANI MOISE ([id number]) 2000 [facility] Time Provider Department11/12/16 2:00 PM CLINTON LOVE During your visit today, we recorded the following information about you: Blood pressure Weight Last Period 116/64 51.2 kg 10/21/16Clinton Love MD 11/12/2016 2:44 PM Jennie Moise is a 16 year old female who presents for concerns.HPI: Patient just got ANDamp; wants to get . She had chlamydiaearlier this year ANDamp; wants to know if things are OK. She had it for at last7 months ANDamp; never had any pain. 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 Noabdominal pain, nausea, vomiting, diarrhea, or constipation.Bladder: No dysuria, gross hematuria, urinary frequency, urinary urgency, orincontinence.Breast: No breast lumps, nipple d/c, overlying skin changes, redness or skinretraction.Expanded ROS: N/AAllergies and current medication updated:YesEXAM: There were no vitals taken for this visit.GENERAL: pleasant, female in no apparent distressCHEST: Normal inspiratory effortPELVIC: external genitalia normal, normal Bartholin's glands, urethra, [place]'sglands, no vulvar lesions, no cervical lesions, good vaginal support, normalappearing perineal body and perianal regionNEURO: alert and oriented x3,exam grossly non-focalEXTREMITIES: normalASSESSMENT AND PLAN:No diagnosis found.16yo female with h/o chlamydia ANDamp; desiring pregnancyGC/chlamPreconc eption counseling performed including folic acid recommendationsPatient will call with positive test of if no within 12months as would recommend HSGAll questions answeredGibran Calderon Provider: SELF [200]Allergies As of Date: 11/12/2016(No Known Allergies)Date Reviewed: 11/12/2016Reviewed by: Mandeep Packer Ma - Fully AssessedReason for Visit: Pre-conception Counseling [Other]Reason For Visit History RecordedPrimary Visit Diagnosis:Screen for STD (sexually transmitted disease) [Z11.3] Other Visit Diagnosis:History of chlamydia [Z86.19]Order(s):GC/CHLA MYDIA DNA DET [SQGCCAMP] Order #: [id number] as of 11/12/2016 Sig: MULTIVITAMIN ORAL Take by mouth.Medication notes this encounter DROSPIRENONE-ETHINYL ESTRADIOL 3 MG-0.02 MG (24) TABLET >> Mandeep Packer Ma 11/12/2016 2:04 PM >> MANDEEP PACKER MA Julianna Nov 12, 2016 2:04 PM Not takingProblem List As Of Date 11/12/2016 Noted Resolved Acne vulgaris [L70.0] INVALID FOR*Medications Discontinued During This Encounter Drospirenone-Ethinyl Estradiol (ZONIA* 1 Pa* 13 08/12/2016 11/12/2016 Route: ORAL Sig: Take 1 tablet by mouth once daily. Disc: Discontinued by PatientEncounter Number: [id number] Status:Closed by CLINTON LOVE MD on 11/12/16 [facility] GC/Chlamydia Amplifon 2016 Chlamydia Amplif Negative Normal [facility] Comment on above: Performed By: #### G CCT ####[facility], [place] [id number] GC Amplification Negative Normal [facility] Comment on above: Performed By: #### G CCT ####[facility] [address] [place], [place] [phone] GC/Chlam Amp Source Cervix Normal [facility] Comment on above: Performed By: #### G CCT ####[facility] [address] [place], [place] [phone] PROGRESSon 11-12-2016 PROGRESS HNO ID: [id number]: Clinton Espino: (none)Author Type: PhysicianType: Progress NotesFiled: 11/12/2016 2:44 PMNote Text:Amie Moise is a 16 year old female who presents for concerns.HPI: Patient just got AND wants to get . She had chlamydiaearlier this year AND wants to know if things are OK. She had it for atlast 7 months AND never had any pain. 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 [place]Social History Main Topics Smoking status: Never Smoker Smokeless status: Never Used Alcohol use: No Drug use: No Sexual activity: Not Currently Partners with: MaleCurrent Outpatient Prescriptions:Drospireno ne-Ethinyl Estradiol (SIOBHAN, 28,) 3-0.02 mg per tablet Take 1tablet by mouth once daily.MULTIVITAMIN ORAL Take by mouth.No current facility-administered medications for this visit.Allergies As of Date: 11/12/2016(No Known Allergies)Fully Assessed 08/12/2016REVIEW OF SYSTEMSAbdomen: No bloating, early satiety, indigestion, or increased flatulence.No abdominal pain, nausea, vomiting, diarrhea, or constipation.Bladder: No dysuria, gross hematuria, urinary frequency, urinary urgency,or incontinence.Breast: No breast lumps, nipple d/c, overlying skin changes, redness orskin retraction.Expanded ROS: N/AAllergies and current medication updated:YesEXAM: There were no vitals taken for this visit.GENERAL: pleasant, female in no apparent distressCHEST: Normal inspiratory effortPELVIC: external genitalia normal, normal Bartholin's glands, urethra,[place]'s glands, no vulvar lesions, no cervical lesions, good vaginalsupport, normal appearing perineal body and perianal regionNEURO: alert and oriented x3,exam grossly non-focalEXTREMITIES: normalASSESSMENT AND PLAN:No diagnosis found.16yo female with h/o chlamydia AND desiring pregnancy/chlamPreconc eption counseling performed including folic acid recommendationsPatient will call with positive test of if no [id number] months as would recommend HSGAll questions answeredClinton Love MD [facility] Vital Signs Date Time Vital Sign Value Performing Clinician Cande castaneda 03-09-2022 12:30-0500 Body temperature 97.52 [degF] EKTA ALVARENGA MD [facility] 03-09-2022 12:30-0500 Diastolic Blood Pressure Non-Invasive 81 1 EKTA ALVARENGA MD [facility] 03-09-2022 12:30-0500 Heart rate 80 /min EKTA ALVARENGA MD [facility] 03-09-2022 12:30-0500 Reason For Taking VItal Signs EKTA ALVARENGA MD [facility] 03-09-2022 12:30-0500 Respiratory rate 16 /min EKTA ALVARENGA MD [facility] 03-09-2022 12:30-0500 Systolic Blood Pressure Non-Invasive 125 1 EKTA ALVARENGA MD [facility] 03-09-2022 12:15-0500 Diastolic Blood Pressure Non-Invasive 62 1 EKTA ALVARENGA MD [facility] [facility] 03-09-2022 12:15-0500 Heart rate 74 /min EKTA ALVARENGA MD [facility] 03-09-2022 12:15-0500 Respiratory rate 15 /min EKTA ALVARENGA MD [facility] 03-09-2022 12:15-0500 Systolic Blood Pressure Non-Invasive 96 1 EKTA ALVARENGA MD [facility] 03-09-2022 11:55-0500 Diastolic Blood Pressure Non-Invasive 64 1 EKTA ALVARENGA MD [facility] 03-09-2022 11:55-0500 Heart rate 77 /min EKTA ALVARENGA MD [facility] 03-09-2022 11:55-0500 Respiratory rate 14 /min EKTA ALVARENGA MD [facility] 03-09-2022 11:55-0500 Systolic Blood Pressure Non-Invasive 89 1 EKTA ALVARENGA MD [facility] 03-09-2022 11:06-0500 Body temperature 97.34 [degF] EKTA ALVARENGA MD [facility] 03-09-2022 11:06-0500 Reason For Taking VItal Signs EKTA ALVARENGA MD [facility] 03-09-2022 11:00-0500 Respiratory Rate - Anes 15 br/min EKTA ALVARENGA MD [facility] 03-09-2022 10:55-0500 Respiratory Rate - Anes 6 br/min EKTA ALVARENGA MD [facility] 03-09-2022 10:50-0500 Respiratory Rate - Anes 12 br/min EKTA ALVARENGA MD [facility] 03-09-2022 10:45-0500 Body temperature 97.38 [degF] EKTA ALVARENGA MD [facility] 03-09-2022 10:40-0500 Body temperature 97.21 [degF] EKTA ALVARENGA MD [facility] 03-09-2022 10:35-0500 Body temperature 97.05 [degF] EKTA ALVARENGA MD [facility] 03-09-2022 09:18-0500 Body height 160 cm EKTA ALVARENGA MD [facility] 03-09-2022 09:18-0500 Body temperature 98.42 [degF] EKTA ALVARENGA MD [facility] 03-09-2022 09:18-0500 Body weight 54.5 kg EKTA ALVARENGA MD [facility] 03-09-2022 09:18-0500 Body weight 21.29 kg/m2 EKTA ALVARENGA MD [facility] 03-09-2022 09:18-0500 Heart rate 73 /min EKTA ALVARENGA MD [facility] 03-09-2022 07:40-0500 Body height 160 cm EKTA ALVARENGA MD [facility] 03-09-2022 07:40-0500 Body weight 54.5 kg EKTA ALVARENGA MD [facility] 03-09-2022 07:40-0500 Body weight 21.29 kg/m2 EKTA ALVARENGA MD [facility] 03-09-2022 07:39-0500 Body temperature 97.7 [degF] EKTA ALVARENGA MD [facility] 03-09-2022 07:39-0500 Heart rate 71 /min EKTA ALVARENGA MD [facility] 03-09-2022 07:39-0500 Reason For Taking VItal Signs EKTA ALVARENGA MD [facility] 03-09-2022 07:27-0500 Heart rate 78 /min EKTA ALVARENGA MD [facility] 03-09-2022 04:43-0500 Blood Pressure Location EKTA ALVARENGA MD [facility] 03-09-2022 04:43-0500 Body temperature 97.88 [degF] EKTA ALVARENGA MD [facility] Encounters Encounter Date Encounter Type Care Provider Facility Start: 03-09-2022 End: 03-09-2022 ambulatory NOT RECORDED PHYSICIAN Facility:B Start: 03-09-2022 End: 03-09-2022 Observation EKTA ALVARENGA MD [facility] Start: 02-09-2017 End: 02-09-2017 Ambulatory [place] [facility] Start: 02-09-2017 End: 02-10-2017 Ambulatory [place] [facility] Start: 01-12-2017 End: 01-12-2017 Ambulatory [place] [facility] Start: 11-12-2016 End: 11-13-2016 Ambulatory [place] [facility] Procedures Date Procedure Procedure Detail Performing Clinician Start: 03-09-2022 Laparoscopic appendectomy EKTA ALVARENGA MD Dilation and curettage EKTA ALVARENGA MD Ligation of fallopian tube M NATHAN ALVARENGA MD Immunizations Immunization Date Immunization Notes Care Provider [facility] 06-26-2021 tetanus toxoid, redu ariel diphtheria toxoid, and acellular pertussis vaccine, adsorbed EKTA ALVARENGA MD [facility] 03-15-2019 tetanus toxoid, redu ariel diphtheria toxoid, and acellular pertussis vaccine, adsorbed EKTA ALVARENGA MD [facility] 07-12-2017 tetanus toxoid, redu ariel diphtheria toxoid, and acellular pertussis vaccine, adsorbed EKTA ALVARENGA MD [facility] 11-06-2016 tetanus toxoid, redu ariel diphtheria toxoid, and acellular pertussis vaccine, adsorbed EKTA ALVARENGA MD [facility] 08-13-2015 Human Papillomavirus Quadval EKTA ALVARENGA MD [facility] 10-01-2003 measles/mumps/rubell a virus vaccine EKTA ALVARENGA MD [facility] 06-22-1999 varicella virus vaccine EKTA ALVARENGA MD [facility] 06-05-1999 haemophilus influenz ae type b vaccine, PRP-T conjugate EKTA ALVARENGA MD [facility] 05-26-1999 measles/mumps/rubell a virus vaccine EKTA ALVARENGA MD [facility] 1998 haemophilus influenz ae type b vaccine, PRP-T conjugate EKTA ALVARENGA MD [facility] 1998 hepatitis B pediatri c vaccine EKTA ALVARENGA MD [facility] 1998 poliovirus vaccine, inactivated EKTA ALVARENGA MD [facility] 1998 haemophilus influenz ae type b vaccine, PRP-T conjugate EKTA ALVARENGA MD [facility] 1998 poliovirus vaccine, inactivated EKTA ALVARENGA MD [facility] 1998 haemophilus influenz ae type b vaccine, PRP-T conjugate EKTA ALVARENGA MD [facility] 1998 hepatitis B pediatri c vaccine EKTA ALVARENGA MD [facility] 1998 poliovirus vaccine, inactivated EKTA ALVARENGA MD [facility] 1998 hepatitis B pediatri c vaccine EKTA ALVARENGA MD [facility] Payers Date Payer Category Payer Unknown [id number] 2000 Unknown [id number] Social History Date Type Detail Facility Start: 03-09-2022 Tobacco smoking status Never s moked tobacco (finding) [facility] Sex Assigned At Female [facility] Functional Status Date Assessment Result Facility 03-09-2022 Functional Status Door open, Room check performed [facility] 03-09-2022 Functional Status bilateral knee high l [facility] 03-09-2022 Functional Status NPO Status Maintained A [facility] 03-09-2022 Functional Status 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, Community mobility, 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, 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, Health and wellness, Hobbies/Play/Sports, Home management, Housework [facility] Mental Status Date Assessment Result Facility 03-09-2022 Mental Status Oriented x 4 [facility] 03-09-2022 Mental Status [facility] Discharge instructions 03-09-2022 Note Date & Type Note Facility 03-09-2022 Hospital Discharg e instructions Patient Education 03/09/2022 13:35:51 Laparoscopic Appendectomy, Adult, Care After, [id number] Laparoscopic Appendectomy, Adult, Care After This sheet gives you information about how to care for yourself after your procedure. Your doctor may also give you more specific instructions. If you have problems or questions, contact your doctor. What can I expect after the procedure? After the procedure, it is common to have: Little energy for normal activities. Mild pain in the area where the cuts from surgery (incisions) were made. Trouble pooping (constipation). This can be caused by: ?Pain medicine. ?A lack of activity. Follow these instructions at home: Medicines Take cjbz-ulx-bugqacb and prescription medicines only as told by your doctor. If you were prescribed an antibiotic medicine, take it as told by your doctor. Do not stop taking it even if you start to feel better. Do not drive or use heavy machinery while taking prescription pain medicine. Ask your doctor if the medicine you are taking can cause trouble pooping. You may need to take steps to prevent or treat trouble pooping: ?Drink enough fluid to keep your pee (urine) pale yellow. ?Take zqxf-rsd-gtercwi or prescription medicines. ?Eat foods that are high in fiber. These include beans, whole grains, and fresh fruits and vegetables. ?Limit foods that are high in fat and sugar. These include fried or sweet foods. Incision care Follow instructions from your doctor about how to take care of your cuts from surgery. Make sure you: ?Wash your hands with soap and water before and after you change your bandage (dressing). If you cannot use soap and water, use hand keyseater operator. ?Change your bandage as told by your doctor. ?Leave stitches (sutures), skin glue, or skin tape (adhesive) strips in place. They may need to stay in place for 2 weeks or longer. If tape strips get loose and curl up, you may trim the loose edges. Do not remove tape strips completely unless your doctor says it is okay. Check your cuts from surgery every day for signs of infection. Check for: ?Redness, swelling, or pain. ?Fluid or blood. ?Warmth. ?Pus or a bad smell. Bathing Keep your cuts from surgery clean and dry. Clean them as told by your doctor. To do this: 1.Gently wash the cuts with soap and water. 2.Rinse the cuts with water to remove all soap. 3.Pat the cuts dry with a clean towel. Do not rub the cuts. Do not take baths, swim, or use a hot tub for 2 weeks, or until your doctor says it is okay. You may take showers after [address] Do not drive for 24 hours if you were given a medicine to help you relax (sedative) during your procedure. Rest after the procedure. Return to your normal activities as told by your doctor. Ask your doctor what activities are safe for you. For 3 weeks, or for as long as told by your doctor: ?Do not lift anything that is heavier than 10 lb (4.5 kg), or the limit that you are told. ?Do not play contact sports. General instructions If you were sent home with a drain, follow instructions from your doctor on how to care for it. Take deep breaths. This helps to keep your lungs from getting an infection (pneumonia). Keep all follow-up visits as told by your doctor. This is important. Contact a doctor if: You have redness, swelling, or pain around a cut from surgery. You have fluid or blood coming from a cut. Your cut feels warm to the touch. You have pus or a bad smell coming from a cut or a bandage. The edges of a cut break open after the stitches have been taken out. You have pain in your shoulders that gets worse. You feel dizzy or you pass out (faint). You have shortness of breath. You keep feeling sick to your stomach (nauseous). You keep throwing up (vomiting). You get watery poop (diarrhea) or you cannot control your poop. You lose your appetite. You have swelling or pain in your legs. You get a rash. Get help right away if: You have a fever. You have trouble breathing. You have sharp pains in your chest. Summary After the procedure, it is common to have low energy, mild pain, and trouble pooping. Infection is a common problem after this procedure. Follow your doctor's instructions about caring for yourself after the procedure. Rest after the procedure. Return to your normal activities as told by your doctor. Contact your doctor if you see signs of infection around your cuts from surgery, or you get short of breath. Get help right away if you have a fever, chest pain, or trouble breathing. This information is not intended to replace advice given to you by your health care provider. Make sure you discuss any questions you have with your health care provider. Document Released: 12/05/2009 Document Revised: 08/11/2018 Document Reviewed: 08/11/2018 [employer] Patient Education 2020 [email or web address]. Follow Up Care 03/09/2022 04:22:28 With:EKTA ALVARENGA Address: [address] [place] [address]- [phone] Business (1) When:Within 2 Week(s) [facility] Clinical Note 03-09-2022 Note Date & Type Note Facility 03-09-2022 Note Discharge Instructions Thank you for allowing [facility] to assist you with your healthcare needs. The following is important discharge information regarding your hospital visit. Your Care Team Dr. Lyle MD Your Diagnosis Abdominal pain Appendicitis What to do next Instructions From Your Doctor See discharge instruction sheet provided by Dr. Alvarenga. Follow Up Appointments Follow Up with EKTA ALVARENGA When In 2 weeks Where: [address] [facility] [address] [place] [address]- [phone] Business (1) The Following Activity and Diet Have Been Ordered for You Discharge Activity - Ordered -- Sexual [place] Restricted No bending, twisting, crawling or squatt, No shower or tub bath for 2 days; no driving for 5 days, no lifting >15 lbs, 03/09/22 11:02:00 EST Discharge Diet - Ordered -- Follow the post-operative/post-procedure diet instructions provided by your physician's office., 03/09/22 11:02:00 EST The Following Equipment Has Been Ordered for You Discharge Home Equipment Discharge Wound Care - Ordered -- Dressing Type: Dry sterile drsg, Remove dressing in two (2) days. Leave steristrips on until they fall off, 03/09/22 11:02:00 EST Allergies NKA Medications Please ask your primary doctor or pharmacist before taking any other medication not listed, including over the counter drugs, herbal medications, vitamins and or supplements as they may interact with your home medications. What How Much When Instructions Last Dose Unchanged sertraline (sertraline 50 mg oral tablet) 1 tab(s) by mouth Every day not given Please take this list to your next doctor s visit. Bring all medications you take, including over the counter medications, herbals and other supplements with you to your doctor s visit. Patients and families are reminded to discard old lists and to update any records with all medication providers or retail pharmacies. Dr. Alvarenga is to send prescriptions into [email or web address] in [place]. Please call [phone] if you have any questions or concerns regarding medications prescribed. Education Materials Laparoscopic Appendectomy, Adult, Care After This sheet gives you information about how to care for yourself after your procedure. Your doctor may also give you more specific instructions. If you have problems or questions, contact your doctor. What can I expect after the procedure? After the procedure, it is common to have: Little energy for normal activities. Mild pain in the area where the cuts from surgery (incisions) were made. Trouble pooping (constipation). This can be caused by: ? Pain medicine. ? A lack of activity. Follow these instructions at home: Medicines Take wluz-jla-ztkmodr and prescription medicines only as told by your doctor. If you were prescribed an antibiotic medicine, take it as told by your doctor. Do not stop taking it even if you start to feel better. Do not drive or use heavy machinery while taking prescription pain medicine. Ask your doctor if the medicine you are taking can cause trouble pooping. You may need to take steps to prevent or treat trouble pooping: ? Drink enough fluid to keep your pee (urine) pale yellow. ? Take puzq-yvg-qwpxirb or prescription medicines. ? Eat foods that are high in fiber. These include beans, whole grains, and fresh fruits and vegetables. ? Limit foods that are high in fat and sugar. These include fried or sweet foods. Incision care Follow instructions from your doctor about how to take care of your cuts from surgery. Make sure you: ? Wash your hands with soap and water before and after you change your bandage (dressing). If you cannot use soap and water, use hand keyseater operator. ? Change your bandage as told by your doctor. ? Leave stitches (sutures), skin glue, or skin tape (adhesive) strips in place. They may need to stay in place for 2 weeks or longer. If tape strips get loose and curl up, you may trim the loose edges. Do not remove tape strips completely unless your doctor says it is okay. Check your cuts from surgery every day for signs of infection. Check for: ? Redness, swelling, or pain. ? Fluid or blood. ? Warmth. ? Pus or a bad smell. Bathing Keep your cuts from surgery clean and dry. Clean them as told by your doctor. To do this: 1. Gently wash the cuts with soap and water. 2. Rinse the cuts with water to remove all soap. 3. Pat the cuts dry with a clean towel. Do not rub the cuts. Do not take baths, swim, or use a hot tub for 2 weeks, or until your doctor says it is okay. You may take showers after [address] Do not drive for 24 hours if you were given a medicine to help you relax (sedative) during your procedure. Rest after the procedure. Return to your normal activities as told by your doctor. Ask your doctor what activities are safe for you. For 3 weeks, or for as long as told by your doctor: ? Do not lift anything that is heavier than 10 lb (4.5 kg), or the limit that you are told. ? Do not play contact sports. General instructions If you were sent home with a drain, follow instructions from your doctor on how to care for it. Take deep breaths. This helps to keep your lungs from getting an infection (pneumonia). Keep all follow-up visits as told by your doctor. This is important. Contact a doctor if: You have redness, swelling, or pain around a cut from surgery. You have fluid or blood coming from a cut. Your cut feels warm to the touch. You have pus or a bad smell coming from a cut or a bandage. The edges of a cut break open after the stitches have been taken out. You have pain in your shoulders that gets worse. You feel dizzy or you pass out (faint). You have shortness of breath. You keep feeling sick to your stomach (nauseous). You keep throwing up (vomiting). You get watery poop (diarrhea) or you cannot control your poop. You lose your appetite. You have swelling or pain in your legs. You get a rash. Get help right away if: You have a fever. You have trouble breathing. You have sharp pains in your chest. Summary After the procedure, it is common to have low energy, mild pain, and trouble pooping. Infection is a common problem after this procedure. Follow your doctor's instructions about caring for yourself after the procedure. Rest after the procedure. Return to your normal activities as told by your doctor. Contact your doctor if you see signs of infection around your cuts from surgery, or you get short of breath. Get help right away if you have a fever, chest pain, or trouble breathing. This information is not intended to replace advice given to you by your health care provider. Make sure you discuss any questions you have with your health care provider. Document Released: 12/05/2009 Document Revised: 08/11/2018 Document Reviewed: 08/11/2018 [employer] Patient Education 2020 [email or web address]. Additional Information VACCINATE! IT SAVES LIVES! Members of the community who have not yet received the COVID-19 vaccine and would like to receive it can visit one of [facility] vaccine clinics. There are many vaccine clinic locations within the [facility]. For locations and available times, please visit [email or web address] It is important to note that some COVID mobile vaccine clinics are held outdoors and may be canceled in rainy or stormy conditions. To learn more about pediatric vaccinations (ages 5-11), we invite you to visit the [facility] webpage. [email or web address]/[email or web address]-[email or web address]-Jylvrghnzll-Frequently-[email or web address] -Questions.html To learn more about the COVID-19 vaccine, we invite you to visit the [facility] website for a list of frequently asked questions. [email or web address] [facility] OneChart Patient Portal Access Instructions: Stay connected with your healthcare team and access your personal medical information anytime with the [facility] Patient Portal.If you would like a full copy of your medical records, please contact the [facility] Medical Records Department, Wednesday through Wednesday between 8a.m. and 4:30p.m. Please follow the directions below to access the portal: 1.Access the email account you provided upon registration to the [facility].2.Look for an invitation email from [facility].3.Open the email and access the invitation link: Accept Invitation to [facility].Fill in the required baker to create your account. Sign into [email or web address].[email or web address] with your username and password that you created in the above steps to stay up to date. You can then view a summary of results, a summary of your visits, and the ability to download your summaries to your computer or send the information securely to a physician. Remember that your healthcare information is confidential, so carefully consider who you will allow to register on the [facility] Patient Portal for access to your information. You can also access the [facility] Patient Portal on the [employer]. Simply click on Health Records under Health Data and then click on the [facility] logo. HOW TO SAFELY DISPOSE OF PRESCRIPTION MEDICATIONS Please use one of the following methods to safely dispose of your unused medications. 1.Use a drug disposal kit: the drug disposal pouch allows you to safely discard your old and unused drugs. Ask your nurse to give you one when you are discharged.2.Visit a local take-back location: Many local pharmacies and police departments have programs that collect old and unwanted prescription drugs. Call your local pharmacy or go to http://UYA100.Custom Coup/1P0Bd8m to find one close to you.3.Make use of household items: Use cat litter or old coffee grounds to dispose medications if other options are not available. Mix your drugs with these household products, seal them in an airtight container and throw it into the garbage. Call [facility]: [phone] to be sure your drugs can be disposed of in this way. Some medicines may require a different approach.4.Never flush your medications down the toilet. IF YOU HAVE BEEN PRESCRIBED AN OPIOID FOR PAIN If you have been prescribed an opioid (such as hydrocodone, oxycodone or morphine), it is critical to understand the possible side effects and risks of opioid pain medications. Even when taken as directed, opioids can have several side effects including: Tolerance, meaning you might need to take more of a medication for the same pain relief. Nausea, vomiting and/or constipation. Sleepiness, dizziness, dry mouth, confusion, depression or itching. Physical dependence, meaning you have withdrawal symptoms when a medication is stopped, can develop within a few days. KNOW YOUR RESPONSIBILITIES It is important to know exactly how much and how often to take the opioid pain medications you are prescribed. Never take opioids in higher amounts or more often than prescribed. Do not combine opioids with alcohol or other drugs that cause drowsiness, such as benzodiazepines, also known as benzos, including diazepam and alprazolam, muscle relaxants or sleep aids. Never sell or share prescription opioids. This is illegal. Store opioids in a secure place and out of reach of others (including children, family, friends and visitors). The last page of this document has been signed and retained as a CHART COPY. Signatures Patient Education Materials Laparoscopic Appendectomy, Adult, Care After, Osfg-kq-Wbcd Medication Leaflets My discharge plan and instructions have been reviewed and explained to me and I,AMIE JIMENEZ understand my current condition and have read and understand these discharge instructions. I have received a written copy of the plan/instructions. If I have questions, I am aware that I should contact my doctor. Patient/Operating Room Surgical Technician Signature: _ Date/Time: Relationship to Patient: Witness Name/Signature: Date/Time: [facility] Evaluation + Plan note 03-09-2022 Note Date & Type Note Facility 03-09-2022 Evaluation + Plan note Extrac rafael from: Title:History and Physical Author:EKTA ALVARENGA MD Date:03/09/22 Appendicitis Lower abdominal and right lower quadrant pain and tenderness for about [address] scan findings consistent with acute appendicitis. Recommend expeditious appendectomy and explained laparoscopic appendectomy to the patient and reviewed the potential risks and potential conversion to an open procedure. Understand there slight possibility ovarian diagnosis in which case of the appendix looks normal will be removed anyway and a search for other causes undertaken. Patient understands and agrees to proceed. [facility] History and physical note 03-09-2022 Note Date & Type Note Facility 03-09-2022 History and physical note Date of Service 03/09/2022 Chief Complaint Lower abdominal suprapubic pain History of Present Illness 21-year-old otherwise healthy female who woke up about 3:30 AM this morning with sharp pain in lower mid abdomen suprapubic region. It was somewhat worsened by moving around it difficult to walk straight up and down. No associated nausea or vomiting. Normal bowel movement yesterday. No diarrhea or constipation. No fever or chills. She felt normal when she went to bed last night. Never had this exact type of pain before. Otherwise healthy. 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 Only prior surgery was a laparoscopic salpingectomy and a D&C. Review of Systems Pertinent review of systems is included in the history of present illness. Review of systems otherwise noncontributory except as noted above. Physical Exam Vitals and Measurements T: 36.9 C (Temporal Artery) TMIN: 36.5 C (Oral) TMAX: 36.9 C (Temporal Artery) HR: 73 RR: 11 BP: 99/66 SpO2: 100% HT: 160 cm WT: 54.5 kg BMI: 21.29 Weight Dosing Weight: 54.5 kg (03/09/22) Dosing Weight: 54.5 kg (03/09/22) Thin healthy-appearing awake alert coherent cooperative and appears to be in her normal state of health in no distress. Alert oriented x3 cranial nerve and peripheral motor exam symmetric and nonfocal. HEENT exam is unremarkable. Pupils equal round reactive extraocular movements intact mouth and oral mucous membranes are negative. Sclera nonicteric. Neck shows trachea midline no masses no thyromegaly no cervical or supraclavicular adenopathy Lungs are clear and equal to auscultation all baker. Heart shows regular rhythm S1-S2 no prominent murmurs or gallops. Abdomen is soft nondistended and benign to exam in the upper and mid abdomen with fairly significant tenderness in the lower abdomen maximal in the lower midline in the right lower quadrant with guarding and percussion tenderness in that area. Bowel sounds are present. No masses. Extremities are grossly unremarkable showing no peripheral edema or cyanosis Lab Results 03/09 06:31 Protime: 12.5 PT International Ratio: 1.1 03/09 04:38 WBC: 8.1 Hgb: 14.4 Hct: 42.1 Platelet: 281 Neutrophil %: 43.7 Glucose Level: 107 H Sodium Level: 141 Potassium Level: 3.6 BUN: 17 Creatinine Lvl (s): 0.75 Imaging Results and Diagnostics Abdominal pelvic CT scan images are reviewed. There is difficult to discern details down the pelvis because the patient is very thin and lacks major fat planes but there does appear to be some swelling and edema in the area of the appendix and the radiologist feels that it appears enhance dilated and inflamed consistent with acute appendicitis. Assessment/Plan Appendicitis Lower abdominal and right lower quadrant pain and tenderness for about [address] scan findings consistent with acute appendicitis. Recommend expeditious appendectomy and explained laparoscopic appendectomy to the patient and reviewed the potential risks and potential conversion to an open procedure. Understand there slight possibility ovarian diagnosis in which case of the appendix looks normal will be removed anyway and a search for other causes undertaken. Patient understands and agrees to proceed. Problem List/Past Medical History No other ongoing medical problems Procedure/Surgical History Tubal ligation Dilation and curettage Medications Home Medications (1) Active sertraline 50 mg oral tablet 50 mg = 1 tab(s), Oral, Daily Allergies NKA Social History Alcohol Use: Never., 03/09/2022 Home/Environment Domestic Concerns: Denies. Living situation: Home/Independent. Lives In: Multilevel home. Current Home Treatments None. Professional Skilled Services or Special Community Resources None. Financial concerns: No. Spouse Name: Bernie. Marital Status: ., 03/09/2022 Nutrition/Health Type of diet: Regular. Appetite Good. Eating Difficulties None. Enteral Feedings No. TPN Feedings No. Skin Breakdown No. Caffeine intake amount: Coffee- 1 serving., 03/09/2022 Substance Abuse Use: Never., 03/09/2022 Tobacco Nicotine Use: Never (less than 100 in lifetime)., 03/09/2022 Family History Colon cancer: Grandparent. Immunizations haemophilus b conjugate (PRP-T) vaccine: 0 unknown unit (06/05/99) haemophilus b conjugate (PRP-T) vaccine: 0 unknown unit (98) haemophilus b conjugate (PRP-T) vaccine: 0 unknown unit (98) haemophilus b conjugate (PRP-T) vaccine: 0 unknown unit (98) hepatitis B pediatric vaccine: 0 unknown unit (98) hepatitis B pediatric vaccine: 0 unknown unit (98) hepatitis B pediatric vaccine: 0 unknown unit (98) Human Papillomavirus Quadval: 0 unknown unit (08/13/15) measles/mumps/rubella virus vaccine: 0 unknown unit (10/01/03) measles/mumps/rubella virus vaccine: 0 unknown unit (05/26/99) poliovirus vaccine, inactivated: 0 unknown unit (98) poliovirus vaccine, inactivated: 0 unknown unit (98) poliovirus vaccine, inactivated: 0 unknown unit (98) tetanus/diphth/pertuss (Tdap) adult/adol: 0.5 unknown unit (06/26/21) tetanus/diphth/pertuss (Tdap) adult/adol: 0.5 unknown unit (03/15/19) tetanus/diphth/pertuss (Tdap) adult/adol: 0.5 unknown unit (07/12/17) tetanus/diphth/pertuss (Tdap) adult/adol: 0 unknown unit (11/06/16) varicella virus vaccine: 0 unknown unit (06/22/99) Code Status Code Status - Ordered -- 03/09/22 6:07:00 EST, Full Code, Constant Order Digitally Signed by EKTA ALVARENGA MD on 03/09/2022 10:20 AM [facility] Anesthesiology Consult note 03-09-2022 Note Date & Type Note Facility 03-09-2022 Anesthesiology Consult note Patient: AMIE JIMENEZ Age: 21 years Sex: Female : 2000 Associated Diagnoses: None Author: RAIZA MCGRATH Preoperative Information Anesthesia history Patient's history: negative. Family's history: negative. Health Status Allergies: Allergic Reactions (Selected) NKA, Allergies (1) ActiveReaction NKANone Documented Current medications: (Selected) Documented Medications Documented sertraline 50 mg oral tablet: 50 mg, 1 tab(s), Oral, Daily, 0 Refill(s), No qualifying data available Problem list: Active Problems (1) History of D&C Histories Past Medical History: No active or resolved past medical history items have been selected or recorded. Family History: Colon cancer Grandparent Procedure history: Tubal ligation ([id number]). Dilation and curettage ([id number]). Social History Social & Psychosocial Habits Alcohol 03/09/2022 Use: Never Substance Abuse 03/09/2022 Use: Never Tobacco 03/09/2022 Tobacco Use: Never (less than 100 in l Home/Environment 03/09/2022 Domestic Concerns Denies Living situation: Home/Independent Lives In [facility] home Current Home Treatments None Special Services and Community Resources None Financial concerns: No Spouse Name Damein Marital Status of Patient if Patient Independent Adult: Nutrition/Health 03/09/2022 Type of diet: Regular Appetite Good Eating Difficulties None Enteral Feedings No TPN Feedings No Skin Breakdown/Decubitus Ulcers No Caffeine intake amount: Coffee- 1 serving . Physical Examination Vital Signs 03/09/2022 9:18 EST Temperature Temporal Artery 36.9 DegC Peripheral Pulse Rate 73 bpm Respiratory Rate 11 br/min Systolic Blood Pressure Non-Invasive 99 mmHg Diastolic Blood Pressure Non-Invasive 66 mmHg 03/09/2022 7:39 EST Temperature Oral 36.5 DegC Peripheral Pulse Rate 71 bpm Respiratory Rate 16 br/min Systolic Blood Pressure Non-Invasive 107 mmHg Diastolic Blood Pressure Non-Invasive 64 mmHg Reason For Taking VItal Signs Admission 03/09/2022 7:27 EST Peripheral Pulse Rate 78 bpm Respiratory Rate 16 br/min Systolic Blood Pressure Non-Invasive 107 mmHg Diastolic Blood Pressure Non-Invasive 58 mmHg LOW 03/09/2022 6:03 EST Peripheral Pulse Rate 82 bpm Respiratory Rate 16 br/min Systolic Blood Pressure Non-Invasive 105 mmHg Diastolic Blood Pressure Non-Invasive 73 mmHg Reason For Taking VItal Signs 5 min post antibiotic start time 03/09/2022 5:26 EST Peripheral Pulse Rate 88 bpm Respiratory Rate 18 br/min Systolic Blood Pressure Non-Invasive 120 mmHg Diastolic Blood Pressure Non-Invasive 72 mmHg Reason For Taking VItal Signs Pain assessment 03/09/2022 4:43 EST Temperature Oral 36.6 DegC Peripheral Pulse Rate 112 bpm HI Respiratory Rate 20 br/min Systolic Blood Pressure Non-Invasive 135 mmHg Diastolic Blood Pressure Non-Invasive 88 mmHg Blood Pressure Location Left arm Vital Signs(last 24 hrs) Last Charted Temp Oral36.5 DegC (MAR 09 07:39) Resp Rate C 11br/min (MAR 09:18) SBP99 mmHg (MAR 09:18) DBP66 mmHg (MAR 09:18) BMI21.29 (MAR 09:18) Measurements from flowsheet : Measurements 03/09/2022 9:18 EST Height 160 cm Admission Weight 54.5 kg [place] Body Weight 52.38 kg Body Mass Index 21.29 kg/m2 03/09/2022 7:40 EST Height 160.0 cm Height in inches 63 inch(es) Admission Weight 54.5 kg Weight Lbs 119.9 lb [place] Body Weight 52.38 kg BSA Admission 1.56 Body Mass Index 21.29 kg/m2 Pain assessment: Pain Assessment 03/09/2022 9:18 EST Primary Pain Location Abdomen Abdominal Pain Location LLQ, RLQ Primary Pain Laterality Bilateral Primary Pain Intensity 5 Primary Pain Time Pattern acute Primary Pain Quality Aching Pain Scale Type 0-10 Pain scale 03/09/2022 7:39 EST Primary Pain Location Abdomen Abdominal Pain Location LLQ, RLQ Primary Pain Laterality Bilateral Primary Pain Intensity 4 Primary Pain Time Pattern acute, constant Primary Pain Quality Aching Pain Scale Type 0-10 Pain scale 03/09/2022 7:27 EST Primary Pain Intensity 5 Pain Scale Type 0-10 Pain scale 03/09/2022 6:03 EST Primary Pain Intensity 3 Pain Scale Type 0-10 Pain scale 03/09/2022 5:26 EST Primary Pain Intensity 3 Pain Scale Type 0-10 Pain scale 03/09/2022 4:48 EST Primary Pain Intensity 10 03/09/2022 4:43 EST Primary Pain Location Abdomen Abdominal Pain Location LLQ, RLQ Primary Pain Laterality Lateral Primary Pain Intensity 10 Primary Pain Time Pattern acute, constant Primary Pain Onset Sudden Primary Pain Duration 0300 Primary Pain Quality Sharp Pain Scale Type 0-10 Pain scale . Review / Management Results review: Labs (Last four charted values) WBC 8.1(MAR 09) Hgb 14.4(MAR 09) Hct 42.1(MAR 09) Plt 281(MAR 09) Na 141(MAR 09) K 3.6(MAR 09) CO2 29(MAR 09) Cl 103(MAR 09) Cr 0.75(MAR 09) BUN 17(MAR 09) Glucose H 107(MAR 09) Ca 9.1(MAR 09) PT 12.5(MAR 09) INR 1.1(MAR 09) PTT 31.5(MAR 09) , Lab results 03/09/2022 9:18 EST Height 160 cm Admission Weight 54.5 kg [place] Body Weight 52.38 kg Body Mass Index 21.29 kg/m2 Temperature Temporal Artery 36.9 DegC Peripheral Pulse Rate 73 bpm Respiratory Rate 11 br/min Systolic Blood Pressure Non-Invasive 99 mmHg Diastolic Blood Pressure Non-Invasive 66 mmHg Primary Pain Location Abdomen Abdominal Pain Location LLQ, RLQ Primary Pain Laterality Bilateral Primary Pain Intensity 5 Primary Pain Time Pattern acute Primary Pain Quality Aching Pain Scale Type 0-10 Pain scale Heart Rhythm Regular Oxygen Therapy Room air Oxygen Saturation 100 % Belongings At Bedside Cell phone Personal Home Medications Received No home medications were brought in Standard Safety Safety level maintained 03/09/2022 9:14 EST Accompanied By Staff Nurse Out of Room Went to Current Location Surgery Transport via Bed 03/09/2022 9:13 EST IV Present Present Allergies No Patient Dressed In Hospital gown CHG Preoperative Wash/Wipe Day of procedure, Daily CHG bath NPO Status Maintained Patient ID Band on and Verified Yes 03/09/2022 8:19 EST Type of Pastoral Visit Initial visit Pastoral Care Referral From Other: rounds Pastoral Care Comments patient is add on for surgery and states no concerns for this; pt does welcome the support of presence and prayer; pt has recently renewed her confirmation and has been joined by spouse and children in the Muslim carla; Sacrament / Intervention Active listening, Carla exploration, Prayer Pastoral Care Visit Length 10 minute(s) Number Present During Pastoral Visit [address] [facility] Pastoral Care Note Form Pastoral Care Note Form 03/09/2022 8:02 EST Notify date/time 03/09/2022 8:02 Provider Notified EKTA ALVARENGA MD Notification Method Pager Information Communicated Nurse communication Details Communicated admission Activity Status ADL Awake, Repositions self Standard Safety Visitor at bedside, Safety level maintained High Risk Safety Door open, Room check performed 03/09/2022 7:54 EST Violence Risk Confused No Violence Risk Irritable No Violence Risk Boisterous No Violence Risk Verbal Threats No Violence Risk Physical Threats No Violence Risk Attacking Objects No Violence Risk Predictor Score 0 Violence Risk Intervention None Violence Risk Current Interventions None Able To Drink Order Detail No Able To Sign Consents Order Detail Yes Code Status Order Detail Full code IV Order Detail Yes Dialysis Schedule Order Detail N/A Has Diabetes Order Detail No Isolation Precautions Order Detail None Nurse Collect Order Detail 0 Oxygen Order Detail No Order Detail No Prior Valve Replacement Order Detail No Transport Mode Order Detail 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 Worry Food Run Out, No Money Never true Past 12 Mo. 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 Worry Food Run Out, No Money Never true Past 12 Mo. Food Bought Ran Out,No Money Never true Past 12 Mo. Lack Reliable Transportation No Past 12 Mo. Utilites Threatened Shut Off No How Often Anyone Physically Hurts You Never How Often Insulted or Talked Down To Never How Often Threatened With Harm Never How Often Screamed Or Cursed At You Never HRSN Screening Tool Safety Score 4 LACE Length of Stay >1 day LACE Acute Admission Observation LACE ED Visits 1 LACE CoMorbidity Score 0 LACE Score 2 Health-Related Screening Tool Health-Related Screening Tool Readmission Risk Screening Note Readmission Risk Screening 03/09/2022 7:40 EST Designated Person #1 We May Share BEKA Jimenez Designated Person #1 Relationship Spouse Privacy Restrictions Requested None Height 160.0 cm Height in inches 63 inch(es) Admission Weight 54.5 kg Weight Lbs 119.9 lb [place] Body Weight 52.38 kg BSA Admission 1.56 Body Mass Index 21.29 kg/m2 Patient Type Inpatient Thrombosis Risk Factors NA Thrombosis Risk Factor Add'l Assessment NA Thrombosis Risk Score 0 Status No, per patient Do You Wish/Go to Sleep/Never Wake Up No Thoughts of Harming Others - History No Thoughts of Suicide - History No Hospital Clergy to Visit Patient Verbalizes No Spiritual Needs Sensory Deficits None Advanced Directives No - refuses information Infectious Disease Symptoms Patient states no symptoms Infectious Disease Recent Exposure No Alcohol and Drug Use No Employee of Institutional Living No Health Care Employee No History of Exposure to TB No History of Positive Chest X-Ray for TB No History of Positive TB Skin Test No Homeless No Known Immunosuppression No Recent Immigrant No Resident of Institutional Living No Bloody Sputum No Fatigue No Fever No Loss of Appetite No Night Sweats No Persistent Cough > 3 Weeks No Weight Loss No Safety Brochure Information Reviewed Yes [employer] Video Viewed No Barriers to Learning None evident Teaching Method Explanation Teaching Evaluation Verbalizes/Nonverbally indicates understanding Preferred Written Language Palauan Preferred Spoken Language Palauan Information Given by Patient Patient's Current Physicians Patient's Current Physicians Belongings At Bedside Cell phone, Coat, Pants, Shirt, Shoes, Undergarments, Wallet Personal Home Medications Received No home medications were brought in Belongings Sent Home None Belongings Sent To Security None Discharge To, Anticipated Home with family care Prev Test Positive/Diagnosis w/COVID-19 Yes Previous COVID-19 Positive Date 2020 Current Quarantine/Isolated any Illness No Any Contact with Sick Animals/Birds No Traveled Anywhere in Last 30 Days No Lost Weight Unintentionally Recently No Eat Poorly Due to Decreased Appetite No Total MST Score 0 Yes Personal Devices, Patient Valuables None Admission Note-Nursing Patient History 03/09/2022 7:39 EST Temperature Oral 36.5 DegC Peripheral Pulse Rate 71 bpm Respiratory Rate 16 br/min Systolic Blood Pressure Non-Invasive 107 mmHg Diastolic Blood Pressure Non-Invasive 64 mmHg Reason For Taking VItal Signs Admission Primary Pain Location Abdomen Abdominal Pain Location LLQ, RLQ Primary Pain Laterality Bilateral Primary Pain Intensity 4 Primary Pain Time Pattern acute, constant Primary Pain Quality Aching Pain Scale Type 0-10 Pain scale Nail Bed Color Glenn Capillary Refill < 2 seconds Heart Rhythm Regular Dorsalis Pedis Pulse, Left 2+ Normal Dorsalis Pedis Pulse, Right 2+ Normal Respirations Unlabored Respiratory Pattern Regular Breath Sounds Auscultated Anterior only All Lobes Breath Sounds Clear Cough None Oxygen Therapy Room air Oxygen Saturation 96 % Abdomen Description Non-distended, Symmetric, Soft Abdomen Palpation Tender Abdomen Tender LLQ, RLQ Passing Flatus Yes Bowel Movement Last Date 03/08/2022 Swallowing Disorder None Bowel Sounds All Quadrants Present Urinary Elimination Voiding, no difficulties All Extremity Description Glenn, Normal for ethnicity Skin Temperature Warm Temperature All Extremities Warm Skin Description Pale Skin Integrity Intact Skin Turgor Elastic Mucous Membrane Color Glenn Mucous Membrane Description Moist Sensory Perception Colten No impairment Moisture Colten Rarely moist Activity Colten Walks frequently Mobility Colten No limitations Nutrition Colten Adequate Friction and Shear Colten No apparent problem Colten Score 22 Hospital Acquired Pressure Injury Risk None/minimal risk (score 19-23) Antecubital Right 03/09/2022 18 gauge Peripheral IV Activity: Assessed Peripheral IV Dressing Condition: Clean, Dry, Intact Peripheral IV Dressing Activity: Transparent dressing Peripheral IV Line Care: Secured with tape Peripheral IV Site Condition: No complications Peripheral IV Equipment: PRN Adaptor Neurological Language Able to speak clearly, Follows simple commands Neurological Symptoms Patient denies Gait Steady Extremity Movement Equal Swallowing Difficulty None Characteristics of Communication Appropriate Characteristics of Speech Clear Level of Consciousness Alert Strength All Extremities Strong Tone All Extremities Normal Sensation All Extremities Intact Catalan Screen Daily History of Fall in Last 3 Months Catalan No Presence of Secondary Diagnosis Catalan No Use of Ambulatory Aid Catalan None, bedrest, wheelchair, nurse IV/PRN Adapter Fall Risk Catalan Yes Gait Weak or Impaired Fall Risk Catalan Normal, bedrest, immobile Mental Status Fall Risk Catalan Oriented to own ability Catalan Fall Risk Score 20 Affect/Behavior Appropriate, Calm, Cooperative Appearance Clean Orientation Oriented x 4 Activity Status ADL Awake, Repositions self Standard Safety ID band on, Call device within reach, Bed in low position, Wheels locked, Upper/Half-Length side-rails up, Phone within reach, personal items within reach, Safety level maintained High Risk Safety Door open, Room check performed Demonstrates Correct Call Light Use Yes 03/09/2022 7:29 EST Able To Drink Order Detail No Able To Sign Consents Order Detail Yes Code Status Order Detail Full code IV Order Detail Yes Dialysis Schedule Order Detail N/A Has Diabetes Order Detail No Isolation Precautions Order Detail None Nurse Collect Order Detail 0 Oxygen Order Detail No Order Detail No Prior Valve Replacement Order Detail No Transport Mode Order Detail Wheelchair and Nurse [employer] 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 Details Form [employer] Black Trainer Details Form 03/09/2022 7:28 EST Belongings At Bedside Cell phone, Coat, Pants, Shirt, Shoes, T-shirt, Undergarments, Wallet Belongings At Bedside Not Done: Task Duplication (Not Done) Personal Home Medications Received No home medications were brought in Personal Home Medications Received Not Done: Task Duplication (Not Done) Belongings Sent Home None Belongings Sent Home Not Done: Task Duplication (Not Done) Belongings Sent To Security None Belongings Sent To Security Not Done: Task Duplication (Not Done) ED Valuables and Belongings Form Not Done (Not Done) ED Valuables and Belongings Form ED Valuables and Belongings Form 03/09/2022 7:27 EST Peripheral Pulse Rate 78 bpm Respiratory Rate 16 br/min Systolic Blood Pressure Non-Invasive 107 mmHg Diastolic Blood Pressure Non-Invasive 58 mmHg LOW Primary Pain Intensity 5 Pain Scale Type 0-10 Pain scale Nail Bed Color Glenn Capillary Refill < 2 seconds Respirations Unlabored Respiratory Pattern Regular Oxygen Therapy Room air Oxygen Saturation 98 % Level of Consciousness Alert Violence Risk Confused No Violence Risk Irritable No Violence Risk Boisterous No Violence Risk Verbal Threats No Violence Risk Physical Threats No Violence Risk Attacking Objects No Violence Risk Predictor Score 0 Affect/Behavior Appropriate, Calm, Cooperative Appearance Clean Orientation Oriented x 4 Transport via Wheelchair Nursing Unit [facility] Standard Safety ID band on, Call device within reach, Bed in low position, Wheels locked, Upper/Half-Length side-rails up, personal items within reach 03/09/2022 6:56 EST Nurse Giving Report Contact Number HUANG Davis. Nurse Receiving Report HUANG Messer Date/Time Nurse Received Report 03/09/2022 6:56 Nursing Unit [facility] 03/09/2022 6:38 EST Patient Information Note Surgery given patient information 03/09/2022 6:35 EST Patient Information Note Per Dr. Alvarenga patient to now go to the MS floor prior to surgery. Per MS patient cannot be transported to the floor until after 0730. Patient updated on plan of care 03/09/2022 6:31 EST Heparin dose (APTT) Unknown APTT 31.5 seconds Protime 12.5 seconds PT International Ratio 1.1 ratio ABO/Rh Interp B POS Antibody Screen Gel Negative ABSC 03/09/2022 6:15 EST Nurse Giving Report Contact Number Susan, HUANG Nurse Receiving Report RENAY Esposito updated on plan of care Date/Time Nurse Received Report 03/09/2022 6:15 Nursing Unit [facility] 03/09/2022 6:03 EST Peripheral Pulse Rate 82 bpm Respiratory Rate 16 br/min Systolic Blood Pressure Non-Invasive 105 mmHg Diastolic Blood Pressure Non-Invasive 73 mmHg Reason For Taking VItal Signs 5 min post antibiotic start time Primary Pain Intensity 3 Pain Scale Type 0-10 Pain scale Monitor Alarms On and Limits Checked Heart Rhythm Regular Oxygen Therapy Room air Oxygen Saturation 99 % 03/09/2022 5:58 EST cefOXitin 2 gram(s) gram(s) Sodium Chloride 0.9% 100 mL mL 03/09/2022 5:[address] Abd/Pelvis w/ IV Contrast Only CT ABD/PELVIS W/ IV CONTRAST ONLY 03/09/2022 5:26 EST Peripheral Pulse Rate 88 bpm Respiratory Rate 18 br/min Systolic Blood Pressure Non-Invasive 120 mmHg Diastolic Blood Pressure Non-Invasive 72 mmHg Reason For Taking VItal Signs Pain assessment Primary Pain Intensity 3 Pain Scale Type 0-10 Pain scale Oxygen Therapy Room air Oxygen Saturation 99 % 03/09/2022 5:00 EST Status PAP Smear N/A Antecubital Right 03/09/2022 18 gauge Peripheral IV Activity: Insert new site Peripheral IV Dressing Condition: Clean, Dry, Intact Peripheral IV Dressing Activity: Applied, Transparent dressing Peripheral IV Line Status/Patency: Flushes easily, 3ml normal saline flush, Good blood return Peripheral IV Site Condition: No complications Peripheral IV Equipment: IV Pump, PRN Adaptor Peripheral IV Number of Attempts: 1 History of Fall in Last 3 Months Catalan No Thoughts of Harming Others - History No Thoughts of Harming Yourself - History Patient denies over the past six (6) months or longer Domestic Concerns Denies Advanced Directives No - refuses information Individuals Taught Patient Learning Readiness Willing to learn Barriers to Learning None evident Teaching Method Demonstration, Explanation Teaching Evaluation Returns demonstrations correctly, Verbalizes/Nonverbally indicates understanding, No further teaching needed Preferred Written Language Palauan Family/Caregiver Prefer Written Language Palauan Preferred Spoken Language Palauan Family/Caregiver Prefer Spoken Language Palauan Chief Complaint Arrives from home with c/o lower bilateral sharp abdominal pain that woke her up at 0300 this morning. Patient is 6 months pp. Reports having her tubes removed at time of Place Where Injury/Illness Occurred Home Information Given by Patient Belongings At Bedside Discharged with patient Personal Home Medications Received No home medications were brought in Belongings Sent Home None Belongings Sent To Security None Anticoagulants Taken In Past 6 Wks. No Participates in Clinical Trial N/A Yes Anesthesia/Transfusions Prior anesthesia ED Assessment Note - Nursing ED Patient History Form 03/09/2022 4:48 EST Primary Pain Intensity 10 ketorolac 15 mg mg Sodium Chloride 0.9% 500 mL mL 03/09/2022 4:43 EST Temperature Oral 36.6 DegC Peripheral Pulse Rate 112 bpm HI Respiratory Rate 20 br/min Systolic Blood Pressure Non-Invasive 135 mmHg Diastolic Blood Pressure Non-Invasive 88 mmHg Blood Pressure Location Left arm Primary Pain Location Abdomen Abdominal Pain Location LLQ, RLQ Primary Pain Laterality Lateral Primary Pain Intensity 10 Primary Pain Time Pattern acute, constant Primary Pain Onset Sudden Primary Pain Duration 0300 Primary Pain Quality Sharp Pain Scale Type 0-10 Pain scale LISE Level 1 No LISE Level 2 No LISE Level 3 Many Vital Signs LISE No Recommended LISE Level 3 Nail Bed Color Glenn Capillary Refill < 2 seconds Respirations Unlabored Respiratory Pattern Regular All Lobes Breath Sounds Clear Cough None Oxygen Therapy Room air Oxygen Saturation 100 % Abdomen Description Non-distended, Symmetric, Soft Abdomen Palpation Tender Abdomen Tender All quadrants Bowel Sounds All Quadrants Present Urinary Elimination Voiding, no difficulties Skin Temperature Warm Skin Description Pale Skin Integrity Intact Skin Turgor Elastic Neurological Symptoms Patient denies Level of Consciousness Alert Loss of Consciousness No Eye Opening Response Mary Lou Spontaneously Best Motor Response [place] Obeys simple commands Best Verbal Response Mary Lou Oriented Mary Lou Coma Score 15 CHARLES Yes Strength All Extremities Strong Tone All Extremities Normal Sensation All Extremities Intact Catalan 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 History of Fall in Last 3 Months Catalan No Presence of Secondary Diagnosis Catalan No Use of Ambulatory Aid Catalan None, bedrest, wheelchair, nurse IV/PRN Adapter Fall Risk Catalan Yes Gait Weak or Impaired Fall Risk Catalan Normal, bedrest, immobile Mental Status Fall Risk Catalan Oriented to own ability Catalan Fall Risk Score 20 Violence Risk Confused No Violence Risk Irritable No Violence Risk Boisterous No Violence Risk Verbal Threats No Violence Risk Physical Threats No Violence Risk Attacking Objects No Violence Risk Predictor Score 0 Affect/Behavior Cooperative, Tearful, Restless Appearance Clean, Well groomed, Attire appropriate, Neat Orientation Oriented x 4 Wish To Be No Suicidal Thoughts No Ever Made Plans to End Your Life No Suicide Severity Rating No problems noted Infectious Disease Symptoms Patient states no symptoms Infectious Disease Recent Exposure No Alcohol and Drug Use No Employee of Institutional Living No Health Care Employee No History of Exposure to TB No History of Positive Chest X-Ray for TB No History of Positive TB Skin Test No Homeless No Known Immunosuppression No Recent Immigrant No Resident of Institutional Living No Bloody Sputum No Fatigue No Fever No Loss of Appetite No Night Sweats No Persistent Cough > 3 Weeks No Weight Loss No Preferred Written Language Palauan Preferred Spoken Language Palauan Tracking Group ED AO Tracking Group Tracking Acuity 3 Mode of Transfer Private vehicle Standard Safety ID band on, Call device within reach, Bed in low position, Wheels locked, Upper/Half-Length side-rails up, Phone within reach, personal items within reach, Bedside Cart Locked Prev Test Positive/Diagnosis w/COVID-19 No Current Quarantine/Isolated any Illness No Any Contact with Sick Animals/Birds No Traveled Anywhere in Last 30 Days No ED Triage Adults ED Triage Adults 03/09/2022 4:38 EST WBC 8.1 10^3/mcL RBC 4.72 10^6/mcL Hgb 14.4 G/dL Hct 42.1 % MCV 89.1 fL MCH 30.5 pg MCHC 34.2 G/dL RDW 12.6 % Platelet 281 10^3/mcL MPV 7.3 fL LOW Monocyte Distribution Width 15.84 Neutrophil % 43.7 % Lymphocyte % 38.7 % Monocyte % 7.4 % Eosinophil % 7.9 % HI Basophil % 2.3 % Neutrophil, Absolute 3.5 10^3/mcL Lymphocyte, Absolute 3.1 10^3/mcL Monocyte, Absolute 0.6 10^3/mcL Eosinophil, Absolute 0.6 10^3/mcL HI Basophil, Absolute 0.2 10^3/mcL UA Specimen Type Clean Catch UA Color Yellow UA Appear Clear UA Spec Grav >=1.030 UA Glucose Negative mg/dL UA Bili Negative UA Ketones Negative mg/dL UA Blood Trace UA pH 5.5 UA Protein Negative mg/dL UA Urobilinogen 0.2 E.U./dL UA Nitrite Negative UA Leuk Est Trace UA RBC None Seen /HPF UA WBC 0-5 /HPF UA Squam Epithelial 0-5 /HPF Test Urine Negative test (u) int test (u) int Glucose Level 107 mg/dL HI Sodium Level 141 mmol/L Potassium Level 3.6 mmol/L Chloride 103 mmol/L CO2 29 mmol/L Electrolyte Balance 9.0 mEq/L BUN 17 mg/dL Creatinine Lvl (s) 0.75 mg/dL BUN/Creatinine Ratio 23 ratio Calcium Lvl 9.1 mg/dL Total Protein 7.5 G/dL Albumin Level 4.3 G/dL Globulin 3.2 G/dL NA A/G Ratio 1.3 ratio Bili Total 0.5 mg/dL Alk Phos 78 U/L AST/SGOT 19 U/L ALT/SGPT 22 U/L GFR Non- 96 ml/min/1.73sqm NA GFR 116 ml/min/1.73sqm NA Lipase Level 50 U/L QC PRGUN Negative QC PRGUP Positive 03/09/2022 4:32 [facility] Emergency Room Note General Medical Problem *ED . Assessment and Plan [place] [employer] (ASA) physical status classification: Class II. Anesthetic Preoperative Plan Anesthetic technique: General. Maintenance airway: Oral endotracheal tube. Postoperative pain management: Per surgeon. Risks discussed: nausea, vomiting, sore throat, dental injury, hypotension, allergic reaction, serious complications. Informed consent: signed by patient. Digitally Signed by RAIZA MCGRATH on 03/09/2022 09:27 AM [facility] Clinical Note 03-09-2022 Note Date & Type Note Facility 03-09-2022 Note ORIGINAL EXAMINATION: CT OF THE ABDOMEN AND PELVIS WITH CONTRAST 03/09/2022 5:31 am TECHNIQUE: CT of the abdomen and pelvis was performed with the administration of intravenous contrast. Multiplanar reformatted images are provided for review. Automated exposure control, iterative reconstruction, and/or weight based adjustment of the mA/kV was utilized to reduce the radiation dose to as low as reasonably achievable. COMPARISON: None. HISTORY: ORDERING SYSTEM PROVIDED HISTORY: Reason for Exam: pain FINDINGS: Lower Chest: No acute findings. Organs: The liver, pancreas, spleen, adrenal glands, kidneys, and ureters show no sign of abnormality. GI/Bowel: The stomach and duodenum are unremarkable. In the distal small intestine there are several loops of fluid-filled small intestine without dilatation. These are mostly located in the pelvis. The appendix is mildly thickened (8 mm) and moderately inflamed. The appendix is identified in the right side of the pelvis posterior to the right external iliac vein (image 82 of series 2. No abscess or free intraperitoneal air is present. There is no obstruction or inflammation of the colon. Pelvis: Urinary bladder is partly distended. Uterus and adnexal structures are unremarkable. There is a small amount of free fluid in the pelvis. Peritoneum/Retroperitoneum: Abdominal aorta is nonaneurysmal. No retroperitoneal lymph node enlargement is present. Bones/Soft Tissues: No acute findings. IMPRESSION: Acute appendicitis. There is associated ileus in the distal small intestine. No abscess or free intraperitoneal air. Interpreted by: Sanket Cuevas MD Preliminary Report By: Sanket Cuevas MD Electronically signed By Sanket Cuevas MD Dictated Date: 03/09/2022 5:34:08 AM Prelim Date: 03/09/2022 5:43:39 AM Sign Date: 03/09/2022 5:43:39 AM Ordering Provider: [facility] Clinical Note 03-09-2022 Note Date & Type Note Facility 03-09-2022 Note ORIGINAL EXAMINATION: CT OF THE ABDOMEN AND PELVIS WITH CONTRAST 03/09/2022 5:31 am TECHNIQUE: CT of the abdomen and pelvis was performed with the administration of intravenous contrast. Multiplanar reformatted images are provided for review. Automated exposure control, iterative reconstruction, and/or weight based adjustment of the mA/kV was utilized to reduce the radiation dose to as low as reasonably achievable. COMPARISON: None. HISTORY: ORDERING SYSTEM PROVIDED HISTORY: Reason for Exam: pain FINDINGS: Lower Chest: No acute findings. Organs: The liver, pancreas, spleen, adrenal glands, kidneys, and ureters show no sign of abnormality. GI/Bowel: The stomach and duodenum are unremarkable. In the distal small intestine there are several loops of fluid-filled small intestine without dilatation. These are mostly located in the pelvis. The appendix is mildly thickened (8 mm) and moderately inflamed. The appendix is identified in the right side of the pelvis posterior to the right external iliac vein (image 82 of series 2. No abscess or free intraperitoneal air is present. There is no obstruction or inflammation of the colon. Pelvis: Urinary bladder is partly distended. Uterus and adnexal structures are unremarkable. There is a small amount of free fluid in the pelvis. Peritoneum/Retroperitoneum: Abdominal aorta is nonaneurysmal. No retroperitoneal lymph node enlargement is present. Bones/Soft Tissues: No acute findings. IMPRESSION: Acute appendicitis. There is associated ileus in the distal small intestine. No abscess or free intraperitoneal air. Interpreted by: Sanket Cuevas MD Preliminary Report By: Sanket Cuevas MD Electronically signed By Sanket Cuevas MD Dictated Date: 03/09/2022 5:34:08 AM Prelim Date: 03/09/2022 5:43:39 AM Sign Date: 03/09/2022 5:43:39 AM Ordering Provider: [facility] Anesthesiology Consult note Note Date & Type Note Facility Anesthesiology Consult note RAIZA MCGRATH: PERFORM, SIGN, VERIFY Event Display: Anesthesiology Consultation Authored Date: [id number] Patient: AMIE JIMENEZ Age: 21 years Sex: Female : 2000 Associated Diagnoses: None Author: RAIZA MCGRATH Preoperative Information Anesthesia history Patient's history: negative. Family's history: negative. Health Status Allergies: Allergic Reactions (Selected) NKA, Allergies (1) ActiveReaction NKANone Documented Current medications: (Selected) Documented Medications Documented sertraline 50 mg oral tablet: 50 mg, 1 tab(s), Oral, Daily, 0 Refill(s), No qualifying data available Problem list: Active Problems (1) History of D&C Histories Past Medical History: No active or resolved past medical history items have been selected or recorded. Family History: Colon cancer Grandparent Procedure history: Tubal ligation ([id number]). Dilation and curettage ([id number]). Social History Social & Psychosocial Habits Alcohol 03/09/2022 Use: Never Substance Abuse 03/09/2022 Use: Never Tobacco 03/09/2022 Tobacco Use: Never (less than 100 in l Home/Environment 03/09/2022 Domestic Concerns Denies Living situation: Home/Independent Lives In Multilevel home Current Home Treatments None Special Services and Community Resources None Financial concerns: No Spouse Name Damein Marital Status of Patient if Patient Independent Adult: Nutrition/Health 03/09/2022 Type of diet: Regular Appetite Good Eating Difficulties None Enteral Feedings No TPN Feedings No Skin Breakdown/Decubitus Ulcers No Caffeine intake amount: Coffee- 1 serving . Physical Examination Vital Signs 03/09/2022 9:18 EST Temperature Temporal Artery 36.9 DegC Peripheral Pulse Rate 73 bpm Respiratory Rate 11 br/min <LLOW Systolic Blood Pressure Non-Invasive 99 mmHg Diastolic Blood Pressure Non-Invasive 66 mmHg 03/09/2022 7:39 EST Temperature Oral 36.5 DegC Peripheral Pulse Rate 71 bpm Respiratory Rate 16 br/min Systolic Blood Pressure Non-Invasive 107 mmHg Diastolic Blood Pressure Non-Invasive 64 mmHg Reason For Taking VItal Signs Admission 03/09/2022 7:27 EST Peripheral Pulse Rate 78 bpm Respiratory Rate 16 br/min Systolic Blood Pressure Non-Invasive 107 mmHg Diastolic Blood Pressure Non-Invasive 58 mmHg LOW 03/09/2022 6:03 EST Peripheral Pulse Rate 82 bpm Respiratory Rate 16 br/min Systolic Blood Pressure Non-Invasive 105 mmHg Diastolic Blood Pressure Non-Invasive 73 mmHg Reason For Taking VItal Signs 5 min post antibiotic start time 03/09/2022 5:26 EST Peripheral Pulse Rate 88 bpm Respiratory Rate 18 br/min Systolic Blood Pressure Non-Invasive 120 mmHg Diastolic Blood Pressure Non-Invasive 72 mmHg Reason For Taking VItal Signs Pain assessment 03/09/2022 4:43 EST Temperature Oral 36.6 DegC Peripheral Pulse Rate 112 bpm HI Respiratory Rate 20 br/min Systolic Blood Pressure Non-Invasive 135 mmHg Diastolic Blood Pressure Non-Invasive 88 mmHg Blood Pressure Location Left arm Vital Signs(last 24 hrs) Last Charted Temp Oral36.5 DegC (MAR 09 07:39) Resp Rate C 11br/min (MAR 09 09:18) SBP99 mmHg (MAR 09 09:18) DBP66 mmHg (MAR 09:18) BMI21.29 (MAR 09:18) Measurements from flowsheet : Measurements 03/09/2022 9:18 EST Height 160 cm Admission Weight 54.5 kg [place] Body Weight 52.38 kg Body Mass Index 21.29 kg/m2 03/09/2022 7:40 EST Height 160.0 cm Height in inches 63 inch(es) Admission Weight 54.5 kg Weight Lbs 119.9 lb [place] Body Weight 52.38 kg BSA Admission 1.56 Body Mass Index 21.29 kg/m2 Pain assessment: Pain Assessment 03/09/2022 9:18 EST Primary Pain Location Abdomen Abdominal Pain Location LLQ, RLQ Primary Pain Laterality Bilateral Primary Pain Intensity 5 Primary Pain Time Pattern acute Primary Pain Quality Aching Pain Scale Type 0-10 Pain scale 03/09/2022 7:39 EST Primary Pain Location Abdomen Abdominal Pain Location LLQ, RLQ Primary Pain Laterality Bilateral Primary Pain Intensity 4 Primary Pain Time Pattern acute, constant Primary Pain Quality Aching Pain Scale Type 0-10 Pain scale 03/09/2022 7:27 EST Primary Pain Intensity 5 Pain Scale Type 0-10 Pain scale 03/09/2022 6:03 EST Primary Pain Intensity 3 Pain Scale Type 0-10 Pain scale 03/09/2022 5:26 EST Primary Pain Intensity 3 Pain Scale Type 0-10 Pain scale 03/09/2022 4:48 EST Primary Pain Intensity 10 03/09/2022 4:43 EST Primary Pain Location Abdomen Abdominal Pain Location LLQ, RLQ Primary Pain Laterality Lateral Primary Pain Intensity 10 Primary Pain Time Pattern acute, constant Primary Pain Onset Sudden Primary Pain Duration 0300 Primary Pain Quality Sharp Pain Scale Type 0-10 Pain scale . Review / Management Results review: Labs (Last four charted values) WBC 8.1(MAR 09) Hgb 14.4(MAR 09) Hct 42.1(MAR 09) Plt 281(MAR 09) Na 141(MAR 09) K 3.6(MAR 09) CO2 29(MAR 09) Cl 103(MAR 09) Cr 0.75(MAR 09) BUN 17(MAR 09) Glucose H 107(MAR 09) Ca 9.1(MAR 09) PT 12.5(MAR 09) INR 1.1(MAR 09) PTT 31.5(MAR 09) , Lab results 03/09/2022 9:18 EST Height 160 cm Admission Weight 54.5 kg [place] Body Weight 52.38 kg Body Mass Index 21.29 kg/m2 Temperature Temporal Artery 36.9 DegC Peripheral Pulse Rate 73 bpm Respiratory Rate 11 br/min <LLOW Systolic Blood Pressure Non-Invasive 99 mmHg Diastolic Blood Pressure Non-Invasive 66 mmHg Primary Pain Location Abdomen Abdominal Pain Location LLQ, RLQ Primary Pain Laterality Bilateral Primary Pain Intensity 5 Primary Pain Time Pattern acute Primary Pain Quality Aching Pain Scale Type 0-10 Pain scale Heart Rhythm Regular Oxygen Therapy Room air Oxygen Saturation 100 % Belongings At Bedside Cell phone Personal Home Medications Received No home medications were brought in Standard Safety Safety level maintained 03/09/2022 9:14 EST Accompanied By Staff Nurse Out of Room Went to Current Location Surgery Transport via Bed 03/09/2022 9:13 EST IV Present Present Allergies No Patient Dressed In Hospital gown CHG Preoperative Wash/Wipe Day of procedure, Daily CHG bath NPO Status Maintained Patient ID Band on and Verified Yes 03/09/2022 8:19 EST Type of Pastoral Visit Initial visit Pastoral Care Referral From Other: rounds Pastoral Care Comments patient is add on for surgery and states no concerns for this; pt does welcome the support of presence and prayer; pt has recently renewed her confirmation and has been joined by spouse and children in the Muslim carla; Sacrament / Intervention Active listening, Carla exploration, Prayer Pastoral Care Visit Length 10 minute(s) Number Present During Pastoral Visit 1 [facility]ism [facility] Pastoral Care Note Form Pastoral Care Note Form 03/09/2022 8:02 EST Notify date/time 03/09/2022 8:02 Provider Notified EKTA ALVARENGA MD Notification Method Pager Information Communicated Nurse communication Details Communicated admission Activity Status ADL Awake, Repositions self Standard Safety Visitor at bedside, Safety level maintained High Risk Safety Door open, Room check performed 03/09/2022 7:54 EST Violence Risk Confused No Violence Risk Irritable No Violence Risk Boisterous No Violence Risk Verbal Threats No Violence Risk Physical Threats No Violence Risk Attacking Objects No Violence Risk Predictor Score 0 Violence Risk Intervention None Violence Risk Current Interventions None Able To Drink Order Detail No Able To Sign Consents Order Detail Yes Code Status Order Detail Full code IV Order Detail Yes Dialysis Schedule Order Detail N/A Has Diabetes Order Detail No Isolation Precautions Order Detail None Nurse Collect Order Detail 0 Oxygen Order Detail No Order Detail No Prior Valve Replacement Order Detail No Transport Mode Order Detail 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 Worry Food Run Out, No Money Never true Past 12 Mo. 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 Worry Food Run Out, No Money Never true Past 12 Mo. Food Bought Ran Out,No Money Never true Past 12 Mo. Lack Reliable Transportation No Past 12 Mo. Utilites Threatened Shut Off No How Often Anyone Physically Hurts You Never How Often Insulted or Talked Down To Never How Often Threatened With Harm Never How Often Screamed Or Cursed At You Never HRSN Screening Tool Safety Score 4 LACE Length of Stay >1 day LACE Acute Admission Observation LACE ED Visits 1 LACE CoMorbidity Score 0 LACE Score 2 Health-Related Screening Tool Health-Related Screening Tool Readmission Risk Screening Note Readmission Risk Screening 03/09/2022 7:40 EST Designated Person #1 We May Share PHI Bernie Jimenez Designated Person #1 Relationship Spouse Privacy Restrictions Requested None Height 160.0 cm Height in inches 63 inch(es) Admission Weight 54.5 kg Weight Lbs 119.9 lb [place] Body Weight 52.38 kg BSA Admission 1.56 Body Mass Index 21.29 kg/m2 Patient Type Inpatient Thrombosis Risk Factors NA Thrombosis Risk Factor Add'l Assessment NA Thrombosis Risk Score 0 Status No, per patient Do You Wish/Go to Sleep/Never Wake Up No Thoughts of Harming Others - History No Thoughts of Suicide - History No Hospital Clergy to Visit Patient Verbalizes No Spiritual Needs Sensory Deficits None Advanced Directives No - refuses information Infectious Disease Symptoms Patient states no symptoms Infectious Disease Recent Exposure No Alcohol and Drug Use No Employee of Institutional Living No Health Care Employee No History of Exposure to TB No History of Positive Chest X-Ray for TB No History of Positive TB Skin Test No Homeless No Known Immunosuppression No Recent Immigrant No Resident of Institutional Living No Bloody Sputum No Fatigue No Fever No Loss of Appetite No Night Sweats No Persistent Cough > 3 Weeks No Weight Loss No Safety Brochure Information Reviewed Yes Sivakumar Welcome Video Viewed No Barriers to Learning None evident Teaching Method Explanation Teaching Evaluation Verbalizes/Nonverbally indicates understanding Preferred Written Language Palauan Preferred Spoken Language Palauan Information Given by Patient Patient's Current Physicians Patient's Current Physicians Belongings At Bedside Cell phone, Coat, Pants, Shirt, Shoes, Undergarments, Wallet Personal Home Medications Received No home medications were brought in Belongings Sent Home None Belongings Sent To Security None Discharge To, Anticipated Home with family care Prev Test Positive/Diagnosis w/COVID-19 Yes Previous COVID-19 Positive Date 2020 Current Quarantine/Isolated any Illness No Any Contact with Sick Animals/Birds No Traveled Anywhere in Last 30 Days No Lost Weight Unintentionally Recently No Eat Poorly Due to Decreased Appetite No Total MST Score 0 Yes Personal Devices, Patient Valuables None Admission Note-Nursing Patient History 03/09/2022 7:39 EST Temperature Oral 36.5 DegC Peripheral Pulse Rate 71 bpm Respiratory Rate 16 br/min Systolic Blood Pressure Non-Invasive 107 mmHg Diastolic Blood Pressure Non-Invasive 64 mmHg Reason For Taking VItal Signs Admission Primary Pain Location Abdomen Abdominal Pain Location LLQ, RLQ Primary Pain Laterality Bilateral Primary Pain Intensity 4 Primary Pain Time Pattern acute, constant Primary Pain Quality Aching Pain Scale Type 0-10 Pain scale Nail Bed Color Glenn Capillary Refill < 2 seconds Heart Rhythm Regular Dorsalis Pedis Pulse, Left 2+ Normal Dorsalis Pedis Pulse, Right 2+ Normal Respirations Unlabored Respiratory Pattern Regular Breath Sounds Auscultated Anterior only All Lobes Breath Sounds Clear Cough None Oxygen Therapy Room air Oxygen Saturation 96 % Abdomen Description Non-distended, Symmetric, Soft Abdomen Palpation Tender Abdomen Tender LLQ, RLQ Passing Flatus Yes Bowel Movement Last Date 03/08/2022 Swallowing Disorder None Bowel Sounds All Quadrants Present Urinary Elimination Voiding, no difficulties All Extremity Description Glenn, Normal for ethnicity Skin Temperature Warm Temperature All Extremities Warm Skin Description Pale Skin Integrity Intact Skin Turgor Elastic Mucous Membrane Color Glenn Mucous Membrane Description Moist Sensory Perception Colten No impairment Moisture Colten Rarely moist Activity Colten Walks frequently Mobility Colten No limitations Nutrition Colten Adequate Friction and Shear Colten No apparent problem Colten Score [facility] Acquired Pressure Injury Risk None/minimal risk (score 19-23) Antecubital Right 03/09/2022 18 gauge Peripheral IV Activity: Assessed Peripheral IV Dressing Condition: Clean, Dry, Intact Peripheral IV Dressing Activity: Transparent dressing Peripheral IV Line Care: Secured with tape Peripheral IV Site Condition: No complications Peripheral IV Equipment: PRN Adaptor Neurological Language Able to speak clearly, Follows simple commands Neurological Symptoms Patient denies Gait Steady Extremity Movement Equal Swallowing Difficulty None Characteristics of Communication Appropriate Characteristics of Speech Clear Level of Consciousness Alert Strength All Extremities Strong Tone All Extremities Normal Sensation All Extremities Intact Catalan Screen Daily History of Fall in Last 3 Months Catalan No Presence of Secondary Diagnosis Catalan No Use of Ambulatory Aid Catalan None, bedrest, wheelchair, nurse IV/PRN Adapter Fall Risk Catalan Yes Gait Weak or Impaired Fall Risk Catalan Normal, bedrest, immobile Mental Status Fall Risk Catalan Oriented to own ability Catalan Fall Risk Score 20 Affect/Behavior Appropriate, Calm, Cooperative Appearance Clean Orientation Oriented x 4 Activity Status ADL Awake, Repositions self Standard Safety ID band on, Call device within reach, Bed in low position, Wheels locked, Upper/Half-Length side-rails up, Phone within reach, personal items within reach, Safety level maintained High Risk Safety Door open, Room check performed Demonstrates Correct Call Light Use Yes 03/09/2022 7:29 EST Able To Drink Order Detail No Able To Sign Consents Order Detail Yes Code Status Order Detail Full code IV Order Detail Yes Dialysis Schedule Order Detail N/A Has Diabetes Order Detail No Isolation Precautions Order Detail None Nurse Collect Order Detail 0 Oxygen Order Detail No Order Detail No Prior Valve Replacement Order Detail No Transport Mode Order Detail Wheelchair and 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 [employer] 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 Details Form [employer] Black Trainer Details Form 03/09/2022 7:28 EST Belongings At Bedside Cell phone, Coat, Pants, Shirt, Shoes, T-shirt, Undergarments, Wallet Belongings At Bedside Not Done: Task Duplication (Not Done) Personal Home Medications Received No home medications were brought in Personal Home Medications Received Not Done: Task Duplication (Not Done) Belongings Sent Home None Belongings Sent Home Not Done: Task Duplication (Not Done) Belongings Sent To Security None Belongings Sent To Security Not Done: Task Duplication (Not Done) ED Valuables and Belongings Form Not Done (Not Done) ED Valuables and Belongings Form ED Valuables and Belongings Form 03/09/2022 7:27 EST Peripheral Pulse Rate 78 bpm Respiratory Rate 16 br/min Systolic Blood Pressure Non-Invasive 107 mmHg Diastolic Blood Pressure Non-Invasive 58 mmHg LOW Primary Pain Intensity 5 Pain Scale Type 0-10 Pain scale Nail Bed Color Glenn Capillary Refill < 2 seconds Respirations Unlabored Respiratory Pattern Regular Oxygen Therapy Room air Oxygen Saturation 98 % Level of Consciousness Alert Violence Risk Confused No Violence Risk Irritable No Violence Risk Boisterous No Violence Risk Verbal Threats No Violence Risk Physical Threats No Violence Risk Attacking Objects No Violence Risk Predictor Score 0 Affect/Behavior Appropriate, Calm, Cooperative Appearance Clean Orientation Oriented x 4 Transport via Wheelchair Nursing Unit [facility] Standard Safety ID band on, Call device within reach, Bed in low position, Wheels locked, Upper/Half-Length side-rails up, personal items within reach 03/09/2022 6:56 EST Nurse Giving Report Contact Number HUANG Davis. Nurse Receiving Report HUANG Messer Date/Time Nurse Received Report 03/09/2022 6:56 Nursing Unit [facility] 03/09/2022 6:38 EST Patient Information Note Surgery given patient information 03/09/2022 6:35 EST Patient Information Note Per Dr. Alvarenga patient to now go to the MS floor prior to surgery. Per MS patient cannot be transported to the floor until after 0730. Patient updated on plan of care 03/09/2022 6:31 EST Heparin dose (APTT) Unknown APTT 31.5 seconds Protime 12.5 seconds PT International Ratio 1.1 ratio ABO/Rh Interp B POS Antibody Screen Gel Negative ABSC 03/09/2022 6:15 EST Nurse Giving Report Contact Number HUANG Davis Nurse Receiving Report RENAY Esposito updated on plan of care Date/Time Nurse Received Report 03/09/2022 6:15 Nursing Unit [facility] 03/09/2022 6:03 EST Peripheral Pulse Rate 82 bpm Respiratory Rate 16 br/min Systolic Blood Pressure Non-Invasive 105 mmHg Diastolic Blood Pressure Non-Invasive 73 mmHg Reason For Taking VItal Signs 5 min post antibiotic start time Primary Pain Intensity 3 Pain Scale Type 0-10 Pain scale Monitor Alarms On and Limits Checked Heart Rhythm Regular Oxygen Therapy Room air Oxygen Saturation 99 % 03/09/2022 5:58 EST cefOXitin 2 gram(s) gram(s) Sodium Chloride 0.9% 100 mL mL 03/09/2022 5:[address] Abd/Pelvis w/ IV Contrast Only CT ABD/PELVIS W/ IV CONTRAST ONLY 03/09/2022 5:26 EST Peripheral Pulse Rate 88 bpm Respiratory Rate 18 br/min Systolic Blood Pressure Non-Invasive 120 mmHg Diastolic Blood Pressure Non-Invasive 72 mmHg Reason For Taking VItal Signs Pain assessment Primary Pain Intensity 3 Pain Scale Type 0-10 Pain scale Oxygen Therapy Room air Oxygen Saturation 99 % 03/09/2022 5:00 EST Status PAP Smear N/A Antecubital Right 03/09/2022 18 gauge Peripheral IV Activity: Insert new site Peripheral IV Dressing Condition: Clean, Dry, Intact Peripheral IV Dressing Activity: Applied, Transparent dressing Peripheral IV Line Status/Patency: Flushes easily, 3ml normal saline flush, Good blood return Peripheral IV Site Condition: No complications Peripheral IV Equipment: IV Pump, PRN Adaptor Peripheral IV Number of Attempts: 1 History of Fall in Last 3 Months Catalan No Thoughts of Harming Others - History No Thoughts of Harming Yourself - History Patient denies over the past six (6) months or longer Domestic Concerns Denies Advanced Directives No - refuses information Individuals Taught Patient Learning Readiness Willing to learn Barriers to Learning None evident Teaching Method Demonstration, Explanation Teaching Evaluation Returns demonstrations correctly, Verbalizes/Nonverbally indicates understanding, No further teaching needed Preferred Written Language Palauan Family/Caregiver Prefer Written Language Palauan Preferred Spoken Language Palauan Family/Caregiver Prefer Spoken Language Palauan Chief Complaint Arrives from home with c/o lower bilateral sharp abdominal pain that woke her up at 0300 this morning. Patient is 6 months pp. Reports having her tubes removed at time of Place Where Injury/Illness Occurred Home Information Given by Patient Belongings At Bedside Discharged with patient Personal Home Medications Received No home medications were brought in Belongings Sent Home None Belongings Sent To Security None Anticoagulants Taken In Past 6 Wks. No Participates in Clinical Trial N/A Yes Anesthesia/Transfusions Prior anesthesia ED Assessment Note - Nursing ED Patient History Form 03/09/2022 4:48 EST Primary Pain Intensity 10 ketorolac 15 mg mg Sodium Chloride 0.9% 500 mL mL 03/09/2022 4:43 EST Temperature Oral 36.6 DegC Peripheral Pulse Rate 112 bpm HI Respiratory Rate 20 br/min Systolic Blood Pressure Non-Invasive 135 mmHg Diastolic Blood Pressure Non-Invasive 88 mmHg Blood Pressure Location Left arm Primary Pain Location Abdomen Abdominal Pain Location LLQ, RLQ Primary Pain Laterality Lateral Primary Pain Intensity 10 Primary Pain Time Pattern acute, constant Primary Pain Onset Sudden Primary Pain Duration 0300 Primary Pain Quality Sharp Pain Scale Type 0-10 Pain scale LISE Level 1 No LISE Level 2 No LISE Level 3 Many Vital Signs LISE No Recommended LISE Level 3 Nail Bed Color Glenn Capillary Refill < 2 seconds Respirations Unlabored Respiratory Pattern Regular All Lobes Breath Sounds Clear Cough None Oxygen Therapy Room air Oxygen Saturation 100 % Abdomen Description Non-distended, Symmetric, Soft Abdomen Palpation Tender Abdomen Tender All quadrants Bowel Sounds All Quadrants Present Urinary Elimination Voiding, no difficulties Skin Temperature Warm Skin Description Pale Skin Integrity Intact Skin Turgor Elastic Neurological Symptoms Patient denies Level of Consciousness Alert Loss of Consciousness No Eye Opening Response Mary Lou Spontaneously Best Motor Response [place] Obeys simple commands Best Verbal Response Mary Lou Oriented Mary Lou Coma Score 15 CHARLES Yes Strength All Extremities Strong Tone All Extremities Normal Sensation All Extremities Intact Catalan 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 History of Fall in Last 3 Months Catalan No Presence of Secondary Diagnosis Catalan No Use of Ambulatory Aid Catalan None, bedrest, wheelchair, nurse IV/PRN Adapter Fall Risk Catalan Yes Gait Weak or Impaired Fall Risk Catalan Normal, bedrest, immobile Mental Status Fall Risk Catalan Oriented to own ability Catalan Fall Risk Score 20 Violence Risk Confused No Violence Risk Irritable No Violence Risk Boisterous No Violence Risk Verbal Threats No Violence Risk Physical Threats No Violence Risk Attacking Objects No Violence Risk Predictor Score 0 Affect/Behavior Cooperative, Tearful, Restless Appearance Clean, Well groomed, Attire appropriate, Neat Orientation Oriented x 4 Wish To Be No Suicidal Thoughts No Ever Made Plans to End Your Life No Suicide Severity Rating No problems noted Infectious Disease Symptoms Patient states no symptoms Infectious Disease Recent Exposure No Alcohol and Drug Use No Employee of Institutional Living No Health Care Employee No History of Exposure to TB No History of Positive Chest X-Ray for TB No History of Positive TB Skin Test No Homeless No Known Immunosuppression No Recent Immigrant No Resident of Institutional Living No Bloody Sputum No Fatigue No Fever No Loss of Appetite No Night Sweats No Persistent Cough > 3 Weeks No Weight Loss No Preferred Written Language Palauan Preferred Spoken Language [place]an Tracking Group ED AO Tracking Group Tracking Acuity 3 Mode of Transfer Private vehicle Standard Safety ID band on, Call device within reach, Bed in low position, Wheels locked, Upper/Half-Length side-rails up, Phone within reach, personal items within reach, Bedside Cart Locked Prev Test Positive/Diagnosis w/COVID-19 No Current Quarantine/Isolated any Illness No Any Contact with Sick Animals/Birds No Traveled Anywhere in Last 30 Days No ED Triage Adults ED Triage Adults 03/09/2022 4:38 EST WBC 8.1 10^3/mcL RBC 4.72 10^6/mcL Hgb 14.4 G/dL Hct 42.1 % MCV 89.1 fL MCH 30.5 pg MCHC 34.2 G/dL RDW 12.6 % Platelet 281 10^3/mcL MPV 7.3 fL LOW Monocyte Distribution Width 15.84 Neutrophil % 43.7 % Lymphocyte % 38.7 % Monocyte % 7.4 % Eosinophil % 7.9 % HI Basophil % 2.3 % Neutrophil, Absolute 3.5 10^3/mcL Lymphocyte, Absolute 3.1 10^3/mcL Monocyte, Absolute 0.6 10^3/mcL Eosinophil, Absolute 0.6 10^3/mcL HI Basophil, Absolute 0.2 10^3/mcL UA Specimen Type Clean Catch UA Color Yellow UA Appear Clear UA Spec Grav >=1.030 UA Glucose Negative mg/dL UA Bili Negative UA Ketones Negative mg/dL UA Blood Trace UA pH 5.5 UA Protein Negative mg/dL UA Urobilinogen 0.2 E.U./dL UA Nitrite Negative UA Leuk Est Trace UA RBC None Seen /HPF UA WBC 0-5 /HPF UA Squam Epithelial 0-5 /HPF Test Urine Negative test (u) int test (u) int Glucose Level 107 mg/dL HI Sodium Level 141 mmol/L Potassium Level 3.6 mmol/L Chloride 103 mmol/L CO2 29 mmol/L Electrolyte Balance 9.0 mEq/L BUN 17 mg/dL Creatinine Lvl (s) 0.75 mg/dL BUN/Creatinine Ratio 23 ratio Calcium Lvl 9.1 mg/dL Total Protein 7.5 G/dL Albumin Level 4.3 G/dL Globulin 3.2 G/dL NA A/G Ratio 1.3 ratio Bili Total 0.5 mg/dL Alk Phos 78 U/L AST/SGOT 19 U/L ALT/SGPT 22 U/L GFR Non- 96 ml/min/1.73sqm NA GFR 116 ml/min/1.73sqm NA Lipase Level 50 U/L QC PRGUN Negative QC PRGUP Positive 03/09/2022 4:32 EST [place] [facility] Note General Medical Problem *ED . Assessment and Plan [place] [employer] (ASA) physical status classification: Class II. Anesthetic Preoperative Plan Anesthetic technique: General. Maintenance airway: Oral endotracheal tube. Postoperative pain management: Per surgeon. Risks discussed: nausea, vomiting, sore throat, dental injury, hypotension, allergic reaction, serious complications. Informed consent: signed by patient. Digitally Signed by RAIZA MCGRATH on 03/09/2022 09:27 AM [facility] Hospital course Narrative Note Date & Type Note Facility Hospital course Narrative No data available for this section [facility] Summary Purpose Family History No Family History Records FoundNo Family History Records FoundNo Family History Records Found Advance Directives No Advanced Directives Records FoundNo Advanced Directives Records FoundNo Advanced Directives Records Found Additional Source Comments INFORMATION SOURCE (unrecogn ized section and content) DATE CREATED AUTHOR 08/17/2017 [facility] DATE CREATED AUTHOR AUTHOR'S ORGANIZ ATION 09/01/2021 [facility] DATE CREATED AUTHOR AUTHOR'S ORGANIZ ATION 07/02/2022 [facility] ([place]) Care Team (unrecognized sect ion and content) Care Team Personnel Name: HUANG Martinez Position: THAD RN Member Role: ED RN Name: ADRIANA PACHECO MD Position: ED Physician Member Role: ED Physician Address: Address: [address] [place] [address] FOR RECORDS PERTAINING TO PATIENTS WHO ARE OR HAVE BEEN ENROLLED IN A CHEMICAL DEPENDENCY/SUBSTANCEABUSE PROGRAM, SOME INFORMATION MAY BE OMITTED. This clinical summary was aggregated from multiple sources. Caution should be exercised in using it in the provision of clinical care. This summary normalizes information from multiple sources, and as a consequence, information in this document may materially change the coding, format and clinical context of patient data. In addition, data may be omitted in some cases. CLINICAL DECISIONS SHOULD BE BASED ON THE PRIMARY CLINICAL RECORDS. [facility] [employer] [facility]. provides no warranty or guarantee of the accuracy or completeness of information in this document.
[2023-12-28 08:41] LABS: HPV Reflexed? NOT INDICATED
== END | disposition home or self-care (01) ==
LOC: WOBLAB 15:23 → LABSPEC 15:26
PROVIDERS: PCP Family Medicine; Referring Provider Obstetrics & Gynecology; Visit Provider Obstetrics & Gynecology
DX: Z12.4 Encounter for screening for malignant neoplasm of cervix (principal)
CPT/HCPCS: 88175; G0145